=== PATIENT | female | born 1995 | race Caucasian/White ===

== ENCOUNTER → 2018-12-17 21:22 | Outpatient (CLI) | payer OTHER, SELFPAY ==
[2018-12-17 21:42] VITALS: BMI 25.4
== END ==
PROVIDERS: PCP Family Medicine; Visit Provider Emergency Medicine
DX: J02.0 Streptococcal pharyngitis (principal)
CPT/HCPCS: G0463; J0561

== ENCOUNTER → 2019-02-14 09:26 | Outpatient (CLI) | payer OTHER, SELFPAY | PROVIDERS: PCP Family Medicine; Visit Provider Nurse Practitioner | DX: J02.9 Acute pharyngitis, unspecified (principal) | CPT/HCPCS: 87070; 87077; 87186 ==

== ENCOUNTER → 2020-06-30 16:19 | Outpatient (CLI) | payer OTHER, SELFPAY | PROVIDERS: PCP Family Medicine; Visit Provider Internal Medicine Adolescent Medicine | DX: Z20.828 Contact with and (suspected) exposure to other viral communicable diseases (principal) | CPT/HCPCS: U0003 ==

== ENCOUNTER → 2020-07-22 08:14 | Outpatient (CLI) | payer OTHER, SELFPAY ==
--- NOTE | 2020-07-22 08:18 | US_ITS ---
PROCEDURE: US ABDOMEN LIMITED CLINICAL INDICATION: RUQ ABD PAIN COMPARISON: No exams were available for comparison FINDINGS: PANCREAS: Unremarkable. No obvious mass or abnormal fluid collection. No ductal dilatation LIVER: No focal liver lesions demonstrated. Homogeneous echogenicity. No intrahepatic biliary ductal dilatation evident. There is appropriate direction of blood flow within a non dilated portal vein RIGHT KIDNEY: Unremarkable. Normal size and echogenicity. No hydronephrosis GALLBLADDER: No gallstones, gallbladder wall thickening, pericholecystic fluid, or biliary dilatation. IMPRESSION: Unremarkable limited abdominal ultrasound as detailed above disc Dictated by: Panfilo Corley MD 07/22/2020 12:47 Panfilo Corley MD in [place] 07/22/2020 12:47
== END ==
PROVIDERS: PCP Family Medicine; Visit Provider Family Medicine
DX: R10.11 Right upper quadrant pain (principal)
CPT/HCPCS: 76705

== ENCOUNTER → 2020-07-23 11:54 | Outpatient (CLI) | payer OTHER, SELFPAY ==
--- NOTE | 2020-07-23 12:01 | CT_ITS ---
PROCEDURE: CT ABDOMEN PELVIS W CON CLINICAL INDICATION: GENERALIZED ABD PAIN Right upper quadrant and periumbilical pain with nausea and diarrhea COMPARISON: CT ABDPELW/O CT ABD PELVIS W/O CONTRAST from 08/14/2015 TECHNIQUE: IV Contrast: 75ML OPTIRAY 350 Oral Contrast 450ml Redicat Axial images obtained with sagittal and coronal reformats. All CT scans at the facility use one or more dose reduction, viz: automated exposure control, ma/kV adjustment per patient size (including targeted exams where dose is matched to indication, i.e. head), or iterative reconstruction technique. FINDINGS: LOWER THORAX: No acute finding ABDOMEN & PELVIS: The liver, spleen, adrenal glands, pancreas, and kidneys have an unremarkable appearance. No evidence of appendicitis, intestinal obstruction, or free air. There are few scattered small mesenteric lymph nodes. There is mild thickening of the sigmoid colon and rectosigmoid region. This is nonspecific and could be related to nondistention or mild colitis. There is some heterogeneous enhancement of the uterus which is also nonspecific. No pelvic mass or abnormal fluid collection is evident. No acute bony anomaly. IMPRESSION: 1. There is mild thickening of the sigmoid colon and rectosigmoid region. This is nonspecific and may be secondary to nondistention versus mild colitis. 2. No renal or ureteral calculi. No evidence of appendicitis or other acute anomaly. Dictated by: Panfilo Corley MD 07/23/2020 13:10 Panfilo Corley MD in [place] 07/23/2020 13:10
== END ==
PROVIDERS: PCP Family Medicine; Visit Provider Family Medicine
DX: R10.84 Generalized abdominal pain (principal); R11.0 Nausea; R19.7 Diarrhea, unspecified
CPT/HCPCS: 74177; Q9967

== ENCOUNTER → 2020-07-24 09:25 | Outpatient (CLI) | payer OTHER, SELFPAY ==
[2020-07-24 09:27] LABS: Adenovirus F 40/41, stool Not Detected (NotDetected); Astrovirus Not Detected (NotDetected); Campylobacter Not Detected (NotDetected); Clostridium Difficile A/B, PCR Not Detected (NotDetected); Cryptosporidium Not Detected (NotDetected); Cyclospora Cayetanesis Not Detected (NotDetected); Entamoeba histolytica Not Detected (NotDetected); Enteroaggregative E coli Not Detected (NotDetected); Enteropathogenic E coli Not Detected (NotDetected); Enterotoxigenic E coli Not Detected (NotDetected); Giardia lamblia Not Detected (NotDetected); Norovirus Not Detected (NotDetected); Plesimonas Shigalloides, PCR Not Detected (NotDetected); Rotavirus A Not Detected (NotDetected); Salmonella, PCR Not Detected (NotDetected); Sapovirus Not Detected (NotDetected); Shiga-like toxin E coli Not Detected (NotDetected); Shigella Enterovasive E coli Not Detected (NotDetected); Vibrio Cholerae Not Detected (NotDetected); Vibrio, PCR Not Detected (NotDetected); Yersinia Entercolitica, PCR Not Detected (NotDetected)
== END ==
PROVIDERS: Visit Provider Surgery
DX: R19.7 Diarrhea, unspecified (principal)
CPT/HCPCS: 87506

== ENCOUNTER 2022-06-19 12:54 | Emergency (ER) | payer OTHER, SELFPAY ==
[2022-06-19 13:05] VITALS: BP 120/75; PULSE 101; RESP 22; TEMP 36.8; O2SAT 99; BMI 28.7
--- NOTE | 2022-06-19 13:15 | HMH.EDUTC ---
[facility] [place] Disposition Clinical Impression: Strep throat Disposition: Home, Self-Care Condition on Discharge: Good Instructions: DI for Strep Throat, Strep Throat, Amoxicillin Additional Instructions: *Monitor Temp, Over the counter Motrin or Tylenol as directed/as needed Tylenol every 4 hours and Motrin every 6 hours (as long as your family doctor has told you that you can take it) for fever or pain. and straight to ER if unable to lower temp less than 101.0 after medication given *Warm salt water gargles may help to soothe the throat *Throat Lozenges *Warm fluids like tea with honey may help to soothe the throat *Sleep elevated *Humidifier/Vaporizer *If you did not take Penicillin shot or was unable to, start taking antibiotic immediately and make sure that you take it for the FULL length of time although you should start to feel better in 24-48 hours *change toothbrush and toothpaste 24-48 hours after starting to take antibiotics so you do not reinfect yourself Monitor Temp. Tylenol and/or Ibuprofen as needed. ER if fever is no less than 101 despite alternating Tylenol and Ibuprofen * Encourage fluids, water, Gatorade, powerade, pedialyte if /toddler/or child *Cold fluids, popsicles and ice cream may feel good on his throat Follow up IMMEDIATELY for new or worsening symptoms or no Noticeable improvement over the next 48-72 hours. 911 for difficulty breathing or swallowing Prescriptions: Amoxicillin [Amoxicillin 500mg Cap] 500 mg PO BID 10 Days #20 cap Transmission Status: Pending to [id number] Referrals: Gurpreet Gamez MD [Primary Care Provider] - As needed Time of Disposition: 13:21 Medical Decision Making - Sahil Inquiry Pt receiving controlled substance: No Sahil was queried for this patient: No Vital Signs: 06/19/22 13:05 Temperature 98.3 F Temperature Source Oral Pulse Rate [Right Brachial] 101 H Respiratory Rate 22 Blood Pressure [Right Arm] 120/75 Blood Pressure Mean [Right Arm] 90 Blood Pressure Source [Right Arm] Automatic Cuff Blood Pressure Position [Right Arm] Sitting 02 Sat by Pulse Oximetry 99 Oxygen Delivery Method Room Air - Lab Data Lab results reviewed: Yes: I reviewed the patient's lab results. Medical Decision Narrative: medication verified with pharmacy that is safe to use during [facility] [place] HPI - General Stated complaint: sore throat Time Seen by Provider: 06/19/22 13:15 Description of Symptoms (Recalled from Triage Doc. by RN): PT C/O SORE THROAT, HEADACHE, AND A COUGH THAT STARTED LAST NIGHT HEENT Symptoms (Recalled from RN notes): Yes Resp Symptoms (Recalled from RN notes): No Skin Symptoms (Recalled from RN notes): No MS Symptoms (Recalled from RN notes): No Functional Status (Recalled from RN notes): WNL - History of Present Illness Provider Complaint: Patient states that she is 31wks OB and last night she started with bad sore throat and cough States that she feels like she is swallowing razor blades and today she had a headache with it States that over all she just doesnt feel well so she came in to get checked out - Related Data Previous Rx's Medication Instructions Recorded ondansetron 4 mg disintegrating 4 mg PO Q6H PRN #120 tab 07/27/20 tablet Amoxicillin [Amoxicillin 500mg 500 mg PO BID 10 Days #20 cap 06/19/22 Cap] Allergies Allergy/AdvReac Type Severity Reaction Status Date / Time No Known Allergies Allergy Verified 03/14/19 15:30 - Worker's Comp Is this a Worker's Comp case?: No [facility] History - Hepatitis A Screen Attestation statement:: This patient has been screened for Hepatitis A risk factors. I have reviewed the patient's past medical history: Yes - Social History Smoking Status: Never smoker Alcohol Intake: never Substance Use Type: denies use Occupational Status: employed Household Members: family ROS Obtained: Yes All systems reviewed & no additional complaints, Yes Systems reviewed
[2022-06-19 13:18] LABS: UTC Strep Screen (Rapid) Positive (Negative)
[2022-06-19 13:20] VITALS: BP 120/75; PULSE 101; RESP 22; TEMP 36.8; O2SAT 99
== END 2022-06-19 13:25 | disposition home or self-care (01) ==
PROVIDERS: Emergency Provider Nurse Practitioner; PCP Family Medicine
DX: J02.0 Streptococcal pharyngitis (principal)
CPT/HCPCS: 87880; 99212; G0463

== ENCOUNTER 2023-03-02 18:04 | Observation (INO) | payer OTHER, SELFPAY ==
[2023-03-02] VITALS (14 sets, daily range): BP systolic 115–154; BP diastolic 51–96; PULSE 56–85; RESP 12–18; TEMP 36.2–43; O2SAT 90–99; BMI 27.3
--- NOTE | 2023-03-02 18:09 | HMH.EDGENADL ---
Discharge Plan Disposition Patient Disposition: Admitted As Inpatient Prescriptions Prescriptions: No Action alprazolam [Xanax] 0.25 mg tablet 0.25 mg PO BID PRN (Reason: Anxiety) sertraline [Zoloft] 50 mg tablet 50 mg PO DAILY Referrals Follow up/Referrals: Provider,Lindsey, [Primary Care Provider] - See instructions Clinical Impressions Clinical Impression: Intraperitoneal hemorrhage, of unknown anatomic location Instructions Patient Instructions: DI for Acute Abdominal Pain Discharge ED Provider: Agustin Kenyon General Adult HPI General Chief complaint: Abdominal Pain Stated complaint: abd pain Time Seen by Provider: 03/02/23 18:09 History of Present Illness HPI narrative: Patient is a 27-year-old previously healthy with a history of A1 who is currently at unknown dates presents today with abdominal pain was relatively sudden in nature. She works here in the emergency department states that within the last hour she had relatively sudden lower abdominal pain's been pretty significant since that time. Denies any constipation any changes in bowel habits or urination. No loss of fluid no vaginal bleeding no contractions. She does have a history of an ectopic diagnosed in 2012. She states this was treated at [facility]. She is followed by [employer] [facility] and is recently thinking about changing her care to Dr. Griffin here in [place]. She is not on any anticoagulation and she has no other significant medical problems. Related Data Home Medications Medication Instructions Recorded Confirmed alprazolam 0.25 mg tablet (Xanax) 0.25 mg PO BID PRN Anxiety 03/02/23 03/02/23 sertraline 50 mg tablet (Zoloft) 50 mg PO DAILY Anxiety 03/02/23 03/02/23 Allergies Allergy/AdvReac Type Severity Reaction Status Date / Time No Known Allergies Allergy Verified 02/02/23 10:48 [facility] Disclaimer: The information contained in this section may have been updated after the patient was seen, as this information can be updated by other users. Medical History (Updated 03/02/23 @ 19:31 by Agustin Kenyon MD) Generalized anxiety disorder Social History Smoking Status: Never smoker second hand exposure: No alcohol intake: never substance use type: denies use current occupational status: employed Travel in the last 8 weeks: None adopted: No caregiver/support person: Yes (for her kids) foster care: No household members: spouse and children housing: house lives independently: Yes marital status: number of children: 3 number of grandchildren: 0 education level: high school service: No alf: No Hx Recent Travel: No sexually active: Yes caffeine: Yes physical activity: none romi/quaker: Anabaptist special romi needs: No working smoke detector in home: Yes fire extinguisher in home: Yes carbon monox detector in home: Yes firearms in home: Yes firearms unloaded and locked: Yes do you feel safe at home: Yes victim of physical abuse: No victim of emotional abuse: No victim of sexual abuse: No would you like helpful sources: No ROS Obtained: Yes All systems reviewed & no additional complaints except as documented Physical Exam General General appearance: alert and other (Appears in mild distress and pain) Respiratory Respiratory exam: Absent respiratory distress Cardiovascular Cardiovascular exam: Present regular rate Abdominal Exam Abdominal exam: Present soft and tenderness (Tenderness palpation suprapubic no rebound or guarding) Neurological Exam Neurological exam: Present alert and oriented X3 Medical Decision Making Sahil Inquiry Pt receiving controlled substance: No Vital Signs: 03/02/23 18:05 Temperature 98.1 F Temperature Source Oral Pulse Rate [Left] 76 Respiratory Rate 18 Blood P
--- NOTE | 2023-03-02 18:10 | PC.NURSE ---
US CALLED IN FOR R/O ECTOPIC
--- NOTE | 2023-03-02 18:10 | US_ITS ---
PROCEDURE INFORMATION: Exam: US First Trimester, Transabdominal and US , Transvaginal Exam date and time: 03/02/2023 6:39 PM Age: 27 years old Clinical indication: complicated by abdominal or pelvic pain; Lower; First trimester (<14 weeks 0 days); Gestational age or lmp: 4w3d; ; Patient HX: Onset or acute pelvic pain /back pain tonight---bhcg 285-- post x 7 mos-- unsure of lmp 01/30/2023 ? ? -- no bleeding; Additional info: Abd pain, TECHNIQUE: Imaging protocol: Real-time transabdominal obstetrical ultrasound of the maternal pelvis and a first trimester , less than 14 weeks 0 days, with image documentation. Transvaginal imaging was used for better evaluation of the fetus, adnexa, and/or cervix. COMPARISON: CT ABDOMEN PELVIS W CON 07/23/2020 12:22 PM FINDINGS: Gestation: See Uterus finding. MATERNAL: Uterus: Uterus appears normal. No visible IUP identified. Cervix: Unremarkable. Right ovary/adnexa: Right ovary contains a multilobulated cystic lesion measuring 2.6 cm. Right ovarian blood flow noted. Small amount of free fluid in the right adnexa and minimal fluid in Morison's pouch. Left ovary/adnexa: Left ovary appears normal with blood flow. Intraperitoneal space: No intraperitoneal free fluid. IMPRESSION: 1. No visible IUP identified. This may be due to early gestational age. In the setting of positive test with no visible IUP an occult ectopic can not be excluded. Correlation with serial hCGs may be of value and consider short-term follow-up ultrasound in 2-3 weeks to assess for developing live IUP. 2. Incidental 2.6 cm right ovarian cystic lesion likely a partially collapsed physiologic cyst. 3. Incidental small amount of free fluid in the pelvis and Morison's pouch.
[2023-03-02 18:26] LABS: Microscopic, Urine URINE MICROSCOPIC (MICROSCOPIC)
[2023-03-02 18:32] LABS: Appearance,Urine CLEAR (Clear); Bilirubin,Urine Negative (Negative); Blood, Urine 2+ (Negative); Color,Urine YELLOW (Yellow); Glucose,Urine (UA) Negative (Negative); Ketones,Urine Negative (Negative); Leukocyte Esterase,Urine 1+ (Negative); Nitrate,Urine Negative (Negative); Protein,Urine TRACE (Negative); Urobilinogen,Urine 0.2 EU/dl (0.2)
--- NOTE | 2023-03-02 18:36 | PC.NURSE ---
PT GOING TO US
[2023-03-02 18:38] LABS: Basophils # 0.1 K/mm3 (0-0.2); Basophils % 1.2 % (0.1-2.0); Eosinophils # 0.2 K/mm3 (0.0-0.4); Eosinophils % 2.5 % (0.1-12.0); Hemoglobin 13.7 g/dL (12.2-16.2); Lymphocytes # 3.1 K/mm3 (0.7-4.5); Lymphocytes % 35.4 % (10-50); Mean Corpuscular HGB Conc 33.3 g/dL (31.8-35.4); Mean Corpuscular Hemoglobin 29.6 pg (27.0-31.2); Mean Corpuscular Volume 88.7 fl (81-99); Mean Platelet Volume 7.8 fl (7.4-10.4); Monocytes # 0.6 K/mm3 (0.1-1.0); Monocytes % 7.1 % (1.7-9.3); Neutrophils # 4.7 K/mm3 (1.8-7.8); Neutrophils % 53.7 % (37.0-80.0); Platelet Count 324 K/mm3 (142-424); Red Blood Count 4.62 M/mm3 (4.20-5.40); Red Cell Distribution Width 13.6 % (11.5-17.5); White Blood Count 8.8 K/mm3 (4.8-10.8)
[2023-03-02 18:50] LABS: Chloride 101 mmol/L (98-107); Sodium 138 mmol/L (136-145)
[2023-03-02 18:53] LABS: Alanine Aminotransferase 22 U/L (12-78); Albumin Level 4.8 g/dl (3.5-5.0); Albumin/Globulin Ratio 1.4 (1.1-1.8); Alkaline Phosphatase 101 U/L (38-126); Aspartate Amino Transferase 26 U/L (14-36); Bilirubin,Total 0.4 mg/dl (0.2-1.3); Blood Urea Nitrogen 14 mg/dl (7-17); Carbon Dioxide 28 mmol/L (22.0-30.0); Creatinine Clearance Estimated 144 mL/min (50-200); Estimated Glomerular Filt Rate 118 ml/min (>60); GFR (African American) 143 ML/MIN (>60); Globulin 3.4 g/dL (1.3-3.2); Total Protein,Serum 8.2 g/dl (6.3-8.2)
[2023-03-02 18:54] LABS: Glucose 100 mg/dl (74-100)
[2023-03-02 18:58] LABS: Bacteria,Urine 2+ /lpf; RBC,Urine Occasional #/hpf (0-3); WBC,Urine Occasional #/hpf (0-3)
[2023-03-02 19:01] LABS: Activated Partial Thrombo Time 31.4 seconds (22.8-30.6); Prothrombin Time 9.8 seconds (10.1-12.5)
[2023-03-02 19:10] LABS: HCG,Quantitative 295 mIU/ml (0-5.42)
--- NOTE | 2023-03-02 19:16 | PC.NURSE ---
Dr. Kenyon speaking with Dr. Barrera at this time.
--- NOTE | 2023-03-02 19:30 | PC.NURSE ---
Spoke with house to have surgery team paged
--- NOTE | 2023-03-02 19:32 | PC.NURSE ---
Surgery team paged, and received call back.
--- NOTE | 2023-03-02 20:01 | EXP.HP ---
History of Present Illness *Admission Date: 03/02/23 *Reason for visit:: Acute pelvic pain *History of present illness: Mrs Esmer Thompson is a 27 yo at unknown early gestational age who presents with complaint of sudden onset pelvic pain around 1800 this evening while at work. She states she went to the bathroom when pain startedto check for vaginal bleeding. No vaginal bleeding but pain increased and she became diaphoretic. She admits to associated nausea. Beta hcg quant 295. ABO RH is pending. Hgb 13.7. She last ate at 1700. History of SAB in 2012 for which she had a diagnostic laparoscopy but is unsure if she had an ectopic or not. Hx of x 3: 07/06/2018, 01/02/2020, 07/28/22. She is currently breast feeding. Denies past medical history. Pelvic ultrasound demonstrated: no visible IUP.. This may be due to early gestational age. In the setting of positive test with no visible IUP an occult ectopic can not be excluded.? Correlation with serial hCGs may be of value and consider short-term follow-up ultrasound in 2-3 weeks to assess for developing live IUP. 2. Incidental 2.6 cm right ovarian cystic lesion likely a partially collapsed physiologic cyst. 3. ?Incidental small amount of free fluid in the pelvis and Morison's pouch. [facility] Disclaimer: The information contained in this section may have been updated after the patient was seen, as this information can be updated by other users. Medical History Acute generalized abdominal pain Generalized anxiety disorder Social History Smoking Status: Never smoker second hand exposure: No alcohol intake: never substance use type: denies use current occupational status: employed Travel in the last 8 weeks: None adopted: No caregiver/support person: Yes (for her kids) foster care: No household members: spouse and children housing: house lives independently: Yes marital status: number of children: 3 number of grandchildren: 0 education level: high school service: No custodial: No Hx Recent Travel: No sexually active: Yes caffeine: Yes physical activity: none romi/sabianist: Rastafarian special romi needs: No working smoke detector in home: Yes fire extinguisher in home: Yes carbon monox detector in home: Yes firearms in home: Yes firearms unloaded and locked: Yes do you feel safe at home: Yes victim of physical abuse: No victim of emotional abuse: No victim of sexual abuse: No would you like helpful sources: No Review of Systems Review of Systems Review of systems:: pertinent systems reviewed and negative unless documented below *Gastrointestinal Gastrointestinal: Reports abdominal pain and Reports nausea Meds Home Medications and Allergies Home Medications Medication Instructions Recorded Confirmed Type alprazolam 0.25 mg tablet (Xanax) 0.25 mg PO BID PRN Anxiety 03/02/23 03/02/23 History sertraline 50 mg tablet (Zoloft) 50 mg PO DAILY Anxiety 03/02/23 03/02/23 History New Prescriptions to Start Prescriptions: Allergies Allergy/AdvReac Type Severity Reaction Status Date / Time No Known Allergies Allergy Verified 02/02/23 10:48 Exam Data for Last 24 hours Vital signs and Labs for Last 24 Hours: Temp Pulse Resp BP Pulse Ox 98.1 F 76 18 140/93 H 99 03/02/23 18:05 03/02/23 18:05 03/02/23 18:05 03/02/23 18:05 03/02/23 18:05 Laboratory Results - last 24 hr 03/02/23 18:10: Urine Color Yellow, Urine Appearance Clear, Urine pH 8.0, Ur Specific [place] 1.010, Urine Protein Trace, Urine Glucose (UA) Negative, Urine Ketones Negative, Urine Blood 2+, Urine Nitrate Negative, Urine Bilirubin Negative, Urine Urobilinogen 0.2, Ur Leukocyte Esterase 1+ A, Urine RBC Occasional, Urine WBC Occasional, Ur Squamous Epith Cells 5-10,
--- NOTE | 2023-03-02 20:13 | PC.NURSE ---
Patient prepped for OR. Surgery team here to transport patient
--- NOTE | 2023-03-02 21:13 | P.PN_ITS ---
[facility] Disclaimer: The information contained in this section may have been updated after the patient was seen, as this information can be updated by other users. Medical History Acute generalized abdominal pain Generalized anxiety disorder Social History Smoking Status: Never smoker second hand exposure: No alcohol intake: never substance use type: denies use current occupational status: employed Travel in the last 8 weeks: None adopted: No caregiver/support person: Yes (for her kids) foster care: No household members: spouse and children housing: house lives independently: Yes marital status: number of children: 3 number of grandchildren: 0 education level: high school service: No long-term: No Hx Recent Travel: No sexually active: Yes caffeine: Yes physical activity: none romi/scientology: Mu-Ism special romi needs: No working smoke detector in home: Yes fire extinguisher in home: Yes carbon monox detector in home: Yes firearms in home: Yes firearms unloaded and locked: Yes do you feel safe at home: Yes victim of physical abuse: No victim of emotional abuse: No victim of sexual abuse: No would you like helpful sources: No [facility] Anesthesia Checklist Patient Identification Patient Identification: Verbal (Name & ) Structural Data Admitted From: Emergency Dept Planned Operative Procedure/s: dx laparoscopy Consent for Planned Operative Procedure(s) Verified: Yes Airway Assessment C-Spine Mobility Assessed: Yes TMJ Mobility Assessed: Yes Dentition: Good Dentition Neurological Assessment Level of Consciousness: Awake, Alert and Appropriate Anesthesia Plan Anesthesia Risk discussed: Yes Anesthesia Plan: Verified ASA Class: II Anesthesia Type: General
--- NOTE | 2023-03-02 21:34 | EXP.ANES.I ---
[facility] Anesthesia Record Part I Anesthesia Record I Intake, IV Amount: 1,500 Estimated blood loss (mL): 50 Urine output (mL): 500 Blood Pressure: 150/83 SaO2: 94 Pulse Rate: 85 Respiratory Rate: 12 Temperature: 97.2 F Patient is:: Awake and Stable Stable to PACU at:: 21:30
--- NOTE | 2023-03-02 21:38 | EXP.OP.NOTE ---
Date of procedure: 03/02/23 Pre-op Diagnosis:: 1. of unknown location 2. Intraperitoneal hemorrhage 3. Abdominal pain Post-op Diagnosis:: 1. of unknown location 2. Intraperitoneal hemorrhage 3. Abdominal pain Procedure performed:: 1. Diagnostic laparoscopy, evacuation of hemoperitoneum Surgeon:: Tigist Barrera DO Tube Turner(s):: N/a MAC OPERATOR:: Henry Botello Anesthesia: GETA Estimated blood loss (mL): 50 Clinical Note:: Mrs Esmer Thompson is a 27 yo at unknown early gestational age who presents with complaint of sudden onset pelvic pain around 1800 this evening while at work. She states she went to the bathroom when pain startedto check for vaginal bleeding. No vaginal bleeding but pain increased and she became diaphoretic. She admits to associated nausea. Beta hcg quant 295. ABO RH is pending. Patient states she has never needed Rhogam with prior pregnancies. Hgb 13.7. She last ate at 1700. History of SAB in 2012 for which she had a diagnostic laparoscopy but is unsure if she had an ectopic or not. Hx of x 3: 07/06/2018, 01/02/2020, 07/28/22. She is currently breast feeding. Denies past medical history. Pelvic ultrasound demonstrated:?no visible IUP.. This may be due to early gestational age. In the setting of positive test with no visible IUP an occult ectopic can not be excluded.? Correlation with serial hCGs may be of value and consider short-term follow-up ultrasound in 2-3 weeks to assess for developing live IUP.? 2. Incidental 2.6 cm right ovarian cystic lesion likely a partially collapsed physiologic cyst. 3. ?Incidental small amount of free fluid in the pelvis and Morison's pouch. Operative findings:: 1. Upon laparoscopic exam, liver, gallbladder, stomach and bowel appeared grossly normal. Approximately 50 cc of blood in the pelvis. Grossly normal appearing uterus, bilateral fallopian tubes and ovaries. No ectopic pregancy identified. Operative note:: Risks, benefits and alternatives were discussed with the patient. Risks include but are not limited to bleeding, infection, damage to adjacent structures and VTE. Patient voiced understanding and agreed to proceed with surgery. She was wheeled back to the operating room and placed under general anesthesia without difficulty. She was placed in the dorsal lithotomy position and prepped and draped in normal sterile fashion. A straight catheter was used to drain the bladder. The patient received 2 grams of Ancef preoperatively. SCDs in place. A weighted Auvard was placed in the vaginal vault. A single tooth tenaculum was placed on the anterior lip of the cervix. Short Mesick manipulator was inserted into the cervical canal and attached to the tenaculum. Weighted Auvard was removed from the vagina. Attention was then drawn to the abdomen. A 2cm infraumbilical incision was made. Veress needle was tested and inserted intraabdominally without difficulty. Opening pressure of 5 mm Hg. Abdomen was then insulflated to 15 mm Hg. An 11 mm trocar was inserted through infraumbilical incision. Obturator was removed and sleeve was left in place. Laparoscope was inserted. Abdomen was viewed in its entirety. See findings above. Pictures were taken. Left lower quadrant was transilluminated. 5 mm incision was made and 5 mm disposable blunt trocar was inserted into the abdomen under direct laparoscopic visualization. Trocar was removed and sleeve was left in place. Right lower quadrant was transilluminated. A 5 mm incision was made and a 5 mm disposable trocar was inserted into the abdomen under direct laparoscopic visualization. Obturator was removed and sleeve was left in place. Hemoperitoneum was evacuated. Pelvis was irrigated. No source of bleeding identified. No active bleeding noted. Pictures were taken. Left lower quadrant trocar was removed under direct laparoscopic visualization. Right lower quadrant trocar was removed under direct laparoscopic visualization.
--- NOTE | 2023-03-02 22:04 | PC.NURSE ---
Patient arrived to the unit at this time via stretcher. 2 OR staff and accompanied patient.
--- NOTE | 2023-03-02 22:16 | SUR.PHASEI ---
2199- Report called to PETER Cruz by PETER Myrick. 2204- Patient left in stable condition with PETER Cruz. All dressings clean, dry, and intact. Vital signs stable.
[2023-03-03] VITALS (9 sets, daily range): BP systolic 98–133; BP diastolic 45–96; PULSE 56–91; RESP 15–16; TEMP 36.2–36.8; O2SAT 90–98
--- NOTE | 2023-03-03 05:02 | PC.NURSE ---
Patient has remained afebrile throughout the night, thus far. No pain medication has been requested from patient. Incision sites remain clean, dry and intact. Respirations are equal and unlabored with breath sounds CTA. Bowel sounds are active. IV site is patent and non tender.
--- NOTE | 2023-03-03 06:51 | EXP.DC.SUM ---
General Admission date:: 03/02/23 Discharge date: 03/03/23 HPI HPI HPI: POD # 1 s/p diagnostic laparoscopy, evacuation of hemoperitoneum Resting comfortably in bed. Denies pain. Denies vaginal bleeding. She has been sleeping all night. Denies fever/chills, chest pain and shortness of breath. Voiding without difficulty and passing flatus. No nausea or vomiting. Hospital Course Hospital Course Hospital Course: Mrs Esmer Thompson is a 27 yo at unknown early gestational age who presents with complaint of sudden onset pelvic pain around 1800 this evening while at work. She states she went to the bathroom when pain startedto check for vaginal bleeding. No vaginal bleeding but pain increased and she became diaphoretic. She admits to associated nausea. Beta hcg quant 295. ABO RH is pending. Hgb 13.7. She last ate at 1700. History of SAB in 2012 for which she had a diagnostic laparoscopy but is unsure if she had an ectopic or not. Hx of x 3: 07/06/2018, 01/02/2020, 07/28/22. She is currently breast feeding. Denies past medical history. Pelvic ultrasound demonstrated: no visible IUP.. This may be due to early gestational age. In the setting of positive test with no visible IUP an occult ectopic can not be excluded.? Correlation with serial hCGs may be of value and consider short-term follow-up ultrasound in 2-3 weeks to assess for developing live IUP. 2. Incidental 2.6 cm right ovarian cystic lesion likely a partially collapsed physiologic cyst. 3. ?Incidental small amount of free fluid in the pelvis and Morison's pouch. She underwent diagnostic laparoscopy, evacuation of hemoperitoneum. She requested to stay overnight after surgery. Doing well this morning. Denies pain and vaginal bleeding. Voiding without difficulty and passing flatus. No fever/chills, chest pain or shortness of breath. Vital signs stable, afebrile. Discharge to home this morning if AM labs within normal limits and she continues to feel well. AM labs pending. Exam Data for Last 24 hours Vital signs and Labs for Last 24 Hours: Temp Pulse Resp BP Pulse Ox 97.9 F 83 15 100/53 L 97 03/03/23 04:15 03/03/23 04:15 03/03/23 04:15 03/03/23 04:15 03/03/23 04:15 Laboratory Results - last 24 hr 03/02/23 18:10: Urine Color Yellow, Urine Appearance Clear, Urine pH 8.0, Ur Specific [place] 1.010, Urine Protein Trace, Urine Glucose (UA) Negative, Urine Ketones Negative, Urine Blood 2+, Urine Nitrate Negative, Urine Bilirubin Negative, Urine Urobilinogen 0.2, Ur Leukocyte Esterase 1+ A, Urine RBC Occasional, Urine WBC Occasional, Ur Squamous Epith Cells 5-10, Urine Bacteria 2+ 03/02/23 18:15: WBC 8.8, RBC 4.62, Hgb 13.7, Hct 41.0, MCV 88.7, MCH 29.6, MCHC 33.3, RDW 13.6, Plt Count 324, MPV 7.8, Neut % (Auto) 53.7, Lymph % (Auto) 35.4, [place] % (Auto) 7.1, Eos % (Auto) 2.5, Baso % (Auto) 1.2, Neut # (Auto) 4.7, Lymph # (Auto) 3.1, [place] # (Auto) 0.6, Eos # (Auto) 0.2, Baso # (Auto) 0.1 03/02/23 18:15: PT 9.8 L, INR 0.90, APTT 31.4 H 03/02/23 18:15: Sodium 138, Potassium 4.0, Chloride 101, Carbon Dioxide 28, Anion Gap 13.0, BUN 14, Creatinine 0.60, Estimated Creat Clear 144, Estimated GFR 118, Est GFR ( Amer) 143, Glucose 100, Calcium 9.0, Total Bilirubin 0.4, AST 26, ALT 22, Alkaline Phosphatase 101, Total Protein 8.2, Albumin 4.8, Globulin 3.4 H, Albumin/Globulin Ratio 1.4, HCG, Quant 295 H 03/02/23 23:15: Blood Type O Positive, Antibody Screen Negative I & O for Last 24 hours: Intake & Output 02/28/23 03/01/23 03/02/23 03/03/23 23:59 23:59 23:59 23:59 Intake Total 1500 / 1500 Output Total 300 / 300 250 / 250 Balance 1200 / 1200 -250 / -250 Weight 145 lb 0.004 oz Constitutional Constitutional: no acute distress *Routine HEENT Exam Head: Present normocephalic and atraumatic Eye: Absent conjunctivae pink ENT: Present mucous membranes moist *Routine Neck Exam Neck: Present full ROM *Routine Respiratory Exam Respira
[2023-03-03 07:03] LABS: Basophils % 0.3 % (0.1-2.0); Eosinophils % 0.3 % (0.1-12.0); Hematocrit 41.8 % (37.0-47.0); Hemoglobin 13.6 g/dL (12.2-16.2); Lymphocytes # 1.3 K/mm3 (0.7-4.5); Lymphocytes % 12.7 % (10-50); Mean Corpuscular HGB Conc 32.7 g/dL (31.8-35.4); Mean Corpuscular Hemoglobin 28.8 pg (27.0-31.2); Mean Corpuscular Volume 88.3 fl (81-99); Mean Platelet Volume 7.8 fl (7.4-10.4); Monocytes # 0.3 K/mm3 (0.1-1.0); Monocytes % 2.5 % (1.7-9.3); Neutrophils # 8.6 K/mm3 (1.8-7.8); Neutrophils % 84.3 % (37.0-80.0); Platelet Count 343 K/mm3 (142-424); Red Blood Count 4.73 M/mm3 (4.20-5.40); Red Cell Distribution Width 13.8 % (11.5-17.5); White Blood Count 10.3 K/mm3 (4.8-10.8)
[2023-03-03 07:08] LABS: Chloride 103 mmol/L (98-107); Potassium 4.3 mmoL/L (3.5-5.1); Sodium 137 mmol/L (136-145)
[2023-03-03 07:10] LABS: Blood Urea Nitrogen 10 mg/dl (7-17); Creatinine Clearance Estimated 172 mL/min (50-200); Estimated Glomerular Filt Rate 146 ml/min (>60); GFR (African American) 177 ML/MIN (>60)
[2023-03-03 07:11] LABS: Alanine Aminotransferase 23 U/L (12-78); Albumin Level 4.3 g/dl (3.5-5.0); Albumin/Globulin Ratio 1.5 (1.1-1.8); Alkaline Phosphatase 93 U/L (38-126); Anion Gap 12.3 mEq/L (5-15); Aspartate Amino Transferase 23 U/L (14-36); Bilirubin,Total 0.5 mg/dl (0.2-1.3); Calcium 8.8 mg/dl (8.4-10.2); Carbon Dioxide 26 mmol/L (22.0-30.0); Globulin 2.9 g/dL (1.3-3.2); Glucose 137 mg/dl (74-100); Total Protein,Serum 7.2 g/dl (6.3-8.2)
[2023-03-03 07:30] LABS: HCG Qualitative, Serum Positive (Negative)
[2023-03-03 08:08] LABS: HCG,Quantitative 296 mIU/ml (0-5.42)
--- NOTE | 2023-03-03 08:10 | EXP.ANES.CKL ---
[facility] Disclaimer: The information contained in this section may have been updated after the patient was seen, as this information can be updated by other users. Medical History Acute generalized abdominal pain Anxiety Generalized anxiety disorder Family History (Updated 03/02/23 @ 23:34 by Johana Lee RN) Other No significant family history Social History (Updated 03/02/23 @ 23:35 by Johana Lee RN) Smoking Status: Never smoker second hand exposure: No alcohol intake: never substance use type: denies use current occupational status: employed Travel in the last 8 weeks: None adopted: No caregiver/support person: Yes (for her kids) foster care: No household members: spouse and children housing: house lives independently: Yes marital status: number of children: 3 number of grandchildren: 0 education level: high school service: No long term: No Hx Recent Travel: No sexually active: Yes caffeine: Yes physical activity: none romi/mu-ism: Amish special romi needs: No working smoke detector in home: Yes fire extinguisher in home: Yes carbon monox detector in home: Yes firearms in home: Yes firearms unloaded and locked: Yes do you feel safe at home: Yes victim of physical abuse: No victim of emotional abuse: No victim of sexual abuse: No would you like helpful sources: No [facility] Anesthesia Checklist Patient Identification Patient Identification: Verbal (Name & ) Structural Data Admitted From: Home Planned Operative Procedure/s: egd/colonoscopy Consent for Planned Operative Procedure(s) Verified: Yes Airway Assessment C-Spine Mobility Assessed: Yes TMJ Mobility Assessed: Yes Dentition: Good Dentition Neurological Assessment Level of Consciousness: Awake, Alert and Appropriate Anesthesia Plan Anesthesia Risk discussed: Yes Anesthesia Plan: Verified ASA Class: III Anesthesia Type: MAC
--- NOTE | 2023-03-03 08:29 | EXP.ANES.CKL ---
[facility] Disclaimer: The information contained in this section may have been updated after the patient was seen, as this information can be updated by other users. Medical History Acute generalized abdominal pain Anxiety Generalized anxiety disorder Family History (Updated 03/02/23 @ 23:34 by Johana Lee RN) Other No significant family history Social History (Updated 03/02/23 @ 23:35 by Johana Lee RN) Smoking Status: Never smoker second hand exposure: No alcohol intake: never substance use type: denies use current occupational status: employed Travel in the last 8 weeks: None adopted: No caregiver/support person: Yes (for her kids) foster care: No household members: spouse and children housing: house lives independently: Yes marital status: number of children: 3 number of grandchildren: 0 education level: high school service: No fpc: No Hx Recent Travel: No sexually active: Yes caffeine: Yes physical activity: none romi/restorationism: Mandaeism special romi needs: No working smoke detector in home: Yes fire extinguisher in home: Yes carbon monox detector in home: Yes firearms in home: Yes firearms unloaded and locked: Yes do you feel safe at home: Yes victim of physical abuse: No victim of emotional abuse: No victim of sexual abuse: No would you like helpful sources: No [facility] Anesthesia Checklist Patient Identification Patient Identification: Verbal (Name & ) Structural Data Admitted From: Home Planned Operative Procedure/s: hyst,d/c,bonnie Consent for Planned Operative Procedure(s) Verified: Yes NPO Status Verified Time NPO: 00:00 Airway Assessment C-Spine Mobility Assessed: Yes TMJ Mobility Assessed: Yes Dentition: Good Dentition Neurological Assessment Level of Consciousness: Awake, Alert and Appropriate Anesthesia Plan Anesthesia Risk discussed: Yes Anesthesia Plan: Verified ASA Class: II Anesthesia Type: General
--- NOTE | 2023-03-03 09:25 | P.PNANES_ITS ---
[facility] Anesthesia Record Part II Anesthesia Record Part II Discharge Time: 22:00 Destination: Outpatient Operating Room Dept PACU nurse assessment reviewed?: Yes Patient Condition:: Good Anesthesia Complications:: None Swallowing reflex intact?: Yes Cyanosis?: No Blood Pressure: 133/96 Pulse Rate: 66 Temperature: 97.2 F Mental Status: Alert & Oriented Pain level:: 4 Nausea and/or vomitting:: None Intake, IV Amount: 1,500
[2023-03-04 08:37] LABS: Progesterone 1.8 ng/mL (.)
== END 2023-03-03 08:35 | disposition home or self-care (01) ==
LOC: ER 19:31 → SDC 21:53 → OB 22:00
PROVIDERS: Admitting Provider Obstetrics & Gynecology; Emergency Provider Student in an Organized Health Care Education/Training Program; Visit Provider Obstetrics & Gynecology
PROC: (CPT 49320; principal; 2023-03-02 20:00)
DX: K66.1 Hemoperitoneum (principal); O36.80X0 Pregnancy with inconclusive fetal viability, not applicable or unspecified
CPT/HCPCS: 49320; 36415; 76817; 80053; 81001; 84144; 84702; 84703; 85025; 85610; 85730; 86850; 87086; 96374; G0378; J2405

== ENCOUNTER → 2023-03-06 08:55 | Outpatient (CLI) | payer OTHER, SELFPAY ==
[2023-03-06 09:48] LABS: HCG,Quantitative 398 mIU/ml (0-5.42)
[2023-03-07 11:13] LABS: Progesterone 2.9 ng/mL (.)
== END ==
PROVIDERS: Obstetrics & Gynecology; PCP Family Medicine; Visit Provider Student in an Organized Health Care Education/Training Program
DX: O36.80X0 Pregnancy with inconclusive fetal viability, not applicable or unspecified (principal)
CPT/HCPCS: 36415; 84144; 84702

== ENCOUNTER → 2023-03-08 12:19 | Outpatient (CLI) | payer OTHER, SELFPAY ==
[2023-03-08 13:01] LABS: HCG,Quantitative 438 mIU/ml (0-5.42)
== END ==
PROVIDERS: PCP Family Medicine; Visit Provider Obstetrics & Gynecology
DX: O36.80X0 Pregnancy with inconclusive fetal viability, not applicable or unspecified (principal)
CPT/HCPCS: 84702

== ENCOUNTER → 2023-03-10 07:21 | Outpatient (CLI) | payer OTHER, SELFPAY ==
[2023-03-10 08:09] LABS: HCG,Quantitative 437 mIU/ml (0-5.42)
[2023-03-11 08:24] LABS: Progesterone 11.1 ng/mL (.)
== END ==
PROVIDERS: PCP Family Medicine; Visit Provider Obstetrics & Gynecology
DX: O36.80X0 Pregnancy with inconclusive fetal viability, not applicable or unspecified (principal)
CPT/HCPCS: 84144; 84702

== ENCOUNTER → 2023-03-17 08:15 | Outpatient (CLI) | payer OTHER, SELFPAY ==
[2023-03-17 09:10] LABS: HCG,Quantitative 262 mIU/ml (0-5.42)
== END ==
PROVIDERS: PCP Family Medicine; Visit Provider Obstetrics & Gynecology
DX: O36.80X0 Pregnancy with inconclusive fetal viability, not applicable or unspecified (principal)
CPT/HCPCS: 84702

== ENCOUNTER → 2023-03-24 17:46 | Outpatient (CLI) | payer OTHER, SELFPAY ==
[2023-03-24 19:25] LABS: HCG,Quantitative 121 mIU/ml (0-5.42)
== END ==
PROVIDERS: PCP Family Medicine; Visit Provider Obstetrics & Gynecology
DX: Z34.90 Encounter for supervision of normal pregnancy, unspecified, unspecified trimester (principal)
CPT/HCPCS: 84702

== ENCOUNTER → 2023-04-03 08:57 | Outpatient (CLI) | payer OTHER, SELFPAY ==
[2023-04-03 10:00] LABS: HCG,Quantitative 23 mIU/ml (0-5.42)
== END ==
PROVIDERS: PCP Family Medicine; Visit Provider Obstetrics & Gynecology
DX: O03.9 Complete or unspecified spontaneous abortion without complication (principal)
CPT/HCPCS: 84702

== ENCOUNTER → 2023-04-17 09:33 | Outpatient (CLI) | payer OTHER, SELFPAY ==
[2023-04-17 11:10] LABS: HCG,Quantitative < 2 mIU/ml (0-5.42)
== END ==
PROVIDERS: PCP Family Medicine; Visit Provider Obstetrics & Gynecology
DX: O03.9 Complete or unspecified spontaneous abortion without complication (principal)
CPT/HCPCS: 84702

== ENCOUNTER → 2023-07-05 14:53 | Outpatient (CLI) | payer OTHER, SELFPAY ==
[2023-07-05 17:13] LABS: HCG,Quantitative 132 mIU/ml (0-5.42)
[2023-07-07 08:34] LABS: Progesterone 12.3 ng/mL (.)
== END ==
PROVIDERS: PCP Family Medicine; Visit Provider Obstetrics & Gynecology
DX: Z32.01 Encounter for pregnancy test, result positive (principal)
CPT/HCPCS: 36415; 84144; 84702

== ENCOUNTER → 2023-07-07 15:51 | Outpatient (CLI) | payer OTHER, SELFPAY ==
[2023-07-07 17:09] LABS: HCG,Quantitative 222 mIU/ml (0-5.42)
== END ==
PROVIDERS: PCP Family Medicine; Visit Provider Obstetrics & Gynecology
DX: Z32.01 Encounter for pregnancy test, result positive (principal)
CPT/HCPCS: 36415; 84702

== ENCOUNTER → 2023-07-18 08:48 | Outpatient (CLI) | payer OTHER, SELFPAY ==
[2023-07-18 09:45] LABS: HCG,Quantitative 6602 mIU/ml (0-5.42)
== END ==
PROVIDERS: PCP Obstetrics & Gynecology; Visit Provider Obstetrics & Gynecology
DX: Z32.01 Encounter for pregnancy test, result positive (principal)
CPT/HCPCS: 84702

== ENCOUNTER → 2023-08-14 11:41 | Outpatient (CLI) | payer OTHER, SELFPAY ==
--- NOTE | 2023-08-14 11:52 | US_ITS ---
PROCEDURE INFORMATION: Exam: US , Transvaginal Exam date and time: 08/14/2023 12:07 PM Age: 28 years old Clinical indication: Lmp or gestational age (in weeks): 8w6d; Antepartum complications; Bleeding; ; Patient HX: Spotting and cramping x 1 day; Additional info: Abdominal pain LABS AND CLINICAL REPORTS: Gestational age (Established): 8 w 6 d Estimated due date (Established): 03/19/2024 TECHNIQUE: Imaging protocol: Real-time transvaginal obstetrical ultrasound of the maternal pelvis with image documentation. Transvaginal imaging was used for better evaluation of the fetus, adnexa, and/or cervix. COMPARISON: US OB TRANSVAGINAL 03/02/2023 6:39 PM FINDINGS: Gestation: Yolk sac measures 5 mm. heart rate: No heartbeat detected. BIOMETRY: Gestational age (AUA): 6 w 4 d Estimated due date (AUA): 04/04/2024 Mean sac diameter: 18.5 mm [place]-Rump length (CRL): 3.8 mm. EGA (CRL) is 6 w 0 d MATERNAL: Right ovary/adnexa: Right ovary measures 2.42 cm x 1.56 cm x 1.59 cm. Right ovarian volume is 3.14 mL. No mass. Normal blood flow. Left ovary/adnexa: Left ovary measures 2.88 cm x 1.87 cm x 2.15 cm. Left ovarian volume is 6.06 mL. No mass. Normal blood flow. IMPRESSION: Intrauterine with AUA 6w4d. No heartbeat detected. Recommend follow-up ultrasound in 5-7 days and serial beta HCG per institutional protocol.
== END ==
PROVIDERS: PCP Family Medicine; Visit Provider Obstetrics & Gynecology
DX: Z3A.08 8 weeks gestation of pregnancy (principal); O20.9 Hemorrhage in early pregnancy, unspecified
CPT/HCPCS: 76817

== ENCOUNTER 2023-08-24 02:50 | Observation (INO) | payer OTHER, SELFPAY ==
[2023-08-24] VITALS (28 sets, daily range): BP systolic 105–147; BP diastolic 41–80; PULSE 54–96; RESP 16–20; TEMP 36.4–37.1; O2SAT 94–100; BMI 27.3
--- NOTE | 2023-08-24 02:58 | HMH.EDGENADL ---
Discharge Plan Disposition Patient Disposition: Admitted Condition: Fair Prescriptions Prescriptions: No Action [id number] 27 mg iron- 800 mcg-235 mg Capsule 1 cap PO DAILY Referrals Follow up/Referrals: Provider,Referral, [Primary Care Provider] - See instructions Clinical Impressions Clinical Impression: Miscarriage, Vaginal bleeding Discharge ED Provider: Joesph Adams General Adult HPI General Chief complaint: Vaginal Bleeding Stated complaint: Bleeding. Time Seen by Provider: 08/24/23 02:53 History of Present Illness HPI narrative: This otherwise healthy 28-year-old female presents to the emergency department with vaginal bleeding. Patient is G6, P3 and currently going through her third miscarriage. Patient states she was noted to have intrauterine at around 6 weeks, however last week she did not feel well and had repeat OB appointment where they identified a 6-week, 4-day gestational age fetus without cardiac activity. Review of the OB note demonstrates they did not administer Cytotec and pursued expectant management. Transvaginal ultrasound that was performed on 08/14/2023 was also reviewed and demonstrated intrauterine without cardiac activity. Patient started having spotting a few days ago but bleeding significantly increased in the last 24 hours. She is soaking through a pad every hour and passing clots. Patient syncopal episode which prompted emergency department evaluation. She states she was taking her 1-year-old back to their crib when she had blurry vision and syncopized. She woke up staring at the ceiling. Unclear how long she was unconscious for, family believes it was a few minutes. Patient states she has never had to have RhoGAM in the past but does not know her blood type. She states she took ibuprofen around 11 PM without significant improvement of her cramping pain. She is also having nausea. Related Data Home Medications Medication Instructions Recorded Confirmed vit 168-iron 27 mg-folic 1 cap PO DAILY Supplement 03/02/23 08/15/23 acid 800 mcg-omega3 235 mg capsule Allergies Allergy/AdvReac Type Severity Reaction Status Date / Time No Known Allergies Allergy Verified 08/15/23 08:29 [facility] Disclaimer: The information contained in this section may have been updated after the patient was seen, as this information can be updated by other users. Medical History Anxiety Generalized anxiety disorder History of miscarriage, currently Positive test Spontaneous miscarriage Vaginal bleeding affecting early Surgical History H/O cardiac radiofrequency ablation Hx of laparoscopy Family History Other No significant family history Social History Smoking Status: Never smoker second hand exposure: No alcohol intake: never substance use type: denies use current occupational status: employed Travel in the last 8 weeks: None adopted: No caregiver/support person: Yes (for her kids) foster care: No household members: spouse and children housing: house lives independently: Yes marital status: number of children: 3 number of grandchildren: 0 education level: high school service: No snf: No Hx Recent Travel: No sexually active: Yes caffeine: Yes physical activity: none romi/sabianism: Orthodox special romi needs: No working smoke detector in home: Yes fire extinguisher in home: Yes carbon monox detector in home: Yes firearms in home: Yes firearms unloaded and locked: Yes do you feel safe at home: Yes victim of physical abuse: No victim of emotional abuse: No victim of sexual abuse: No
--- NOTE | 2023-08-24 03:09 | ECG_ITS ---
APPROVED REPORT Exam: Resting ECG HR:78 bpm ECG Measurements Heart Rate 78 AXES IN 117 P 44 QRSd 90 QRS 60 QT 362 T 17 QTc 395 Conclusion SINUS RHYTHM WITH SHORT IN INTERVAL BORDERLINE ECG UNCONFIRMED REPORT Electronically signed by : Adam Owusu MD 08/24/2023 17:17:49
[2023-08-24 03:15] LABS: Basophils # 0.1 K/mm3 (0-0.2); Basophils % 0.8 % (0.1-2.0); Eosinophils # 0.2 K/mm3 (0.0-0.4); Eosinophils % 1.6 % (0.1-12.0); Hematocrit 34.4 % (37.0-47.0); Hemoglobin 11.7 g/dL (12.2-16.2); Lymphocytes # 3.5 K/mm3 (0.7-4.5); Lymphocytes % 30.8 % (10-50); Mean Corpuscular HGB Conc 33.9 g/dL (31.8-35.4); Mean Corpuscular Hemoglobin 29.1 pg (27.0-31.2); Mean Corpuscular Volume 85.7 fl (81-99); Monocytes # 0.6 K/mm3 (0.1-1.0); Monocytes % 4.9 % (1.7-9.3); Neutrophils # 7.1 K/mm3 (1.8-7.8); Platelet Count 309 K/mm3 (142-424); Red Blood Count 4.02 M/mm3 (4.20-5.40); Red Cell Distribution Width 12.9 % (11.5-17.5); White Blood Count 11.4 K/mm3 (4.8-10.8)
[2023-08-24 03:23] LABS: Chloride 104 mmol/L (98-107); Potassium 3.6 mmoL/L (3.5-5.1); Sodium 137 mmol/L (136-145)
[2023-08-24 03:25] LABS: Blood Urea Nitrogen 15 mg/dl (7-17); Creatinine Clearance Estimated 142 mL/min (50-200); Estimated Glomerular Filt Rate 117 ml/min (>60); GFR (African American) 142 ML/MIN (>60)
[2023-08-24 03:26] LABS: Alanine Aminotransferase 17 U/L (12-78); Albumin Level 3.9 g/dl (3.5-5.0); Albumin/Globulin Ratio 1.5 (1.1-1.8); Alkaline Phosphatase 74 U/L (38-126); Anion Gap 12.6 mEq/L (5-15); Aspartate Amino Transferase 17 U/L (14-36); Bilirubin,Total 0.3 mg/dl (0.2-1.3); Carbon Dioxide 24 mmol/L (22.0-30.0); Globulin 2.6 g/dL (1.3-3.2); Total Protein,Serum 6.5 g/dl (6.3-8.2)
[2023-08-24 03:27] LABS: Calcium 8.5 mg/dl (8.4-10.2); Glucose 104 mg/dl (74-100)
[2023-08-24 03:43] LABS: HCG,Quantitative 5775 mIU/ml (0-5.42)
--- NOTE | 2023-08-24 03:43 | PC.NURSE ---
Paged OB Dr Giordano about consult for pt for Dr Adams. CR
--- NOTE | 2023-08-24 03:45 | PC.NURSE ---
Dr Garcia returned call back. CR
[2023-08-24 03:49] LABS: INR 1.65 (0.9-1.1); Prothrombin Time 17.2 seconds (10.1-12.5)
[2023-08-24 03:57] LABS: Activated Partial Thrombo Time 18.6 seconds (22.8-30.6)
--- NOTE | 2023-08-24 04:08 | PC.NURSE ---
OBSERVATION ADMISSION TO [address] BENTLEY WITH DX OF MISCARRIAGE.
--- NOTE | 2023-08-24 05:12 | PC.NURSE ---
Report recieved from [facility] ER nurse, Jeffrey brought Pt up to the floor via wheelchair, pt is very pale in apperance and would like to go to the restroom, once in restroom pt is very weak on feet, wheelchair moved in bathroom to help pt get back to bed, pt assissted to bed via wheelchair. Datascope applied, VSS. rn at bedside x2. Bleeding noted to be minimal. pt complains of feeling just overall not well. 20 gauge patent iv saline locked to right AC. lungs clear throughout. No swelling noted. Bowel sounds active in all quandrants. pt is alert and orientated and can answer questions. 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 pt educated and reassured, no further questions.
--- NOTE | 2023-08-24 08:11 | PC.NURSE ---
Spoke with DR. cox on patients status, vitals and labs. orders for repeat cbc at 1000 and md will more than likely d/c today. r/v all orders
--- NOTE | 2023-08-24 08:19 | US_ITS ---
PROCEDURE: US OB <= 14 WEEKS FETUS CLINICAL INDICATION: miscarriage- transvaginal COMPARISON: No exams were available for comparison FINDINGS: Transabdominal sonographic images of the pelvis were obtained. UTERUS: 10.8 cm x 6.0 cmx 5.4 cm with a combined endometrial thickness of 20.5mm. Within the cervix there appears to be retained products of conception measuring 3.5 cm x 2.4 cm. Within the endometrial cavity there appears to be retained clot or possibly products of conception. LEFT OVARY: 3.4 cmx1.6 cmx1.3cm with a volume of 3.6ml. RIGHT OVARY: 2.6 cmx 1.9 cmx2.3 cm with a volume of 5.8ml. There are multiple small peripheral follicles. Both ovaries are seen and appear normal. Doppler flow to both ovaries are seen. There is no fluid in the cul-de-sac. IMPRESSION: 1. Retained products of conception in the cervix measuring 3.5 cm x 2.4 cm. 2. The endometrium is thickened at 20 mm consistent with either retained products or clot. 3. Both ovaries are seen and appear normal. 4. No fluid in the cul-de-sac. Dictated by: Edgardo Alarcon MD 08/25/2023 07:59 Edgardo Alarcon MD in OV 08/25/2023 07:59
--- NOTE | 2023-08-24 08:58 | PC.NURSE ---
Patient off unit with radiology at this time.
--- NOTE | 2023-08-24 09:35 | PC.NURSE ---
Spoke with Dr. cox- reports she will be up to talk with patient.
--- NOTE | 2023-08-24 10:25 | PC.NURSE ---
Dr cox at bedside. patient going to talk with about d/c.
[2023-08-24 10:34] LABS: Basophils # 0.1 K/mm3 (0-0.2); Basophils % 0.6 % (0.1-2.0); Eosinophils % 0.5 % (0.1-12.0); Hematocrit 32.2 % (37.0-47.0); Hemoglobin 10.7 g/dL (12.2-16.2); Lymphocytes # 2.2 K/mm3 (0.7-4.5); Lymphocytes % 26.2 % (10-50); Mean Corpuscular HGB Conc 33.3 g/dL (31.8-35.4); Mean Corpuscular Hemoglobin 29.6 pg (27.0-31.2); Mean Corpuscular Volume 88.7 fl (81-99); Mean Platelet Volume 7.7 fl (7.4-10.4); Monocytes # 0.5 K/mm3 (0.1-1.0); Monocytes % 5.6 % (1.7-9.3); Neutrophils # 5.5 K/mm3 (1.8-7.8); Neutrophils % 67.1 % (37.0-80.0); Platelet Count 285 K/mm3 (142-424); Red Blood Count 3.63 M/mm3 (4.20-5.40); White Blood Count 8.2 K/mm3 (4.8-10.8)
[2023-08-24 11:00] LABS: HCG,Quantitative 3854 mIU/ml (0-5.42)
--- NOTE | 2023-08-24 11:54 | PC.NURSE ---
Pt off floor with preop at this time.
--- NOTE | 2023-08-24 12:10 | EXP.ANES.CKL ---
[facility] Disclaimer: The information contained in this section may have been updated after the patient was seen, as this information can be updated by other users. Medical History Anxiety Generalized anxiety disorder History of miscarriage, currently Positive test Spontaneous miscarriage Vaginal bleeding affecting early Surgical History H/O cardiac radiofrequency ablation Hx of laparoscopy Family History Other No significant family history Social History (Updated 08/24/23 @ 05:06 by Lady Hood RN) Smoking Status: Never smoker second hand exposure: No alcohol intake: never substance use type: denies use current occupational status: employed Travel in the last 8 weeks: None adopted: No caregiver/support person: Yes (for her kids) foster care: No household members: spouse and children housing: house lives independently: Yes marital status: number of children: 3 number of grandchildren: 0 education level: high school service: No care home: No Hx Recent Travel: No sexually active: Yes caffeine: Yes physical activity: none romi/catholic: Presybeterian special romi needs: No working smoke detector in home: Yes fire extinguisher in home: Yes carbon monox detector in home: Yes firearms in home: Yes firearms unloaded and locked: Yes do you feel safe at home: Yes victim of physical abuse: No victim of emotional abuse: No victim of sexual abuse: No would you like helpful sources: No [facility] Anesthesia Checklist Patient Identification Patient Identification: Arm Band Structural Data Admitted From: Inpatient Planned Operative Procedure/s: D&C Consent for Planned Operative Procedure(s) Verified: Yes Verified Documents: Surgical Consent and History and Physical NPO Status Verified Time NPO: 00:00 Additional verifications Anesthesia Reactions: No Airway Assessment Mallampati Score:: Class II C-Spine Mobility Assessed: Yes TMJ Mobility Assessed: Yes Dentition: Good Dentition Neurological Assessment Level of Consciousness: Awake and Alert Anesthesia Plan Anesthesia Risk discussed: Yes Anesthesia Plan: Verified ASA Class: I Anesthesia Type: General
--- NOTE | 2023-08-24 12:34 | EXP.HP ---
History of Present Illness *Admission Date: 08/24/23 *Reason for visit:: Abnormal uterine bleeding, spontaneous *History of present illness: Mrs Esmer Thompson is a 28 yo , at 10w2d by LMP, who presented to [facility] ED for spontaneous miscarriage with heavy bleeding and associated lightheadedness, near syncope. Pelvic ultrasound 07/25 demonstrated IUP measuring 6w0d with FHR 89 bpm. Follow-up pelvic ultrasound 08/14 demonstrated IUP at 6w4d with no heartbeat detected. Beta hcg quant 07/18 was 6602. On 08/24 beta hcg quant was 5775. Repeat beta quant at 1000 this morning was 3854. Hemoglobin at 0305 was 11.7. Repeat Hgb at 1010 was 10.7. She admits to feeling weak. Reports headache. ABO RH: O positive. [facility] Disclaimer: The information contained in this section may have been updated after the patient was seen, as this information can be updated by other users. Medical History (Updated 08/24/23 @ 12:47 by Tigist Barrera DO) Acute blood loss anemia Anxiety Generalized anxiety disorder History of miscarriage, currently Positive test Spontaneous miscarriage Vaginal bleeding affecting early Surgical History H/O cardiac radiofrequency ablation Hx of laparoscopy Family History Other No significant family history Social History Smoking Status: Never smoker second hand exposure: No alcohol intake: never substance use type: denies use current occupational status: employed Travel in the last 8 weeks: None adopted: No caregiver/support person: Yes (for her kids) foster care: No household members: spouse and children housing: house lives independently: Yes marital status: number of children: 3 number of grandchildren: 0 education level: high school service: No fdc: No Hx Recent Travel: No sexually active: Yes caffeine: Yes physical activity: none romi/restoration: Baptism special romi needs: No working smoke detector in home: Yes fire extinguisher in home: Yes carbon monox detector in home: Yes firearms in home: Yes firearms unloaded and locked: Yes do you feel safe at home: Yes victim of physical abuse: No victim of emotional abuse: No victim of sexual abuse: No would you like helpful sources: No Review of Systems Review of Systems Review of systems:: pertinent systems reviewed and negative unless documented below Constitutional Constitutional: Reports headache(s) and Reports weakness ENT Ears, Nose, Mouth, and Throat: Reports dizziness and Reports headache(s) *Neurologic Neurologic: Reports dizziness, Reports headache(s) and Reports weakness Meds Home Medications and Allergies Home Medications Medication Instructions Recorded Confirmed Type vit 168-iron 27 mg-folic 1 cap PO DAILY Supplement 03/02/23 08/24/23 History acid 800 mcg-omega3 235 mg capsule New Prescriptions to Start Prescriptions: Allergies Allergy/AdvReac Type Severity Reaction Status Date / Time No Known Allergies Allergy Verified 08/15/23 08:29 Exam Data for Last 24 hours Vital signs and Labs for Last 24 Hours: Temp Pulse Resp BP Pulse Ox O2 Del Method 97.6 F 54 L 16 108/49 L 97 Room Air 08/24/23 05:06 08/24/23 07:00 08/24/23 07:00 08/24/23 07:00 08/24/23 08:15 08/24/23 08:33 Laboratory Results - last 24 hr 08/24/23 02:50: PT 17.2 H, INR 1.65 H, APTT 18.6 L 08/24/23 03:05: WBC 11.4 H, RBC 4.02 L, Hgb 11.7 L, Hct 34.4 L, MCV 85.7, MCH 29.1, MCHC 33.9, RDW 12.9, Plt Count 309, MPV 8.0, Neut % (Auto) 62.0, Lymph % (Auto) 30.8, [place] % (Auto) 4.9, Eos % (Auto) 1.6, Baso % (Auto) 0.8, Neut # (Auto) 7.1, Lymph # (Auto) 3.5, [place] # (Auto) 0.6, Eos # (Auto) 0.2, Baso # (Auto) 0.1, Sodium 137, Potassium 3.6, Chlori
--- NOTE | 2023-08-24 13:16 | P.PNANES_ITS ---
[facility] Anesthesia Record Part I Anesthesia Record I Intake, IV Amount: 500 Hydration: Adequate Estimated blood loss (mL): 50 Urine output (mL): 0 Blood Products used (#): none Blood Pressure: 108/51 SaO2: 94 Pulse Rate: 70 Airway Patency: Patent Respiratory Rate: 16 Temperature: 97.8 F Patient is:: Drowsy and Stable Stable to PACU at:: 13:15
--- NOTE | 2023-08-24 13:31 | EXP.OP.NOTE ---
Date of procedure: 08/24/23 Pre-op Diagnosis:: 1. Incomplete spontaneous 2. ABO RH: O positive Post-op Diagnosis:: 1. Incomplete spontaneous 2. ABO RH: O positive Procedure performed:: Suction dilation and curettage Surgeon:: Tigist Barrera DO Email Developer(s):: N/a MANUFACTURING SPECIALIST:: Will Potts Anesthesia: GETA Estimated blood loss (mL): 50 Clinical Note:: Mrs Esmer Thompson is a 28 yo , at 10w2d by LMP, who presented to [facility] ED for spontaneous miscarriage with heavy bleeding and associated lightheadedness, near syncope. Pelvic ultrasound 07/25 demonstrated IUP measuring 6w0d with FHR 89 bpm. Follow-up pelvic ultrasound 08/14 demonstrated IUP at 6w4d with no heartbeat detected. Beta hcg quant 07/18 was 6602. On 08/24 beta hcg quant was 5775. Repeat beta quant at 1000 this morning was 3854. Hemoglobin at 0305 was 11.7. Repeat Hgb at 1010 was 10.7. She admits to feeling weak. Reports headache. ABO RH: O positive. Operative findings:: 1. On bimanual exam, portion of products of conception partially expelled from cervical os. Uterus, normal size and shape, midposition. No adnexal massed palpated Operative note:: Risks, benefits and alternatives were discussed with the patient. Risks include but are not limited to bleeding, infection, uterine perforation and VTE. Patient voiced understanding and agreed to proceed. She was given Doxycycline 200 mg PO prior to surgery. She was wheeled back to the operating room and placed under general anesthesia without difficulty. She was placed in dorsal lithotomy position and prepped and draped in the normal sterile fashion. Straight catheter was used to drain the bladder. A bimanual exam was performed. A weighted Auvard was placed in the vaginal vault. Ringed forcep was placed on anterior lip of the cervix. Uterus sounded to 9. Cervical os was already dilated. An 8 mm curved scottish suction curettage was advanced into the uterine cavity without difficulty and was used to suction contents of the uterus. Following removal of the products of conception, a medium sized sharp curette was advanced into the uterine cavity and was used to scrape the uterine danielle until a gritty texture was noted. At this time, the suction curette was advanced one more time to suction any remaining products of conception and blood. Instruments were removed from the vagina. Tenaculum site was noted to be hemostatic. Patient was awaken from anesthesia without difficulty. Products of conception will be sent to pathology. She was transported to recovery room in stable condition. Condition: stable Disposition: floor Specimens:: 1. Products of conception Complications:: None
--- NOTE | 2023-08-24 13:50 | PC.NURSE ---
Patient arrived on unit at this time from post op. Pt drowsy in bed. iv infusing without difficulty. No pain reported at this time. lungs cta and bowel sounds active x4. pulses 2+ and cap refil <3 seconds. poc explained at this time. family at bedside as well
--- NOTE | 2023-08-24 16:33 | PC.NURSE ---
dr cox at bedside. report given
--- NOTE | 2023-08-24 16:50 | PC.NURSE ---
Reassessment done at this time. No changes reported. A/ox4. Lungs cta and bowel sounds active x4. ABd tender at this time. Small vaginal bleeding noted. iv saline locked. no edema noted. pt reports feeling better, but not her self yet. pulses 2+. call light within reach. Pt going to shower soon. No needs.
--- NOTE | 2023-08-24 17:08 | PC.NURSE ---
Patient getting up to shower at this time- instructed patient to call out if she needed RN. She v/u
[2023-08-25 04:23] VITALS: O2SAT 97
[2023-08-25 04:26] VITALS: BP 101/57; PULSE 73; RESP 18; TEMP 36.7; O2SAT 100
[2023-08-25 08:00] VITALS: BP 111/52; PULSE 78; RESP 18; TEMP 36.8; O2SAT 99
--- NOTE | 2023-08-25 08:23 | EXP.DC.SUM ---
General Admission date:: 08/24/23 Discharge date: 08/25/23 HPI HPI HPI: POD # 1 s/p Suction D&C Esmer is feeling better this morning. Pain is controlled. Light bleeding. Voiding without difficulty and passing flatus. Tolerating regular diet. No fever/chills, chest pain or shortness of breath. No headaches, dizziness/lightheadedness. Ambulating well ad amparo. Hospital Course Hospital Course Hospital Course: Mrs Esmer Thompson is a 28 yo , at 10w2d by LMP, who presented to [facility] ED for spontaneous miscarriage with heavy bleeding and associated lightheadedness, near syncope. Pelvic ultrasound 07/25 demonstrated IUP measuring 6w0d with FHR 89 bpm. Follow-up pelvic ultrasound 08/14 demonstrated IUP at 6w4d with no heartbeat detected. Beta hcg quant 07/18 was 6602. On 08/24 beta hcg quant was 5775. Repeat beta quant at 1000 this morning was 3854. Hemoglobin at 0305 was 11.7. Repeat Hgb at 1010 was 10.7. She admits to feeling weak. Reports headache. ABO RH: O positive. Decision was made to proceed with suction D&C. She received Doxycycline 200 mg PO prior to surgery. She underwent suction D&C on 08/24/23. She did well postoperatively. Pain controlled. Light bleeding. She received Venofer 200 mg IV x 1 dose postoperatively. Voiding without difficulty and passing flatus. Tolerating regular diet. No fever/chills, chest pain or shortness of breath. No headaches, dizziness/lightheadedness. Vital signs stable, afebrile. Heart regular rate and rhythm. Lungs clear to auscultation. Abdomen soft, nontender. Normal hospital course. Exam Data for Last 24 hours Vital signs and Labs for Last 24 Hours: Temp Pulse Resp BP Pulse Ox O2 Del Method 98.0 F 73 18 101/57 L 100 Room Air 08/25/23 04:26 08/25/23 04:26 08/25/23 04:26 08/25/23 04:26 08/25/23 04:08/25/23 05:43 Laboratory Results - last 24 hr 08/24/23 10:10: WBC 8.2 D, RBC 3.63 L, Hgb 10.7 L, Hct 32.2 L, MCV 88.7, MCH 29.6, MCHC 33.3, RDW 13.0, Plt Count 285, MPV 7.7, Neut % (Auto) 67.1, Lymph % (Auto) 26.2, [place] % (Auto) 5.6, Eos % (Auto) 0.5, Baso % (Auto) 0.6, Neut # (Auto) 5.5, Lymph # (Auto) 2.2, [place] # (Auto) 0.5, Eos # (Auto) 0.0, Baso # (Auto) 0.1, HCG, Quant 3854 H I & O for Last 24 hours: Intake & Output 08/22/23 08/23/23 08/24/23 08/25/23 23:59 23:59 23:59 23:59 Intake Total 500 / 500 Output Total 300 / 300 1 / Balance 200 / 200 -1 / -1 Weight 144 lb 15.968 oz Constitutional Constitutional: no acute distress and cooperative *Routine HEENT Exam Head: Present normocephalic and atraumatic Eye: Absent conjunctivae pink ENT: Present mucous membranes moist *Routine Neck Exam Neck: Present full ROM *Routine Respiratory Exam Respiratory: Present CTA bilaterally and normal respiratory effort *Routine Cardiovascular Exam Cardiovascular: Present RRR *Routine Abdominal Exam Abdominal: Present soft and normoactive bowel sounds; Absent tenderness or distended *Routine Rectal Exam Patient deferred: visual exam *Routine Exam Patient deferred: external exam *Routine Extremities Exam Extremities: Present full ROM; Absent edema or calf tenderness *Routine Neurological Exam Neurological: Present alert, oriented X3 and moving all extremities Routine Psychiatric Exam Psychiatric: Present normal affect and cooperative Results Data Completed and Pending Labs on day of discharge: Labs from last 24 hours 08/24/23 10:10 WBC 8.2 D RBC 3.63 L Hgb 10.7 L Hct 32.2 L MCV 88.7 MCH 29.6 MCHC 33.3 RDW 13.0 Plt Count 285 MPV 7.7 Neut % (Auto) 67.1 Lymph % (Auto) 26.2 [place] % (Auto) 5.6 Eos % (Auto) 0.5 Baso % (Auto) 0.6 Neut # (Auto) 5.5 Lymph # (Auto) 2.2 [place] # (Auto) 0.5 Eos # (Auto) 0.0 Baso # (Auto) 0.1 HCG, Quant 3854 H DS: Diagnosis Discharge Diagnosis (1) S/P D&C (status post dilation and curettage): Status: Acute Code(s): Z98.890 - Other specified postprocedural states (2) Incomplete miscar
--- NOTE | 2023-08-25 13:42 | P.PNANES_ITS ---
[facility] Anesthesia Record Part II Anesthesia Record Part II Discharge Time: 13:35 Destination: Obstetric PACU nurse assessment reviewed?: Yes Patient Condition:: Good Anesthesia Complications:: None Swallowing reflex intact?: Yes Airway Patency: Patent Cyanosis?: No Blood Pressure: 118/80 SaO2: 98 Respiratory Rate: 18 Pulse Rate: 71 Temperature: 98.2 F Mental Status: Alert & Oriented Pain level:: 0 Nausea and/or vomitting:: None Intake, IV Amount: 0 Hydration: Adequate
[2023-08-25 13:43] VITALS: BP 118/80; PULSE 71; RESP 18; TEMP 36.8; O2SAT 98
== END 2023-08-25 08:40 | disposition home or self-care (01) ==
LOC: ER 03:51 → OB 05:16
PROVIDERS: Admitting Provider Obstetrics & Gynecology; Emergency Provider Emergency Medicine; Visit Provider Obstetrics & Gynecology
PROC: (CPT 58120; principal; 2023-08-24 12:45)
DX: O03.4 Incomplete spontaneous abortion without complication (principal); D62 Acute posthemorrhagic anemia
CPT/HCPCS: 59812; 36415; 76801; 80053; 84702; 85025; 85610; 85730; 86850; 93005; 99285; G0378; J0131; J1756; J2405

== ENCOUNTER 2023-08-28 13:16 | Emergency (ER) | payer OTHER, SELFPAY ==
[2023-08-28 13:17] VITALS: BP 162/85; PULSE 73; RESP 16; TEMP 36.7; O2SAT 99; BMI 27.3
--- NOTE | 2023-08-28 13:23 | XR_ITS ---
FINAL REPORT TECHNIQUE: Single view chest CLINICAL HISTORY: SOA lightheaded FINDINGS: A single view of the chest was obtained. The heart and mediastinum are within normal limits. The lungs are clear. There is no pneumothorax. Osseous structures demonstrate mild rightward curvature of the thoracic spine. IMPRESSION: No acute cardiopulmonary process. Reviewed, Interpreted and Dictated by Julius Brewer III, MD Transcribed by Nicolasa Atkinson Authenticated and [facility]
--- NOTE | 2023-08-28 13:23 | ECG_ITS ---
APPROVED REPORT Exam: Resting ECG HR:68 bpm ECG Measurements Heart Rate 68 AXES MA 113 P 3 QRSd 92 QRS 48 QT 370 T 48 QTc 388 Conclusion SINUS RHYTHM WITH SHORT MA INTERVAL BORDERLINE ECG UNCONFIRMED REPORT Electronically signed by : Adam Owusu MD 08/28/2023 17:05:13
--- NOTE | 2023-08-28 13:24 | PC.NURSE ---
DR GARNETT AT BEDSIDE
--- NOTE | 2023-08-28 13:33 | PC.NURSE ---
XR AT BEDSIDE
[2023-08-28 13:43] LABS: Chloride 103 mmol/L (98-107); Sodium 140 mmol/L (136-145)
[2023-08-28 13:44] LABS: Potassium 3.6 mmoL/L (3.5-5.1)
--- NOTE | 2023-08-28 13:45 | HMH.EDGENADL ---
Discharge Plan Disposition Patient Disposition: Home, Self-Care Chief Complaint: Weakness Prescriptions Prescriptions: No Action ibuprofen 800 mg tablet 800 mg PO Q8H PRN (Reason: pain) Qty: 20 0RF [id number] 27 mg iron- 800 mcg-235 mg Capsule 1 cap PO DAILY Referrals Follow up/Referrals: Gurpreet Gamez MD [Primary Care Provider] - See instructions Activity Restrictions/Add. Instructions Additional Instructions/Restrictions: Call your family doctor to establish care for this visit to the emergency department and schedule follow-up within 48 hours to ensure improvement. If you have any worsening of your condition or any other concerning signs or symptoms, return to the emergency department or your primary care doctor for further evaluation. Clinical Impressions Clinical Impression: Symptomatic anemia Discharge ED Provider: Chinmay Larsen General Adult HPI General Chief complaint: Weakness Stated complaint: weakness Time Seen by Provider: 08/28/23 13:18 Mode of Arrival: Ambulatory Source of Information: Patient Limitations: No Limitations Description of Symptoms (Recalled from ER Triage Doc. by RN): PT C/O FATIGUE, SHORTNESS OF BREATH WITH EXERTION, INCREASED HR, DIZZINESS AND NAUSEA. PT WITH RECENT D&C. DENIES PAIN OR VAGINAL BLEEDING AT THIS TIME History of Present Illness HPI narrative: 28-year-old female with a history of recent miscarriage status post D&C 4 days prior to arrival presenting with tachycardia, exertional shortness of breath, lightheadedness, near syncope. After D&C, patient states that she has felt lightheaded. Received iron infusion and discharged 3 days prior to arrival. Has not had vaginal discharge or bleeding for about 2 days at this point. No fevers or chills, vomiting, abdominal pain, dysuria, hematuria, chest pain, cough. She states that any exertion causes her to feel exhausted and recently had syncopal episode after laying her down to sleep. Related Data Home Medications Medication Instructions Recorded Confirmed vit 168-iron 27 mg-folic 1 cap PO DAILY Supplement 03/02/23 08/24/23 acid 800 mcg-omega3 235 mg capsule Previous Rx's Medication Instructions Recorded ibuprofen 800 mg tablet 800 mg PO Q8H PRN pain #20 tabs 08/25/23 Allergies Allergy/AdvReac Type Severity Reaction Status Date / Time No Known Allergies Allergy Verified 08/15/23 08:29 [facility] Disclaimer: The information contained in this section may have been updated after the patient was seen, as this information can be updated by other users. Medical History (Updated 08/28/23 @ 15:35 by Chinmay Larsen MD) Acute blood loss anemia Anxiety Generalized anxiety disorder History of miscarriage, currently Incomplete miscarriage Positive test Spontaneous miscarriage Vaginal bleeding affecting early Surgical History (Updated 08/25/23 @ 08:31 by Tigist Barrera DO) H/O cardiac radiofrequency ablation Hx of laparoscopy S/P D&C (status post dilation and curettage) Family History Other No significant family history Social History Smoking Status: Never smoker second hand exposure: No alcohol intake: never substance use type: denies use current occupational status: employed Travel in the last 8 weeks: None adopted: No caregiver/support person: Yes (for her kids) foster care: No household members: spouse and children housing: house lives independently: Yes marital status: number of children: 3 number of grandchildren: 0 education level: high school service: No [place] [facility] [place]: No Hx Recent Travel: No sexually active: Yes caffeine: Yes physical activity: none romi/nondenominational: Spiritism special romi needs: No working smoke detector in home: Yes milan
[2023-08-28 13:46] LABS: Alanine Aminotransferase 19 U/L (12-78); Albumin Level 4.5 g/dl (3.5-5.0); Albumin/Globulin Ratio 1.3 (1.1-1.8); Alkaline Phosphatase 74 U/L (38-126); Anion Gap 11.6 mEq/L (5-15); Aspartate Amino Transferase 24 U/L (14-36); Bilirubin,Total 0.2 mg/dl (0.2-1.3); Blood Urea Nitrogen 8 mg/dl (7-17); Calcium 9.3 mg/dl (8.4-10.2); Carbon Dioxide 29 mmol/L (22.0-30.0); Creatinine Clearance Estimated 171 mL/min (50-200); Estimated Glomerular Filt Rate 145 ml/min (>60); GFR (African American) 175 ML/MIN (>60); Globulin 3.6 g/dL (1.3-3.2); Glucose 100 mg/dl (74-100); Total Protein,Serum 8.1 g/dl (6.3-8.2)
[2023-08-28 13:52] LABS: Basophils # 0.1 K/mm3 (0-0.2); Basophils % 1.2 % (0.1-2.0); Eosinophils # 0.1 K/mm3 (0.0-0.4); Eosinophils % 1.4 % (0.1-12.0); Hematocrit 34.6 % (37.0-47.0); Hemoglobin 11.4 g/dL (12.2-16.2); Lymphocytes # 2.6 K/mm3 (0.7-4.5); Lymphocytes % 36.7 % (10-50); Mean Corpuscular HGB Conc 32.8 g/dL (31.8-35.4); Mean Corpuscular Hemoglobin 29.2 pg (27.0-31.2); Mean Corpuscular Volume 88.9 fl (81-99); Mean Platelet Volume 7.8 fl (7.4-10.4); Monocytes # 0.3 K/mm3 (0.1-1.0); Monocytes % 4.2 % (1.7-9.3); Neutrophils % 56.4 % (37.0-80.0); Platelet Count 394 K/mm3 (142-424); Red Blood Count 3.89 M/mm3 (4.20-5.40); Red Cell Distribution Width 13.8 % (11.5-17.5); White Blood Count 7.2 K/mm3 (4.8-10.8)
[2023-08-28 14:00] VITALS: BP 126/75; PULSE 72; RESP 14; O2SAT 98
[2023-08-28 14:30] VITALS: BP 110/70; PULSE 74; RESP 18; O2SAT 100
[2023-08-28 14:38] LABS: Activated Partial Thrombo Time 20.5 seconds (22.8-30.6); INR 0.95 (0.9-1.1); Prothrombin Time 10.3 seconds (10.1-12.5)
--- NOTE | 2023-08-28 14:39 | PC.NURSE ---
DR GARNETT AT BEDSIDE TO DISCUSS POC WITH PT
[2023-08-28 14:48] LABS: Microscopic, Urine URINE MICROSCOPIC (MICROSCOPIC)
[2023-08-28 14:52] LABS: Appearance,Urine CLEAR (Clear); Bilirubin,Urine Negative (Negative); Blood, Urine 1+ (Negative); Color,Urine YELLOW (Yellow); Glucose,Urine (UA) Negative (Negative); Ketones,Urine Negative (Negative); Leukocyte Esterase,Urine Negative (Negative); Nitrate,Urine Negative (Negative); PH,Urine 7.5 (5.0-8.5); Protein,Urine Negative (Negative); Urobilinogen,Urine 0.2 EU/dl (0.2)
[2023-08-28 14:56] LABS: HCG,Quantitative 532 mIU/ml (0-5.42)
[2023-08-28 14:59] VITALS: BP 122/69; BP 138/79; BP 140/83; PULSE 70; PULSE 72; PULSE 85
[2023-08-28 15:01] VITALS: BP 123/68; PULSE 74; RESP 18; O2SAT 99
[2023-08-28 15:07] LABS: Lactic Acid 0.7 mmol/L (0.7-2.1)
[2023-08-28 15:16] LABS: T4 (Thyroxine) 10.3 ug/dl (5.53-11.0); Thyroid Stimulating Hormone 1.35 uIU/mL (0.465-4.68)
--- NOTE | 2023-08-28 15:20 | PC.NURSE ---
DR GARNETT SPEAKING WITH DR MCQUEEN
[2023-08-28 15:31] LABS: RBC,Urine Occasional #/hpf (0-3); Squamous Epithelial Cell,Urine Occasional #/hpf (0-5)
[2023-08-28 15:50] VITALS: BP 137/79; PULSE 72; RESP 15; TEMP 36.8; O2SAT 97
== END 2023-08-28 15:50 | disposition home or self-care (01) ==
PROVIDERS: Emergency Provider Emergency Medicine; PCP Family Medicine
DX: D64.9 Anemia, unspecified (principal); R53.83 Other fatigue; R06.02 Shortness of breath; R42 Dizziness and giddiness; R11.0 Nausea; F41.1 Generalized anxiety disorder
CPT/HCPCS: 71045; 80053; 81001; 83605; 84436; 84443; 84702; 85025; 85610; 85730; 86850; 87040; 93005; 99285

== ENCOUNTER → 2023-11-03 09:02 | Outpatient (CLI) | payer OTHER, SELFPAY ==
[2023-11-03 11:53] LABS: Free Thyroxine Index 2.3 ug/dL (5.93-13.13); T4 (Thyroxine) 8.3 ug/dl (5.53-11.0); Triiodothryronine (T3) Uptake 28 % (23.5-40.5)
[2023-11-03 12:07] LABS: Thyroid Stimulating Hormone 1.46 uIU/mL (0.465-4.68)
[2023-11-03 20:04] LABS: HCG,Quantitative 816 mIU/ml (0-5.42)
== END ==
PROVIDERS: PCP Family Medicine; Visit Provider Obstetrics & Gynecology
DX: Z32.01 Encounter for pregnancy test, result positive (principal)
CPT/HCPCS: 84144; 84436; 84443; 84479; 84702

== ENCOUNTER → 2023-11-26 07:38 | Outpatient (CLI) | payer OTHER, SELFPAY ==
[2023-11-26 09:07] LABS: HCG,Quantitative 19287 mIU/ml (0-5.42)
== END ==
LOC: LAB 07:39
PROVIDERS: PCP Family Medicine; Visit Provider Obstetrics & Gynecology
DX: O03.9 Complete or unspecified spontaneous abortion without complication (principal)
CPT/HCPCS: 84702

== ENCOUNTER 2023-12-31 19:50 | Emergency (ER) | payer SELFPAY ==
--- NOTE | 2023-12-31 19:49 | ECG_ITS ---
APPROVED REPORT Exam: Resting ECG HR:87 bpm ECG Measurements Heart Rate 87 AXES ND 117 P 9 QRSd 101 QRS 55 QT 355 T 21 QTc 399 Conclusion SINUS RHYTHM WITH SHORT ND INTERVAL BORDERLINE ECG UNCONFIRMED REPORT Electronically signed by : Adam Owusu MD 01/01/2024 17:17:03
[2023-12-31 19:51] VITALS: BP 175/83; PULSE 91; RESP 16; TEMP 36.5; O2SAT 100; BMI 27.3
--- NOTE | 2023-12-31 19:51 | PC.NURSE ---
at bedside with US at this time.
--- NOTE | 2023-12-31 19:55 | XR_ITS ---
PROCEDURE INFORMATION: Exam: XR Chest Exam date and time: 12/31/2023 8:22 PM Age: 28 years old Clinical indication: Sternal or substernal pain; Prior surgery; Surgery date: <1 month; Surgery type: D&c 2 weeks ago; Additional info: Epigastric, sternal pain TECHNIQUE: Imaging protocol: Radiologic exam of the chest. Views: 1 view. COMPARISON: CT ANGIO CHEST 12/31/2023 8:19 PM FINDINGS: Lungs: Unremarkable. No consolidation. Pleural spaces: Unremarkable. No pleural effusion. No pneumothorax. Heart/Mediastinum: Unremarkable. No cardiomegaly. Bones/joints: Mild thoracic scoliosis. Bones are otherwise unremarkable. IMPRESSION: No acute findings.
--- NOTE | 2023-12-31 19:55 | CT_ITS ---
PROCEDURE INFORMATION: Exam: CT Abdomen And Pelvis With Contrast Exam date and time: 12/31/2023 8:19 PM Age: 28 years old Clinical indication: Abdominal pain; Epigastric; Prior surgery; Surgery date: <1 month; Surgery type: D&c 2 weeks ago; Additional info: D c 2 weeks ago, severe abd and epigastric pain TECHNIQUE: Imaging protocol: Computed tomography of the abdomen and pelvis with contrast. Radiation optimization: All CT scans at this facility use at least one of these dose optimization techniques: automated exposure control; mA and/or kV adjustment per patient size (includes targeted exams where dose is matched to clinical indication); or iterative reconstruction. Contrast material: ISOVUE; Contrast volume: 100 ml; Contrast route: IV; COMPARISON: CT ABDOMEN PELVIS W CON 07/23/2020 12:22 PM FINDINGS: Liver: Normal. No mass. Gallbladder and bile ducts: Normal. No calcified stones. No ductal dilation. Pancreas: Normal. No ductal dilation. Spleen: Normal. No splenomegaly. Adrenal glands: Normal. No mass. Kidneys and ureters: Normal. No hydronephrosis. Stomach and bowel: Unremarkable. No obstruction. No mucosal thickening. Appendix: The appendix is visualized and appears normal. Intraperitoneal space: Unremarkable. No free air. No significant fluid collection. Vasculature: Unremarkable. No abdominal aortic aneurysm. Lymph nodes: Unremarkable. No enlarged lymph nodes. Urinary bladder: Unremarkable as visualized. Reproductive: 5.6 cm simple appearing right ovarian cyst. Uterus and left ovary appear unremarkable. Bones/joints: Unremarkable. No acute fracture. Soft tissues: Unremarkable. IMPRESSION: 5.6 cm simple appearing right ovarian cyst. Ultrasound follow-up in 6-12 months is recommended (Reference: Alberto). Otherwise unremarkable study. References: Alberto et al. Management of Incidental Adnexal Findings on CT and MRI: A White Paper of the ACR Incidental Findings Committee, J Am Denilson Radiol. 2019;17(2):248-254.
--- NOTE | 2023-12-31 19:56 | CT_ITS ---
PROCEDURE INFORMATION: Exam: CTA Chest With Contrast Exam date and time: 12/31/2023 8:19 PM Age: 28 years old Clinical indication: Sternal or substernal pain and left-sided; Prior surgery; Surgery date: <1 month; Surgery type: D&c 2 weeks ago; Additional info: Lower sternal pain, severe TECHNIQUE: Imaging protocol: Computed tomographic angiography of the chest with contrast. Exam focused on the arteries. 3D rendering (Not supervised by radiologist): MIP and/or 3D reconstructed images were created by the technologist. Radiation optimization: All CT scans at this facility use at least one of these dose optimization techniques: automated exposure control; mA and/or kV adjustment per patient size (includes targeted exams where dose is matched to clinical indication); or iterative reconstruction. Contrast material: ISO 370; Contrast volume: 100 ml; Contrast route: INTRAVENOUS (IV); COMPARISON: CR XR CHEST PORTABLE 08/28/2023 1:48 PM FINDINGS: Pulmonary arteries: Normal. No pulmonary emboli. Aorta: Unremarkable. No aortic aneurysm. No aortic dissection. Lungs: Unremarkable. No consolidation. No masses. Pleural spaces: Unremarkable. No pneumothorax. No pleural effusion. Heart: Unremarkable. No cardiomegaly. No pericardial effusion. Lymph nodes: Unremarkable. No enlarged lymph nodes. Bones/joints: Mild thoracic scoliosis. No acute fracture. Soft tissues: Unremarkable. IMPRESSION: No acute findings.
[2023-12-31 19:59] VITALS: BP 145/89; PULSE 79; RESP 17; O2SAT 100
[2023-12-31] MEDS: MORPHINE 4MG/ML SYRINGE 4 MG IV (20:01)
[2023-12-31] MEDS: ACETAMINOPHEN 1,000MG/100ML VIAL 1000 MG IV (20:01)
[2023-12-31] MEDS: ONDANSETRON 4MG/2ML VIAL 4 MG IV (20:01)
[2023-12-31] MEDS: BELLADONNA ALKALOIDS 60 ML ML PO (20:01)
[2023-12-31 20:03] LABS: Basophils # 0.1 K/mm3 (0-0.2); Basophils % 1.5 % (0.1-2.0); Eosinophils # 0.2 K/mm3 (0.0-0.4); Eosinophils % 1.6 % (0.1-12.0); Hematocrit 40.5 % (37.0-47.0); Hemoglobin 13.7 g/dL (12.2-16.2); Lymphocytes # 4.2 K/mm3 (0.7-4.5); Lymphocytes % 42.9 % (10-50); Mean Corpuscular HGB Conc 33.8 g/dL (31.8-35.4); Mean Corpuscular Hemoglobin 28.8 pg (27.0-31.2); Mean Platelet Volume 7.9 fl (7.4-10.4); Monocytes # 0.4 K/mm3 (0.1-1.0); Monocytes % 4.4 % (1.7-9.3); Neutrophils # 4.8 K/mm3 (1.8-7.8); Neutrophils % 49.7 % (37.0-80.0); Platelet Count 329 K/mm3 (142-424); Red Blood Count 4.76 M/mm3 (4.20-5.40); Red Cell Distribution Width 15.8 % (11.5-17.5); White Blood Count 9.7 K/mm3 (4.8-10.8)
[2023-12-31 20:06] VITALS: PULSE 94
[2023-12-31 20:08] LABS: Chloride 103 mmol/L (98-107); Potassium 3.2 mmoL/L (3.5-5.1); Sodium 138 mmol/L (136-145)
--- NOTE | 2023-12-31 20:09 | ED_ITS ---
Discharge Plan Disposition Patient Disposition: Home, Self-Care Prescriptions Prescriptions: New ondansetron 4 mg tablet,disintegrating 4 mg PO Q8H PRN (Reason: nausea and vomiting) 4 Days Qty: 12 0RF No Action ibuprofen 800 mg tablet 800 mg PO Q8H PRN (Reason: pain) Qty: 20 0RF [id number] 27 mg iron- 800 mcg-235 mg Capsule 1 cap PO DAILY Referrals Follow up/Referrals: Provider,Referral, MD [Primary Care Provider] - See instructions Activity Restrictions/Add. Instructions Additional Instructions/Restrictions: At this time it was felt you are safe to be discharged home. If new or worsening symptoms please do not hesitate to return the emergency department. Please advance your diet slowly over the coming days from clear liquids to broth to solids. Please follow-up with Dr. Gamez later this week as discussed. Please take your medication as prescribed. Clinical Impressions Clinical Impression: Acute pancreatitis, Hypokalemia, Ovarian cyst Discharge ED Provider: Lopez Hyde General Chief Complaint: Chest Pain Stated Complaint: cp Time Seen by Provider: 12/31/23 19:55 Mode of Arrival: Ambulatory Source of Information: Patient Limitations: No Limitations Description of Symptoms (Recalled from ER Triage Doc. by RN): pt c/o midsternal chest tightness that began just prior to arrival History of Present Illness HPI narrative: Patient is a 28-year-old female with past medical history of D&C x 2, most recent a few weeks ago at [facility] due to miscarriage who presents emergency department for evaluation of epigastric pain. Onset was acute, just prior to arrival, severe in intensity, radiating between her breasts into her sternum. Abdominal pain is diffuse however includes worse epigastric. Due to severity she presents here for continued evaluation. There is associated shortness of breath when patient is in pain however no shortness of breath during pain-free intervals. No vomiting. No other acute complaints at this time. Related Data Home Medications Medication Instructions Recorded Confirmed vit 168-iron 27 mg-folic 1 cap PO DAILY Supplement 03/02/23 08/24/23 acid 800 mcg-omega3 235 mg capsule Previous Rx's Medication Instructions Recorded ibuprofen 800 mg tablet 800 mg PO Q8H PRN pain #20 tabs 08/25/23 ondansetron 4 mg disintegrating 4 mg PO Q8H PRN nausea and 12/31/23 tablet vomiting 4 days #12 tabs Allergies Allergy/AdvReac Type Severity Reaction Status Date / Time No Known Allergies Allergy Verified 08/15/23 08:29 [facility] Disclaimer: The information contained in this section may have been updated after the patient was seen, as this information can be updated by other users. Medical History (Updated 12/31/23 @ 21:18 by Lopez Hyde MD) Acute blood loss anemia Anxiety Generalized anxiety disorder History of miscarriage, currently Incomplete miscarriage Miscarriage Positive test Spontaneous miscarriage Vaginal bleeding affecting early Surgical History (Updated 08/29/23 @ 00:12 by Salas Heard) H/O cardiac radiofrequency ablation Hx of laparoscopy S/P D&C (status post dilation and curettage) Family History Other No significant family history Social History Smoking Status: Never smoker second hand exposure: No alcohol intake: never substance use type: denies use current occupational status: employed Travel in the last 8 weeks: None adopted: No caregiver/support person: Yes (for her kids) foster care: No household members: spouse and children housing: house lives independently: Yes marital status: number of children: 3 number of grandchildren: 0 education level: high school service: No senior care: No Hx Recent Travel: No sexually active: Yes caffeine: Yes physical activity: none romi/baptism: Spiritism special romi needs: No working smoke detector in home: Yes fire extinguisher in home: Yes carbon monox detector in home: Yes firearms in home: Yes firearms unloaded and locked: Yes do you feel safe at home: Yes victim of physical abuse: No victim of emotional abuse: No victim of sexual abuse: No would you like helpful sources: No ROS Obtained: Yes Systems reviewed as appropriate & no additional complaints except as documented Physical Exam General General appearance: alert and in distress Head Head exam: atraumatic and normocephalic Eye Eye exam: Present PERRL and EOMI ENT ENT exam: Present mucous membranes moist Neck Neck exam: Present normal inspection Chest Chest inspection: Present normal inspection and symmetric chest wall rise Respiratory Respiratory exam: Present normal lung sounds bilaterally; Absent respiratory distress Cardiovascular Cardiovascular exam: Present regular rate and normal rhythm Abdominal Exam Abdominal exam: Present soft, tenderness (Diffuse) and guarding (Voluntary) Extremities Exam Extremities exam: Present normal inspection Neurological Exam Neurological exam: Present alert Psychiatric Psychiatric exam: Present normal affect Skin Skin exam: Present warm and dry HEART Score HEART Score HEART Score assessment performed?: Yes History (anamnesis): Slightly suspicious ECG: Normal Age: <45 years Risk factors: No known risk factors Troponin: </= normal limit HEART Score: 0 Critical Care Critical Care Time Critical Care Time: No Medical Decision Making Sahil Inquiry Pt receiving controlled substance: No Vital Signs Vital Signs: 12/31/23 19:51 12/31/23 20:06 12/31/23 19:59 Temperature 97.7 F Temperature Source Oral Pulse Rate 94 H 79 Pulse Rate [Right] 91 H Respiratory Rate 16 17 Blood Pressure 145/89 H Blood Pressure [Right Arm] 175/83 H Blood Pressure Mean Blood Pressure Mean [Right Arm] 113 02 Sat by Pulse Oximetry 100 100 12/31/23 21:00 Temperature Temperature Source Pulse Rate 59 L Pulse Rate [Right] Respiratory Rate 12 Blood Pressure 105/61 L Blood Pressure [Right Arm] Blood Pressure Mean 75 Blood Pressure Mean [Right Arm] 02 Sat by Pulse Oximetry 99 Lab Data Labs: Lab Results 12/31/23 19:52: WBC 9.7, RBC 4.76, Hgb 13.7, Hct 40.5, MCV 85.0, MCH 28.8, MCHC 33.8, RDW 15.8, Plt Count 329, MPV 7.9, Neut % (Auto) 49.7, Lymph % (Auto) 42.9, [place] % (Auto) 4.4, Eos % (Auto) 1.6, Baso % (Auto) 1.5, Neut # (Auto) 4.8, Lymph # (Auto) 4.2, [place] # (Auto) 0.4, Eos # (Auto) 0.2, Baso # (Auto) 0.1, Sodium 138, Potassium 3.2 L, Chloride 103, Carbon Dioxide 26, Anion Gap 12.2, BUN 12, Creatinine 0.60, Estimated Creat Clear 142, Estimated GFR 117, Est GFR ( Amer) 142, Glucose 110 H, Calcium 9.5, Total Bilirubin 0.5, AST 39 H, ALT 32, Alkaline Phosphatase 73, Troponin I < 0.01, Total Protein 8.1, Albumin 4.8, Globulin 3.3 H, Albumin/Globulin Ratio 1.5, Lipase 367 H, Serum HCG, Qual Nega tive 12/31/23 19:52 12/31/23 19:52 Response Orders (Tests/Meds): ED MEDICATIONS Generic Name Dose Route Start Last Admin Trade Name Freq PRN Reason Stop Dose Admin Ondansetron HCl 4 mg 12/31/23 21:18 Ondansetron 4mg Odt SL 12/31/23 21:19 ONCE ONE Potassium Chloride 40 meq 12/31/23 21:16 Potassium Chloride 20meq Tab PO 12/31/23 21:17 ONCE ONE Sodium Chloride 10 ml 12/31/23 20:23 Sodium Chloride 0.9% 10ml Syr (Rad Only) IV 01/30/24 20:22 NEEDED PRN Maintain IV Site Discontinued Medications Generic Name Dose Route Start Last Admin Trade Name Freq PRN Reason Stop Dose Admin Acetaminophen 1,000 mg 12/31/23 19:58 12/31/23 20:01 Acetaminophen 1,000mg/100ml Vial IV 12/31/23 19:59 1,000 mg ONCE ONE Administration Belladonna Alkaloids 60 ml 12/31/23 19:55 12/31/23 20:01 Belladonna Alkaloids 60 Ml Ml PO 12/31/23 19:56 60 ml ONCE ONE Administration Iopamidol 100 ml 12/31/23 20:23 12/31/23 20:24 Iopamidol-370 (76%);100ml Bottle IV 12/31/23 20:24 100 ml ONCE ONE Administration Morphine Sulfate 4 mg 12/31/23 19:58 12/31/23 20:01 Morphine 4mg/Ml Syringe IV 12/31/23 19:59 4 mg ONCE ONE Administration Ondansetron HCl 4 mg 12/31/23 19:58 12/31/23 20:01 Ondansetron 4mg/2ml Vial IV 12/31/23 19:59 4 mg ONCE ONE Administration Sodium Chloride 50 ml 12/31/23 20:23 12/31/23 20:24 0.9 % Sodium Chloride 50 Ml Vial IV 12/31/23 20:24 50 ml ONCE ONE Administration ORDERS Category Date Time Status CT abdomen pelvis w con Stat Cat Scan 12/31/23 19:[address] angio chest - dissection Stat Cat Scan 12/31/23 19:56 Completed CXR --portable [XR chest portable] Stat Exams 12/31/23 19:55 Completed CBC w/Auto Diff [Complete Blood Count Auto Diff] Stat Lab 12/31/23 19:52 Completed CMP [Comprehensive Metabolic Panel] Stat Lab 12/31/23 19:52 Completed HCG Qualitative, Serum Stat Lab 12/31/23 19:52 Completed Lipase Stat Lab 12/31/23 19:52 Completed Trop I [Troponin I] Stat Lab 12/31/23 19:52 Completed Troponin I Q3H Lab 12/31/23 23:00 Ordered Troponin I Q3H Lab 01/01/24 02:00 Ordered ECG Data Tracing #1: ECG Narrative: Independently interpreted by me, rate is 87, rhythm is regular, axis is normal, no ST elevation in anatomical contiguous leads, QTc 399. MDM Narrative Medical Decision Narrative: In summary patient is a 28-year-old female with past medical history described above presents emergency department for evaluation of epigastric pain. Patient is hemodynamically stable and in distress upon arrival, appearing in significant pain, afebrile. Differential diagnosis includes pancreatitis, cholecystitis, ACS, pulmonary embolism, intra-abdominal fluid collection, among others. Workup will be conducted with hematologic labs, CTA chest, CT abdomen pelvis IV contrast, EKG, troponin, urinalysis. Initial inventions include GI cocktail, morphine, Tylenol, Zofran. Initial workup reviewed by me, hematologic labs rem arkable for mild hypokalemia which will be repleted orally, initial troponin below detectable limit. Lipase is 367. hCG negative. Imaging remarkable for 5.6 cm simple appearing right ovarian cyst, remainder of CT abdomen pelvis shows no acute pathology. Specifically no ductal dilatation or evidence of cholecystitis. CTA chest shows no acute findings. I have no concern for torsion given the location of patient's pain for ultrasound Doppler was considered but will be deferred. Upon repeat evaluation patient had significant resolution of her symptoms. Patient underwent p.o. trial was successful and is appropriate for discharge at this time. Patient will be discharged with a course of Zofran and will follow-up with Dr. Gamez later this week.
[2023-12-31 20:10] LABS: Alanine Aminotransferase 32 U/L (12-78); Aspartate Amino Transferase 39 U/L (14-36); Blood Urea Nitrogen 12 mg/dl (7-17); Creatinine Clearance Estimated 142 mL/min (50-200); Estimated Glomerular Filt Rate 117 ml/min (>60); GFR (African American) 142 ML/MIN (>60)
[2023-12-31 20:11] LABS: Albumin Level 4.8 g/dl (3.5-5.0); Albumin/Globulin Ratio 1.5 (1.1-1.8); Alkaline Phosphatase 73 U/L (38-126); Anion Gap 12.2 mEq/L (5-15); Bilirubin,Total 0.5 mg/dl (0.2-1.3); Calcium 9.5 mg/dl (8.4-10.2); Carbon Dioxide 26 mmol/L (22.0-30.0); Globulin 3.3 g/dL (1.3-3.2); Glucose 110 mg/dl (74-100); Lipase 367 U/L (23-300); Total Protein,Serum 8.1 g/dl (6.3-8.2)
[2023-12-31 20:15] LABS: HCG Qualitative, Serum Negative (Negative)
--- NOTE | 2023-12-31 20:17 | PC.NURSE ---
patient gone to CT at this time.
[2023-12-31 20:24] LABS: Troponin I < 0.01 ng/ml (0.00-0.034)
[2023-12-31] MEDS: IOPAMIDOL-370 (76%);100ML BOTTLE 100 ML IV (20:24)
[2023-12-31] MEDS: 0.9 % SODIUM CHLORIDE 50 ML VIAL IV (20:24)
--- NOTE | 2023-12-31 20:29 | PC.NURSE ---
patient back from CT at this time.
[2023-12-31 21:00] VITALS: BP 105/61; PULSE 59; RESP 12; O2SAT 99
--- NOTE | 2023-12-31 21:13 | PC.NURSE ---
in room talking with patient at this time.
[2023-12-31] MEDS: POTASSIUM CHLORIDE 20MEQ TAB 40 MEQ PO (21:30)
[2023-12-31] MEDS: ONDANSETRON 4MG ODT 4 MG SL (21:30)
[2023-12-31 21:41] VITALS: BP 111/66; PULSE 59; RESP 15; TEMP 36.6; O2SAT 97
== END 2023-12-31 21:44 | disposition home or self-care (01) ==
PROVIDERS: Emergency Provider Emergency Medicine
DX: R10.13 Epigastric pain (principal); R10.84 Generalized abdominal pain; K85.90 Acute pancreatitis without necrosis or infection, unspecified; E87.6 Hypokalemia
CPT/HCPCS: 71045; 71275; 74177; 80053; 83690; 84484; 84703; 85025; 93005; 96374; 96375; 99285; J0131; J2405; Q9967

== ENCOUNTER 2024-01-30 16:39 | Day surgery (SDC) | payer BC, SELFPAY ==
[2024-01-30] VITALS (13 sets, daily range): BP systolic 123–152; BP diastolic 73–93; PULSE 70–124; RESP 15–22; TEMP 36.4–37.1; O2SAT 96–100; BMI 27.3
--- NOTE | 2024-01-30 16:41 | PC.NURSE ---
US PAGED FOR R/O TORSION
[2024-01-30] MEDS: LACTATED RINGERS 1000ML 1,000 ML 999 ML IV (16:55)
--- NOTE | 2024-01-30 16:55 | ED_ITS ---
Discharge Plan Disposition Patient Disposition: Admitted Condition: Fair Prescriptions Prescriptions: No Action ibuprofen 800 mg tablet 800 mg PO Q8H PRN (Reason: pain) Qty: 20 0RF [id number] 27 mg iron- 800 mcg-235 mg Capsule 1 cap PO DAILY ondansetron 4 mg tablet,disintegrating 4 mg PO Q8H PRN (Reason: nausea and vomiting) 4 Days Qty: 12 0RF Clinical Impressions Clinical Impression: Torsion of left ovary, Hemorrhagic cyst of left ovary Instructions Patient Instructions: DI for Acute Abdominal Pain Discharge ED Provider: Monalisa Powers General Adult HPI General Chief complaint: Abdominal Pain Stated complaint: Abd pain Time Seen by Provider: 01/30/24 16:40 History of Present Illness HPI narrative: This patient is a 28-year-old female with a history of extensive gynecologic history including multiple miscarriages and multiple D&Cs presenting to the emergency department for evaluation with concern for severe pelvic and left lower quadrant abdominal pain. She notes that she has been having pain all day, but it had been bearable. She thought that it was related to having a period, as she just started her first period since her most recent D&C at [facility]. She notes that she is having very minimal bleeding, but the pain became more severe in her suprapubic/left lower quadrant region just between 2 and 3 PM. She states that now, she is unable to move secondary to severe pain. She denies any fevers, chills, vomiting, changes in bowel movements, dysuria, or other concerns. She denies taking any recent test but notes she is unlikely to be given her recent D&C. No other concerns noted at this time. Related Data Home Medications Medication Instructions Recorded Confirmed vit 168-iron 27 mg-folic 1 cap PO DAILY Supplement 03/02/23 08/24/23 acid 800 mcg-omega3 235 mg capsule Previous Rx's Medication Instructions Recorded ibuprofen 800 mg tablet 800 mg PO Q8H PRN pain #20 tabs 08/25/23 ondansetron 4 mg disintegrating 4 mg PO Q8H PRN nausea and 12/31/23 tablet vomiting 4 days #12 tabs Allergies Allergy/AdvReac Type Severity Reaction Status Date / Time No Known Allergies Allergy Verified 08/15/23 08:29 [facility] Disclaimer: The information contained in this section may have been updated after the patient was seen, as this information can be updated by other users. Medical History Acute blood loss anemia Anxiety Generalized anxiety disorder History of miscarriage, currently Incomplete miscarriage Miscarriage Positive test Spontaneous miscarriage Vaginal bleeding affecting early Surgical History H/O cardiac radiofrequency ablation Hx of laparoscopy S/P D&C (status post dilation and curettage) Family History Other No significant family history Social History Smoking Status: Never smoker second hand exposure: No alcohol intake: never substance use type: denies use current occupational status: employed Travel in the last 8 weeks: None adopted: No caregiver/support person: Yes (for her kids) foster care: No household members: spouse and children housing: house lives independently: Yes marital status: number of children: 3 number of grandchildren: 0 education level: high school service: No detention: No Hx Recent Travel: No sexually active: Yes caffeine: Yes physical activity: none romi/adventist: Latter Day special romi needs: No working smoke detector in home: Yes fire extinguisher in home: Yes carbon monox detector in home: Yes firearms in home: Yes firearms unloaded and locked: Yes do you feel safe at home: Yes victim of physical abuse: No victim of emotional abuse: No victim of sexual abuse: No would you like helpful sources: No ROS Obtained: Yes All systems reviewed & no additional complaints except as documented Physical Exam General General appearance: alert Comment: Very uncomfortable appearing Head Head exam: atraumatic and normocephalic Eye Eye exam: Present normal appearance, PERRL and EOMI ENT ENT exam: Present normal exam, normal oropharynx, mucous membranes moist and normal external ear exam Neck Neck exam: Present normal inspection, full ROM and trachea midline; Absent tenderness Chest Chest inspection: Present normal inspection and symmetric chest wall rise; Absent tenderness Respiratory Respiratory exam: Present normal lung sounds bilaterally; Absent respiratory distress, wheezes, stridor or accessory muscle use Cardiovascular Cardiovascular exam: Present regular rate and normal rhythm Abdominal Exam Abdominal exam: Present soft, tenderness (Suprapubic, left lower quadrant) and guarding (Suprapubic, left lower quadrant); Absent distention, rebound or rigidity Extremities Exam Extremities exam: Present normal inspection, full ROM and normal capillary refill; Absent tenderness or edema Back Exam Back exam: Present normal inspection and full ROM; Absent tenderness Neurological Exam Neurological exam: Present alert, oriented X3, CN II-XII intact and normal gait; Absent motor sensory deficit Psychiatric Psychiatric exam: Present normal affect and normal mood Skin Skin exam: Present warm and dry Medical Decision Making Medical Records Medical records reviewed: Yes I reviewed the patient's medical records. Sahil Inquiry Pt receiving controlled substance: No Vital Signs: 01/30/24 16:39 Temperature 98.7 F Temperature Source Oral Pulse Rate [Right Radial] 71 Respiratory Rate 18 Blood Pressure [Right Arm] 124/84 Blood Pressure Mean [Right Arm] 97 Blood Pressure Source [Right Arm] Automatic Cuff Blood Pressure Position [Right Arm] Supine 02 Sat by Pulse Oximetry 96 Oxygen Delivery Method Room Air Lab Data Lab results reviewed: Yes I reviewed the patient's lab results. Lab Results 01/30/24 16:43: WBC 14.3 H, RBC 4.37, Hgb 13.4, Hct 39.6, MCV 90.6, MCH 30.6, MCHC 33.7, RDW 14.3, Plt Count 296, MPV 8.3, Neut % (Auto) 78.3, Lymph % (Auto) 15.3, [place] % (Auto) 5.0, Eos % (Auto) 0.5, Baso % (Auto) 0.9, Neut # (Auto) 11.2 H, Lymph # (Auto) 2.2, [place] # (Auto) 0.7, Eos # (Auto) 0.1, Baso # (Auto) 0.1, Sodium 136, Potassium 3.6, Chloride 104, Carbon Dioxide 27, Anion Gap 8.6, BUN 11, Creatinine 0.60, Estimated Creat Clear 142, Estimated GFR 117, Est GFR ( Amer) 142, Glucose 116 H, Calcium 8.8, Total Bilirubin 0.4, AST 50 H, ALT 35, Alkaline Phosphatase 80, Total Protein 7.3, Albumin 4.4, Globulin 2.9, Albumin/Globulin Ratio 1.5, Serum HCG, Qual Negative 01/30/24 18:20: Urine Color [place], Urine Appearance Clear, Urine pH 7.0, Ur Specific [place] <= 1.005, Urine Protein Negative, Urine Glucose (UA) Negative, Urine Ketones Negative, Urine Blood 3+, Urine Nitrate Negative, Urine Bilirubin Negative, Urine Urobilinogen 0.2, Ur Leukocyte Esterase Negative, Urine RBC 20- 50, Urine WBC Occasional, Ur Squamous Epith Cells Occasional, Urine Bacteria None 01/30/24 16:43 01/30/24 16:43 Orders (Tests/Meds): ED MEDICATIONS Discontinued Medications Generic Name Dose Route Start Last Admin Trade Name Freq PRN Reason Stop Dose Admin Hydromorphone HCl 1 mg 01/30/24 16:40 01/30/24 16:57 Hydromorphone 2mg/Ml Syringe IV 01/30/24 16:41 1 mg ONCE ONE Administration Hydromorphone HCl 1 mg 01/30/24 18:27 01/30/24 18:40 Hydromorphone 2mg/Ml Syringe IV 01/30/24 18:28 1 mg ONCE ONE Administration Lactated Ringer's 1,000 mls @ 999 mls/hr 01/30/24 16:40 01/30/24 16:55 Lactated Ringer's 1000 Ml Bag IV 01/30/24 17:40 999 mls/hr .Q1H1M ONE Administration Ketorolac Tromethamine 15 mg 01/30/24 16:40 01/30/24 16:57 Ketorolac 30mg/Ml Vial IV 01/30/24 16:41 15 mg ONCE ONE Administration Ondansetron HCl 4 mg 01/30/24 16:40 01/30/24 16:57 Ondansetron 4mg/2ml Vial IV 01/30/24 16:41 4 mg ONCE ONE Administration ORDERS Category Date Time Status US transvaginal Stat Exams 01/30/24 16:41 Ordered Complete Blood Count Auto Diff Stat Lab 01/30/24 16:43 Completed Comprehensive Metabolic Panel Stat Lab 01/30/24 16:43 Completed HCG Qualitative, Serum Stat Lab 01/30/24 16:43 Completed Urinalysis and Microscopic Stat Lab 01/30/24 18:20 Completed Medical Decision Narrative: In summary, this patient is a 28-year-old female presenting to the Emergency Department for evaluation of severe pelvic and left lower quadrant pain that has been intermittent and manageable today but got acutely worse around 2 to 3 PM. Differential diagnoses considered include but are not limited to ovarian torsion, ruptured ovarian cyst, ectopic , cystitis, ureterolithiasis, pyelonephritis. Ruling out the most morbid conditions drove assessment. On exam, the patient is very uncomfortable appearing with tenderness in the left lower quadrant and suprapubic regions. Workup included CBC, CMP, test, and urinalysis as well as an emergent transvaginal ultrasound to exclude ovarian torsion. We called an ultrasound right away. Patient was given a bolus of IV fluids as well as IV Toradol, Dilaudid, and Zofran.. I independently interpreted ultrasound prior to the radiologist read and noted very large left hemorrhagic cyst with flow to the outer edge of the ovary that is visible, however this is highly concerning for torsion. Please see their read for final interpretation. I had and after discussion with radiologist via phone who advised that he cannot definitively exclude torsion if the clinical picture fits. Labs were obtained that demonstrated mild leukocytosis as well as hematuria. Given high concern for torsion, I emergently initiated discussions with the patient regarding emergent gynecologic evaluation. She advised that she has recently transferred her care to [facility], and she would prefer to transfer there for surgical evaluation. Advised that time is about most importance and I would not delay gynecologic evaluation for transfer if it were much worse, however she would like to try and be transferred there. She expressed understanding and agreement that with increased time she has increased risk of loss of her left ovary. As of 1851, we are still waiting for [facility] to call back. We called them again to stressed the importance of emergently speaking with gynecology, as this is high concern for torsion. Awaiting another call back. Patient is aware that they have not yet called back and that this is delaying care. On initial reassessment, patient had improved symptoms after administration of medications. She did have recurrence of symptoms, so she was given another dose of IV Dilaudid. I advised patient again I would not continue to wait for [facility] to call back, as the longer we wait the higher the risk for loss of ovary or other complications. she is agreeable to OBGYN evaluation here. I called and had an emergent discussion with Dr. Giordano who came right away to assess the patient. At ~1930 decision made to take patient to OR per Dr. Giordano. We assisted with facilitation of this, and she was taken right away in stable condition. Critical Care Critical Care Time Critical Care Time: No
[2024-01-30 16:56] LABS: Basophils # 0.1 K/mm3 (0-0.2); Basophils % 0.9 % (0.1-2.0); Eosinophils # 0.1 K/mm3 (0.0-0.4); Eosinophils % 0.5 % (0.1-12.0); Hematocrit 39.6 % (37.0-47.0); Hemoglobin 13.4 g/dL (12.2-16.2); Lymphocytes # 2.2 K/mm3 (0.7-4.5); Lymphocytes % 15.3 % (10-50); Mean Corpuscular HGB Conc 33.7 g/dL (31.8-35.4); Mean Corpuscular Hemoglobin 30.6 pg (27.0-31.2); Mean Corpuscular Volume 90.6 fl (81-99); Mean Platelet Volume 8.3 fl (7.4-10.4); Monocytes # 0.7 K/mm3 (0.1-1.0); Neutrophils # 11.2 K/mm3 (1.8-7.8); Neutrophils % 78.3 % (37.0-80.0); Platelet Count 296 K/mm3 (142-424); Red Blood Count 4.37 M/mm3 (4.20-5.40); Red Cell Distribution Width 14.3 % (11.5-17.5); White Blood Count 14.3 K/mm3 (4.8-10.8)
[2024-01-30] MEDS: ONDANSETRON 4MG/2ML VIAL 4 MG IV (16:57)
[2024-01-30] MEDS: KETOROLAC 30MG/ML VIAL 15 MG IV (16:57)
[2024-01-30] MEDS: HYDROMORPHONE 2MG/ML SYRINGE 1 MG IV ×2 (16:57→18:40)
[2024-01-30 17:06] LABS: Chloride 104 mmol/L (98-107); Potassium 3.6 mmoL/L (3.5-5.1); Sodium 136 mmol/L (136-145)
[2024-01-30 17:09] LABS: Alanine Aminotransferase 35 U/L (12-78); Albumin Level 4.4 g/dl (3.5-5.0); Albumin/Globulin Ratio 1.5 (1.1-1.8); Alkaline Phosphatase 80 U/L (38-126); Anion Gap 8.6 mEq/L (5-15); Aspartate Amino Transferase 50 U/L (14-36); Bilirubin,Total 0.4 mg/dl (0.2-1.3); Blood Urea Nitrogen 11 mg/dl (7-17); Calcium 8.8 mg/dl (8.4-10.2); Carbon Dioxide 27 mmol/L (22.0-30.0); Creatinine Clearance Estimated 142 mL/min (50-200); Estimated Glomerular Filt Rate 117 ml/min (>60); GFR (African American) 142 ML/MIN (>60); Globulin 2.9 g/dL (1.3-3.2); Glucose 116 mg/dl (74-100); HCG Qualitative, Serum Negative (Negative); Total Protein,Serum 7.3 g/dl (6.3-8.2)
--- NOTE | 2024-01-30 18:16 | PC.NURSE ---
Dr. Powers at BS to update pt on POC
--- NOTE | 2024-01-30 18:16 | PC.NURSE ---
Spoke with [facility] at [facility] about possible pt transfer
--- NOTE | 2024-01-30 18:22 | PC.NURSE ---
Dr. Powers speaking with [facility]
[2024-01-30 18:27] LABS: Microscopic, Urine URINE MICROSCOPIC (MICROSCOPIC)
--- NOTE | 2024-01-30 18:27 | PC.NURSE ---
US POWER SHARED WITH [facility]
[2024-01-30 18:28] LABS: Appearance,Urine CLEAR (Clear); Bilirubin,Urine Negative (Negative); Blood, Urine 3+ (Negative); Glucose,Urine (UA) Negative (Negative); Ketones,Urine Negative (Negative); Leukocyte Esterase,Urine Negative (Negative); Nitrate,Urine Negative (Negative); Protein,Urine Negative (Negative); Specific Gravity, Urine <= 1.005 (1.005-1.030); Urobilinogen,Urine 0.2 EU/dl (0.2)
[2024-01-30 18:39] LABS: Color,Urine Orange (Yellow)
[2024-01-30 18:45] LABS: RBC,Urine 20-50 #/hpf (0-3); Squamous Epithelial Cell,Urine Occasional #/hpf (0-5); WBC,Urine Occasional #/hpf (0-3)
--- NOTE | 2024-01-30 18:53 | PC.NURSE ---
Spoke with [facility] at [facility]. Advised OBGYN is in surgery and will call back when she is available.
--- NOTE | 2024-01-30 19:08 | PC.NURSE ---
paged at this time.
--- NOTE | 2024-01-30 19:10 | PC.NURSE ---
on phone with at this time.
--- NOTE | 2024-01-30 19:24 | PC.NURSE ---
Dr. Giordano at bedside
--- NOTE | 2024-01-30 19:39 | PC.NURSE ---
in room talking with patient at this time.
--- NOTE | 2024-01-30 19:53 | P.HP_ITS ---
History of Present Illness *Admission Date: 01/30/24 *Reason for visit:: ovarian torsion *History of present illness: Esmer is a 28-year-old -0-3-3 female with an extensive gynecologic history including multiple miscarriages and multiple D&Cs presenting to the emergency department for evaluation with concern for severe pelvic and left lower quadrant abdominal pain. She notes that she has been having pain all day. States slowly throughout the day it has gotten worse. Accompanied by nausea and decreased appetite. States that she tried to call her primary OB at [facility] but was unable to get ahold of anyone or have anyone call her back. Since about 3pm she has been unable to get any relief at all. She thought this morning it was just menstrual cramps she she thought she was starting her menstrual cycle, however the pt states its significantly worse than that. Reports the pain is worse in her suprapubic/left lower quadrant region. She states that now, she is unable to move secondary to severe pain. She denies any fevers, chills, vomiting, changes in bowel movements, dysuria, or other concerns. No other concerns noted at this time. Reviewed surgical hx. NKDA. Last ate at 11AM. [facility] Disclaimer: The information contained in this section may have been updated after the patient was seen, as this information can be updated by other users. Medical History Acute blood loss anemia Anxiety Generalized anxiety disorder History of miscarriage, currently Incomplete miscarriage Miscarriage Positive test Spontaneous miscarriage Vaginal bleeding affecting early Surgical History H/O cardiac radiofrequency ablation Hx of laparoscopy S/P D&C (status post dilation and curettage) Family History Other No significant family history Social History Smoking Status: Never smoker second hand exposure: No alcohol intake: never substance use type: denies use current occupational status: employed Travel in the last 8 weeks: None adopted: No caregiver/support person: Yes (for her kids) foster care: No household members: spouse and children housing: house lives independently: Yes marital status: number of children: 3 number of grandchildren: 0 education level: high school service: No correction: No Hx Recent Travel: No sexually active: Yes caffeine: Yes physical activity: none romi/mormon: Protestant special romi needs: No working smoke detector in home: Yes fire extinguisher in home: Yes carbon monox detector in home: Yes firearms in home: Yes firearms unloaded and locked: Yes do you feel safe at home: Yes victim of physical abuse: No victim of emotional abuse: No victim of sexual abuse: No would you like helpful sources: No Review of Systems Review of Systems Review of systems (narrative): Review of Systems Constitutional: Denies fever, chills, and sweats Eyes: Denies vision change/ pain Respiratory: Denies cough and shortness of breath Cardiovascular: Denies chest pain and lightheadedness Gastrointestinal: Admits abdominal pain and nausea. Denies vomiting. Genitourinary: Denies dysuria and incontinence Musculoskeletal: Denies shoulder pain and back pain Neurological: Denies change in speech or headaches Meds Home Medications and Allergies Home Medications Medication Instructions Recorded Confirmed Type No Known Home Medications 01/30/24 01/30/24 History New Prescriptions to Start Prescriptions: Allergies Allergy/AdvReac Type Severity Reaction Status Date / Time No Known Allergies Allergy Verified 08/15/23 08:29 Exam Data for Last 24 hours Vital signs and Labs for Last 24 Hours: Temp Pulse Resp BP Pulse Ox O2 Del Method 98.7 F 80 15 150/93 H 99 Room Air 01/30/24 16:39 01/30/24 19:36 01/30/24 19:36 01/30/24 19:36 01/30/24 19:36 01/30/24 16:39 Laboratory Results - last 24 hr 01/30/24 16:43: WBC 14.3 H, RBC 4.37, Hgb 13.4, Hct 39.6, MCV 90.6, MCH 30.6, MCHC 33.7, RDW 14.3, Plt Count 296, MPV 8.3, Neut % (Auto) 78.3, Lymph % (Auto) 15.3, Collin % (Auto) 5.0, Eos % (Auto) 0.5, Baso % (Auto) 0.9, Neut # (Auto) 11.2 H, Lymph # (Auto) 2.2, Collin # (Auto) 0.7, Eos # (Auto) 0.1, Baso # (Auto) 0.1, Sodium 136, Potassium 3.6, Chloride 104, Carbon Dioxide 27, Anion Gap 8.6, BUN 11, Creatinine 0.60, Estimated Creat Clear 142, Estimated GFR 117, Est GFR ( Amer) 142, Glucose 116 H, Calcium 8.8, Total Bilirubin 0.4, AST 50 H, ALT 35, Alkaline Phosphatase 80, Total Protein 7.3, Albumin 4.4, Globulin 2.9, Albumin/Globulin Ratio 1.5, Serum HCG, Qual Negative 01/30/24 18:20: Urine Color Alvin, Urine Appearance Clear, Urine pH 7.0, Ur Specific [place] <= 1.005, Urine Protein Negative, Urine Glucose (UA) Negative, Urine Ketones Negative, Urine Blood 3+, Urine Nitrate Negative, Urine Bilirubin Negative, Urine Urobilinogen 0.2, Ur Leukocyte Esterase Negative, Urine RBC 20- 50, Urine WBC Occasional, Ur Squamous Epith Cells Occasional, Urine Bacteria None I & O for Last 24 hours: Intake & Output 01/27/24 01/28/24 01/29/24 01/30/24 23:59 23:59 23:59 23:59 Weight 145 lb Narrative: General: patient is alert oriented in no acute distress and responds appropriately to questions. HEENT: NCAT, EOMI, moist mucous membranes, neck supple with full ROM Cardiovascular: RRR +S1/S2, no murmurs or rubs Pulmonary: Clear to auscultation bilaterally, nonlabored breathing, symmetric chest rise Abdominal: soft, no guarding or rebound tenderness noted. no distension. Mild- moderate tenderness with palpation. Extremities: no edema, no tenderness or cyanosis noted Skin: Normal turgor, intact, warm. Negative for erythema, pallor, petechia, or lesions. Scarring for previous laparoscopic incisions noted Neurologic: Negative for sensory or motor deficit Psychiatric: Normal affect, normal thought process, good judgment and insight, no depression or anxious mood appreciated. *Routine HEENT Exam Head: Present normocephalic and atraumatic Eye: Present EOMI, PERRL and normal accommodation; Absent conjunctival icterus, scleral injection, nystagmus or exophthalmos ENT: Present mucous membranes moist *Routine Respiratory Exam Respiratory: Present CTA bilaterally, normal respiratory effort, able to speak in complete sentences and symmetric chest movement; Absent accessory muscle use, decreased breath sounds, rales, respiratory distress, wheezes, distant breath sounds or diminished air movement *Routine Cardiovascular Exam Cardiovascular: Present RRR, Normal S1 and Normal S2; Absent murmur or gallop *Routine Abdominal Exam Abdominal: Present soft and normoactive bowel sounds; Absent tenderness, distended, rebound or guarding *Routine Rectal Exam Rectal:: deferred *Routine Genitalia Exam Genitalia:: normal female Assessment and Plan *Assessment and plan (1) Ovarian cyst: Status: Acute Category: Medical Code(s): N83.209 - Unspecified ovarian cyst, unspecified side (2) Torsion of left ovary: Status: Acute Category: Medical Code(s): N83.512 - Torsion of left ovary and ovarian pedicle (3) Hemorrhagic cyst of left ovary: Status: Acute Category: Medical Code(s): N83.202 - Unspecified ovarian cyst, left side (4) Generalized anxiety disorder: Status: Acute Category: Medical Code(s): F41.1 - Generalized anxiety disorder Plan -Reviewed labs in the ED to include a negative UPT and normal hemoglobin. Mild leukocytosis noted -Interpreted her transvaginal ultrasound independently as the read was not back yet from ultrasound: Appears to be a left hemorrhagic ovarian cyst that measures 5.4 x 4.1 x 4.8 cm with a volume of 56 mL. There appears to be arterial flow but no venous flow to the ovary. Right ovary appears normal with small peripheral follicle. Uterus appears normal. No fluid in the cul-de-sac noted. -Discussed the FAST exam completed by the ED physician who stated low suspicion for free fluid in the cul-de-sac. -In the ED the patient received a bolus of IV fluids, IV Toradol, Dilaudid, and Zofran. Reviewed the risk and benefits of proceeding to the OR with the patient and her significant other. Discussed the risk that this may not be an ovarian torsion and would be an unnecessary surgery. Discussed the risk of ovarian cystectomy leading to hemorrhage and possible oophorectomy. Reviewed the risk of diagnostic laparoscopy to include but not limited to injury to the surrounding structures including the bowel, bladder, ureters, neurovascular bundles, and reproductive organs including the ovary and fallopian tubes. Reviewed the risk of bleeding and the patient consented to blood transfusion if deemed medically necessary. Reviewed the risk of infection and the patient voiced understanding. I personally signed the surgical consent forms with the patient and reviewed all of these risks.
--- NOTE | 2024-01-30 20:18 | EXP.ANES.CKL ---
[facility] Disclaimer: The information contained in this section may have been updated after the patient was seen, as this information can be updated by other users. Medical History Acute blood loss anemia Anxiety Generalized anxiety disorder History of miscarriage, currently Incomplete miscarriage Miscarriage Positive test Spontaneous miscarriage Vaginal bleeding affecting early Surgical History H/O cardiac radiofrequency ablation Hx of laparoscopy S/P D&C (status post dilation and curettage) Family History Other No significant family history Social History Smoking Status: Never smoker second hand exposure: No alcohol intake: never substance use type: denies use current occupational status: employed Travel in the last 8 weeks: None adopted: No caregiver/support person: Yes (for her kids) foster care: No household members: spouse and children housing: house lives independently: Yes marital status: number of children: 3 number of grandchildren: 0 education level: high school service: No chcf: No Hx Recent Travel: No sexually active: Yes caffeine: Yes physical activity: none romi/presybeterian: Voodoo special romi needs: No working smoke detector in home: Yes fire extinguisher in home: Yes carbon monox detector in home: Yes firearms in home: Yes firearms unloaded and locked: Yes do you feel safe at home: Yes victim of physical abuse: No victim of emotional abuse: No victim of sexual abuse: No would you like helpful sources: No [facility] Anesthesia Checklist Patient Identification Patient Identification: Arm Band and Verbal (Name & ) Structural Data Admitted From: Emergency Dept Planned Operative Procedure/s: Diagnostic lap Consent for Planned Operative Procedure(s) Verified: Yes NPO Status Verified Time NPO: 16:00 (Water) Chart Verification Results Verified: CBC, BMP and HCG Additional verifications Anesthesia Reactions: No Airway Assessment Mallampati Score:: Class II C-Spine Mobility Assessed: Yes TMJ Mobility Assessed: Yes Dentition: Good Dentition Neurological Assessment Level of Consciousness: Awake Hx Seizures: No Numbness or tingling in extremities: No Anesthesia Plan Anesthesia Risk discussed: Yes Anesthesia Plan: Verified ASA Class: II Anesthesia Type: General
--- NOTE | 2024-01-30 20:29 | PC.NURSE ---
OR team here. Report given bedside with OR nurses
[2024-01-30] MEDS: LIDOCAINE 1% W/EPI 1:100,000 20ML VIAL 20 ML ×2 (20:55→21:21)
--- NOTE | 2024-01-30 21:51 | EXP.OP.NOTE ---
Date of procedure: 01/30/24 Pre-op Diagnosis:: 1. Significant pelvic pain 2. Suspected ovarian torsion 3. Left ovarian cyst Post-op Diagnosis:: 1. Significant pelvic pain 2. Suspected ovarian torsion 3. Left ovarian cyst Procedure performed:: Diagnostic laparoscopy with ovarian cystectomy Surgeon:: Shawna Giordano DO CAMPER ASSEMBLER:: Nidia Yanez Anesthesia: GETA Estimated blood loss (mL): 10 Operative findings:: 1. Bimanual examination revealed an anteverted 6-week size uterus with smooth contour without any adnexal masses. 2. Laparoscopic exam revealed a uterus with signs suggestive of endometriosis, there appeared to be scarring on the left fallopian tube. There was a large approximately 5 to 6 cm ovarian cyst. No signs or evidence of torsion. There was however blood in the cul-de-sac and a small amount of blood in the liver suggestive of cyst rupture and possible leading to the acute peritoneal signs that the patient was experiencing. There appeared to be blebs of endometriosis on the posterior aspect of the uterus. There appeared to be scarring in the posterior cul-de-sac. There appeared to be a dilated loop of colon on the right. Operative note:: Esmer Thompson is a 28-year-old who presented to the emergency department with significant pelvic pain and based on ultrasound was suspected to have ovarian torsion. Risk and benefit of diagnostic laparoscopy reviewed in detail with the patient and she consented to proceed with surgery. The patient was taken to the operating room where general anesthesia was obtained and noted to be adequate. SCDs were placed for thromboembolism prophylaxis and found to be working. The patient was placed in the dorsal lithotomy position using yellowfin stirrups. Timeout verified the correct patient and procedure. The patient was prepped and draped in a usual sterile fashion. An acorn uterine manipulator was placed and my top gloves were removed. 10mL of Lidocaine with epinepherine was injected infraumbilically and a scalpel was used to make a 5 mm infraumbilical incision with the assistance from a hemostat. The skin was tented and Optiview blunt trocar was introduced into the abdomen in the usual fashion. CO2 gas was connected with an initial pressure of 6 mmHg noted. Pneumoperitoneum was created to a pressure of 15 mmHg. The laparoscopic camera was inserted and a quick survey of the abdomen revealed above findings. The uterus appeared to be anteverted with a normal size shape and contour. The patient was placed in Trendelenburg. 10mLs of local anesthetic was injected and a 5mm incision was then made in the right lower quadrant with careful attention to avoid the rectus muscles and vasculature and under direct laparoscopic visualization a blunt trocar was introduced into the abdominal cavity. This process was repeated on the left side. The fallopian tubes were identified on the cornu of the uterus and followed out to the ovaries which revealed grossly appearing anatomy on the right. A grasper was used to elevate the left ovary which was noted to be enlarged with several adhesions to the pelvic sidewall. The left ureter was visualized and noted to be running immediately under the left ovary/cyst. The ovarian cyst was difficult to be distinguished from the ovary. The Ligasure monopolar L-hook was used to make a small linear incision in the ovarian cyst wall. The ovarian cyst was attempted to be shelled out using traction and countertraction. The ovarian cyst did rupture and the fluid was collected with a suction track machine operator repairer and sent to pathology for further evaluation. The remaining ovarian cyst wall was attempted to be removed. The edges of the cyst wall and incision were cauterized and noted to be hemostatic. The entire pelvis was copiously irrigated and suctioned dry. The pressure was dropped down to less than 10 and no bleeding was noted from the ovary. Pneumoperitoneum reduced, and all ports removed. The 3 abdominal incisions were closed with a single simple interrupted suture using 4-0 Vicryl. Dermabond was applied to each skin incision. The [place] uterine manipulator was removed. All counts were correct x2, per nursing. The patient was extubated, stable, and transferred to the PACU. She will be discharged after meeting all DC criteria to include voiding, ambulating and tolerating PO independently. Condition: stable Disposition: same day Specimens:: Ovarian cyst fluid and ovarian cyst wall Complications:: None
--- NOTE | 2024-01-30 21:57 | P.PNANES_ITS ---
[facility] Anesthesia Record Part I Anesthesia Record I Intake, IV Amount: 800 Hydration: Adequate Estimated blood loss (mL): 10 Urine output (mL): 20 Blood Pressure: 123/93 SaO2: 96 Pulse Rate: 124 Airway Patency: Patent Respiratory Rate: 22 Temperature: 97.5 F Patient is:: Awake Stable to PACU at:: 21:50
[2024-01-30] MEDS: TRAMADOL 50MG TAB TAKE HOME PACK (10) 1 PACKET PO (22:30)
== END 2024-01-30 22:50 | disposition home or self-care (01) ==
LOC: ER 19:38 → SDC 19:40
PROVIDERS: Emergency Provider Emergency Medicine; PCP Internal Medicine Adolescent Medicine; Visit Provider Obstetrics & Gynecology
PROC: (CPT 49320; principal; 2024-01-30 08:40)
DX: N83.202 Unspecified ovarian cyst, left side (principal); R10.2 Pelvic and perineal pain; N80.00 Endometriosis of the uterus, unspecified; K63.89 Other specified diseases of intestine
CPT/HCPCS: 58662; 76830; 80053; 81001; 84703; 85025; J3490; J0131; J2405

== ENCOUNTER 2024-02-27 08:51 | Outpatient (CLI) | payer BC, SELFPAY | END 2024-02-27 23:59 | LOC: LAB 08:51 | PROVIDERS: PCP Internal Medicine Adolescent Medicine; Visit Provider Obstetrics & Gynecology | DX: N96 Recurrent pregnancy loss (principal) ==

== ENCOUNTER 2024-02-29 08:47 | Outpatient (CLI) | payer BC, SELFPAY ==
[2024-02-29 08:53] LABS: Microscopic, Urine URINE MICROSCOPIC (MICROSCOPIC)
[2024-02-29 10:35] LABS: Thyroid Stimulating Hormone 1.29 uIU/mL (0.465-4.68)
[2024-02-29 10:48] LABS: Appearance,Urine CLEAR (Clear); Bilirubin,Urine Negative (Negative); Blood, Urine TRACE-I (Negative); Color,Urine YELLOW (Yellow); Glucose,Urine (UA) Negative (Negative); Ketones,Urine Negative (Negative); Leukocyte Esterase,Urine TRACE (Negative); Nitrate,Urine Negative (Negative); Protein,Urine Negative (Negative); Specific Gravity, Urine >= 1.030 (1.005-1.030); Urobilinogen,Urine 0.2 EU/dl (0.2)
[2024-02-29 11:00] LABS: Hemoglobin A1C 4.7 % (4.0-6.0)
[2024-02-29 12:25] LABS: Bacteria,Urine Trace /lpf
[2024-03-01 13:34] LABS: Prolactin 3.2 ng/mL (4.8-33.4)
== END 2024-02-29 23:59 ==
LOC: LAB 08:48
PROVIDERS: PCP Internal Medicine Adolescent Medicine; Visit Provider Obstetrics & Gynecology
DX: N96 Recurrent pregnancy loss (principal)
CPT/HCPCS: 36415; 81001; 83036; 84146; 84443; 86900; 86901

== ENCOUNTER 2024-03-27 08:03 | Outpatient (CLI) | payer BC, SELFPAY ==
--- NOTE | 2024-03-27 08:03 | FL_ITS ---
FINAL REPORT CLINICAL HISTORY: .desire for 348.27 dap .40 fluoro time FINDINGS: FLUOROSCOPY LESS THAN 1 HOUR HISTORY: Fluoroscopy guidance. Fluoroscopic guidance was provided for hysterosalpingography. 6 spot films were obtained. A total of 0.40 minutes of fluoroscopy time were used. Total DAP: 348.27 mGy IMPRESSION: As above. Reviewed, Interpreted and Dictated by Julius Brewer III, MD Transcribed by Dara Garcia Authenticated and [facility]
[2024-03-27] MEDS: IOPAMIDOL-370 (76%);100ML BOTTLE 75 ML IV (09:07)
--- NOTE | 2024-03-27 12:20 | HMH.PROCNOTE ---
[facility] Procedure Note Date: 03/27/24 Time: 09:00 Procedure Note:: Findings: bilateral patent fallopian tubes without hydrosalpinx. No endometrial filling defects noted. Patient was positioned in the dorsal lithotomy position. Speculum was inserted. Cervix and vagina was cleansed with Hibiclens. Tenaculum was placed on anterior lip of the cervix. 20 cc of contrast was drawn up into a syringe and attached to the Chris HSG cannula. Contrast was flushed through cannula to remove air bubbles and ensure patency. Cannula was then inserted into the cervix. Fluoroscopy was initiated but all 20mL was noted to be in the vagina. Vagina was cleared of contrast and a second 20mL was drawn up and the cannula was ensured to be in the vagina. Fluoroscopy demonstrated contrast immediately flowing from endometrial cavity through right fallopian tube. An additional 10mL of contrast was pushed throught hte cannula and bilateral fallopian tubes were noted to be patent. Cavity appeared normal shape. Cannula was removed from the cervix. Tenaculum was removed from the cervix. Hemostasis was noted. Speculum removed from the vagina. Patient tolerated the procedure well.
== END 2024-03-27 23:59 | disposition home or self-care (01) ==
LOC: RAD 08:03
PROVIDERS: PCP Internal Medicine Adolescent Medicine; Visit Provider Obstetrics & Gynecology
DX: Z31.9 Encounter for procreative management, unspecified (principal); N97.1 Female infertility of tubal origin; E28.2 Polycystic ovarian syndrome
CPT/HCPCS: 74740; Q9967

== ENCOUNTER 2024-06-19 12:42 | Outpatient (CLI) | payer OTHER, SELFPAY ==
[2024-06-19 14:13] LABS: HCG,Quantitative 13253 mIU/ml (0-5.42)
[2024-06-21 08:21] LABS: Progesterone 13.6 ng/mL (.)
== END 2024-06-19 23:59 | disposition home or self-care (01) ==
LOC: LAB 12:46
PROVIDERS: PCP Internal Medicine Adolescent Medicine; Visit Provider Obstetrics & Gynecology
DX: N91.2 Amenorrhea, unspecified (principal); Z32.01 Encounter for pregnancy test, result positive
CPT/HCPCS: 84144; 84702

== ENCOUNTER 2024-06-28 16:04 | Outpatient (CLI) | payer OTHER, SELFPAY | END 2024-06-28 23:59 | disposition home or self-care (01) | LOC: LAB.DROPOF 16:04 | PROVIDERS: PCP Obstetrics & Gynecology; Visit Provider Obstetrics & Gynecology | DX: Z34.90 Encounter for supervision of normal pregnancy, unspecified, unspecified trimester (principal) | CPT/HCPCS: 87086; 87088; 87186 ==

== ENCOUNTER 2024-07-26 09:34 | Outpatient (CLI) | payer OTHER, SELFPAY ==
[2024-07-30 22:12] LABS: Neisseria gonorrhoeae, NAA Negative (Negative)
== END 2024-07-26 23:59 | disposition home or self-care (01) ==
LOC: LAB.DROPOF 07-29 09:34
PROVIDERS: PCP Obstetrics & Gynecology; Visit Provider Obstetrics & Gynecology
DX: Z34.81 Encounter for supervision of other normal pregnancy, first trimester (principal)
CPT/HCPCS: 87491; 87591

== ENCOUNTER 2024-09-18 12:44 | Outpatient (CLI) | payer OTHER, SELFPAY ==
--- NOTE | 2024-09-18 12:44 | US_ITS ---
PROCEDURE: US OB /MATERNAL DETAIL CLINICAL INDICATION: 20 week anatomy scan COMPARISON: No exams were available for comparison FINDINGS: Transabdominal sonographic images of the pelvis were obtained. From her established due date she is 18 weeks 2 days. Single viable intrauterine gestation. Breech position. Placenta: Posteriorplacenta grade 1. The placenta is 2.46 cm from the internal cervical os. There is an average amount of fluid. The cervix appears satisfactory. Closed and measuring 4.72 cm in length. Complete survey performed and was unremarkable on the submitted images as in PACS. No discrete anomalies identified on survey imaging by technologist. Active fetus. Three-vessel cord with satisfactory umbilical cord insertion. 4- chamber heart noted. Situs, aortic arch, LVOT, RVOT, three-vessel view appear normal. Survey of brain & ventricles Unremarkable. Cerebellum, thalamus, choroid plexus, cisterna magna appear normal. Face and neck survey unremarkable. Profile, nasion, lips and nose appeared normal. Diaphragm and chest views unremarkable. Abdomen: Both kidneys noted and unremarkable. Stomach and bladder noted and satisfactory. Spine: Survey of the spine satisfactory with no anomalies identified nor imaged. Cervical, thoracic, lower spine appear normal. Both arms and legs noted. Amniotic Fluid: Adequate. MVP 2.95 cm Measurements: Average ultrasound age 19weeks 2days. Estimated due date by ultrasound age 0302/10/2025. Estimated weight 284g BPD = 19weeks 1day HC = 19weeks 0 days AC = 19weeks 0 days FL = 19weeks 6days Growth Percentile= 94 Heart Rate = 149bpm Cerebellum = 18weeks 3days Humerus = 19weeks 3days HC/AC is 1.2 FL/BPD is 0.73 FL/AC is 0.23 IMPRESSION: 1. Viable fetus in the breech presentation with a posterior placenta grade 1. 2. The fluid is within normal limits MVP 2.95 cm. 3. Anatomical scan appears normal. 4. biometry is consistent with the dates. Dictated by: Edgardo Alarcon MD 09/18/2024 17:11 Edgardo Alarcon MD in OV 09/18/2024 17:11
== END 2024-09-18 23:59 | disposition home or self-care (01) ==
LOC: RAD 12:44
PROVIDERS: PCP Internal Medicine Adolescent Medicine; Visit Provider Obstetrics & Gynecology
DX: Z36.89 Encounter for other specified antenatal screening (principal); Z3A.18 18 weeks gestation of pregnancy
CPT/HCPCS: 76811

== ENCOUNTER 2024-11-13 08:04 | Outpatient (CLI) | payer OTHER, SELFPAY ==
[2024-11-13 09:28] LABS: Hemoglobin 10.9 g/dL (12.2-16.2); Mean Corpuscular HGB Conc 34.1 g/dL (31.8-35.4); Mean Corpuscular Hemoglobin 30.7 pg (27.0-31.2); Mean Corpuscular Volume 90.1 fl (81-99); Mean Platelet Volume 10.5 fl (7.4-10.4); Platelet Count 249 K/mm3 (142-424); Red Blood Count 3.55 M/mm3 (4.20-5.40); Red Cell Distribution Width 12.5 % (11.5-17.5); White Blood Count 6.7 K/mm3 (4.8-10.8)
[2024-11-13 09:29] LABS: Basophils % 0.6 % (0.1-2.0); Eosinophils # 0.1 K/mm3 (0.0-0.4); Eosinophils % 1.3 % (0.1-12.0); Lymphocytes # 1.6 K/mm3 (0.7-4.5); Lymphocytes % 24.2 % (10-50); Monocytes # 0.4 K/mm3 (0.1-1.0); Neutrophils # 4.5 K/mm3 (1.8-7.8); Neutrophils % 67.6 % (37.0-80.0)
[2024-11-13 09:35] LABS: Glucose,Fasting 92 mg/dl (74-100)
[2024-11-13 09:56] LABS: Glucose 1 Hour 142 mg/dL (74-100)
[2024-11-13 11:58] LABS: HIV Combo NEGATIVE (Negative)
[2024-11-13 14:53] LABS: RPR W/RFX Titers Nonreactive (Nonreactive)
[2024-11-14 06:23] LABS: HCV Ab Non Reactive (Non Reactive); Hepatitis B Surface Antigen Negative (Negative)
[2024-11-14 07:09] LABS: Rubella Antibodies, IgG 1.03 index (Immune >0.99)
== END 2024-11-13 23:59 | disposition home or self-care (01) ==
LOC: LAB 08:06
PROVIDERS: PCP Internal Medicine Adolescent Medicine; Visit Provider Obstetrics & Gynecology
DX: Z34.90 Encounter for supervision of normal pregnancy, unspecified, unspecified trimester (principal)
CPT/HCPCS: 36415; 82951; 85025; 86592; 86762; 86803; 86850; 87340; 87389

== ENCOUNTER 2024-12-04 08:47 | Outpatient (CLI) | payer OTHER, SELFPAY ==
--- NOTE | 2024-12-04 08:51 | US_ITS ---
PROCEDURE: US OB FOLLOW UP CLINICAL INDICATION: F/U OB U/S at 28wks-Growth /position COMPARISON: US US OB /MATERNAL DETAIL from 09/18/2024 FINDINGS: Transabdominal sonographic images of the pelvis were obtained. The following parameters are obtained: From her established due date she is 29weeks 2days Viable fetus in the cephalic presentation with a posterior placenta grade 1. The cervix measures 3.75 cm heart rate: 150bpm bpm. BPD: 31weeks 1day, 88 percentile HC: 31weeks 6days, 86 percent AC: 31weeks 0 days, 86 percentile FL: 31weeks 3days, 88 percentile HC/AC: 1.08 FL/BPD: 0.78 FL/AC: 0.23 Growth percentile: 94 Amniotic fluid index: 15.88cm, MVP 6.63 cm. No obvious anomalies evident. profile seen, stomach, bladder, kidneys, three-vessel cord, four chamber heart appear normal. kidneys: There is mild bilateral renal pelvis dilation measuring 3.6 mm and 4.2 mm IMPRESSION: 1. Viable fetus in the cephalic presentation with a posterior placenta grade 1. 2. The fluid is within normal limits with amniotic fluid index 15.88 cm, MVP 6.63 cm. 3. There has been good interval growth with the fetus currently 94th percentile. There is symmetric overall growth acceleration with the fetus 2 weeks ahead on all measurements. This is consistent with her anatomy ultrasound seen at 18 weeks when she was 94th percentile at that time. 4. Fetus is active. 5. Limited anatomical scan appears normal. 6. There is minimal bilateral renal pelvis dilation measuring 3.6 mm and 4.2 mm. Dictated by: Edgardo Alarcon MD 12/04/2024 11:18 Edgardo Alarcon MD in OV 12/04/2024 11:18
== END 2024-12-04 23:59 | disposition home or self-care (01) ==
PROVIDERS: PCP Internal Medicine Adolescent Medicine; Visit Provider Obstetrics & Gynecology
DX: O32.1XX0 Maternal care for breech presentation, not applicable or unspecified (principal); O36.63X0 Maternal care for excessive fetal growth, third trimester, not applicable or unspecified; Z3A.28 28 weeks gestation of pregnancy; N96 Recurrent pregnancy loss
CPT/HCPCS: 76816

== ENCOUNTER 2025-01-08 10:29 | Outpatient (CLI) | payer OTHER, SELFPAY ==
--- NOTE | 2025-01-08 10:30 | US_ITS ---
PROCEDURE: US OB BIOPHYSICAL PROFILE CLINICAL INDICATION: LGA COMPARISON: US US OB /MATERNAL DETAIL from 09/18/2024 US US OB FOLLOW UP from 12/04/2024 FINDINGS: Transabdominal sonographic images of the uterus were obtained. From her established due date she is 34weeks 2days. The following parameters are obtained: Viable Fetus in the cephalic presentation with a posterior placenta grade 2. Average ultrasound age is 35weeks 4days Estimated weight 2,771g, 6 lb 2 oz The cervix measures 3.42 cm Measurements: heart Rate = 136bpm BPD = 35weeks 0 days, 67 percentile HC = 35weeks 4days, 45 percentile AC = 36weeks 4days, 97 percentile FL = 34weeks 6days, 55 percentile HC/AC is 0.97 FL/BPD is 0.78 FL/AC is 0.21 86 percentile Amniotic fluid index: 16.93cm, MVP 5.21 cm Qualitative AFV:2 Breathing movements: 2 Gross Body Movements: 2 Tone: 2 Biophysical profile score: 8 No obvious anomalies evident.Kidneys, profile, stomach, bladder, four-chamber heart, three-vessel cord appear normal. There is mild bilateral renal pelvis dilation measuring 4.8 mm and 5.8 mm. IMPRESSION: 1. Viable fetus in the cephalic presentation with a posterior placenta grade 2. 2. The fluid is within normal limits with amniotic fluid index 16.93 cm, MVP 5.21 cm. 3. Biophysical profile is 8/8 with good breathing movement and movement seen. 4. There has been good interval growth with the fetus currently 86 percentile. Abdominal circumference is currently 97 percentile and 2 weeks ahead. 5. There is mild bilateral renal pelvis dilation measuring 4.8 mm and 5.8 mm. Normal is considered up up to 7 mm at this stage. 6. The rest of the limited anatomical scan appears normal. Dictated by: Edgardo Alarcon MD 01/08/2025 11:21 Edgardo Alarcon MD in OV 01/08/2025 11:21
== END 2025-01-08 23:59 | disposition home or self-care (01) ==
LOC: RAD 10:30
PROVIDERS: PCP Obstetrics & Gynecology; Visit Provider Obstetrics & Gynecology
DX: O36.63X0 Maternal care for excessive fetal growth, third trimester, not applicable or unspecified (principal); Z3A.34 34 weeks gestation of pregnancy
CPT/HCPCS: 76816; 76819

== ENCOUNTER 2025-01-24 16:19 | Outpatient (CLI) | payer OTHER, SELFPAY | END 2025-01-24 23:59 | disposition home or self-care (01) | LOC: LAB.DROPOF 16:20 | PROVIDERS: PCP Obstetrics & Gynecology; Visit Provider Obstetrics & Gynecology | DX: Z34.83 Encounter for supervision of other normal pregnancy, third trimester (principal) | CPT/HCPCS: 86403 ==

== ENCOUNTER 2025-02-11 12:39 | Inpatient (IN) | payer OTHER, SELFPAY ==
[2025-02-11] VITALS (10 sets, daily range): BP systolic 122–153; BP diastolic 57–87; PULSE 80–94; RESP 16–20; TEMP 36.4–36.8; O2SAT 98–100; BMI 30.9
--- NOTE | 2025-02-11 13:04 | P.CONPHA_ITS ---
Pharmacy Intervention Comments: MEDICATION RECONCILIATION COMPLETED ON PATIENT USING EXTERNAL FILL HISTORY FROM PHARMACY AND LIST FROM CREATIVE RECRUITER OFFICE AND BEHAVIORAL HEALTH OFFICE. -MARYBEL JORGENSEN, SEJALD
--- NOTE | 2025-02-11 13:04 | HMH.PHAINT1 ---
Pharmacy Intervention Comments: MEDICATION RECONCILIATION COMPLETED ON PATIENT USING EXTERNAL FILL HISTORY FROM PHARMACY AND LIST FROM TECHNICAL SUPPORT AGENT OFFICE AND BEHAVIORAL HEALTH OFFICE. -MARYBEL JORGENSEN, SEJALD
[2025-02-11 13:38] LABS: Microscopic, Urine URINE MICROSCOPIC (MICROSCOPIC)
[2025-02-11 13:58] LABS: Basophils % 0.5 % (0.1-2.0); Eosinophils % 0.2 % (0.1-12.0); Hematocrit 31.5 % (37.0-47.0); Hemoglobin 10.2 g/dL (12.2-16.2); Lymphocytes # 1.6 K/mm3 (0.7-4.5); Lymphocytes % 18.7 % (10-50); Mean Corpuscular HGB Conc 32.4 g/dL (31.8-35.4); Mean Corpuscular Hemoglobin 27.2 pg (27.0-31.2); Mean Platelet Volume 11.2 fl (7.4-10.4); Monocytes # 0.5 K/mm3 (0.1-1.0); Neutrophils # 6.2 K/mm3 (1.8-7.8); Neutrophils % 74.1 % (37.0-80.0); Platelet Count 258 K/mm3 (142-424); Red Blood Count 3.75 M/mm3 (4.20-5.40); Red Cell Distribution Width 14.2 % (11.5-17.5); White Blood Count 8.4 K/mm3 (4.8-10.8)
[2025-02-11] MEDS: LACTATED RINGERS 1000ML 1,000 ML 500 ML IV ×2 (14:04→20:15)
[2025-02-11 14:57] LABS: Appearance,Urine Clear (Clear); Bilirubin,Urine Negative (Negative); Blood, Urine Negative (Negative); Color,Urine Yellow (Yellow); Glucose,Urine (UA) Negative (Negative); Ketones,Urine Trace (Negative); Leukocyte Esterase,Urine Negative (Negative); Nitrate,Urine Negative (Negative); Protein,Urine Negative (Negative); Urobilinogen,Urine 0.2 EU/dl (0.2)
[2025-02-11 14:58] LABS: Bacteria,Urine Trace /lpf; Mucus,Urine Trace /lpf
--- NOTE | 2025-02-11 15:27 | EXP.ANES.CKL ---
[facility] Disclaimer: The information contained in this section may have been updated after the patient was seen, as this information can be updated by other users. Medical History Incomplete miscarriage Acute blood loss anemia Miscarriage Anxiety Generalized anxiety disorder Surgical History S/P D&C (status post dilation and curettage) H/O cardiac radiofrequency ablation Hx of laparoscopy Family History Other No significant family history Social History (Updated 02/11/25 @ 13:40 by Virginia Shin RN) Smoking Status: Never smoker second hand exposure: No alcohol intake: never substance use type: denies use current occupational status: employed Travel in the last 8 weeks: None adopted: No caregiver/support person: Yes (for her kids) foster care: No household members: spouse and children housing: house lives independently: Yes marital status: number of children: 3 number of grandchildren: 0 education level: high school service: No correction: No Hx Recent Travel: No sexually active: Yes caffeine: Yes physical activity: none romi/orthodox: [employer] special romi needs: No working smoke detector in home: Yes fire extinguisher in home: Yes carbon monox detector in home: Yes firearms in home: Yes firearms unloaded and locked: Yes do you feel safe at home: Yes victim of physical abuse: No victim of emotional abuse: No victim of sexual abuse: No would you like helpful sources: No Have you lived/traveled outside [place] in past 30 days?: No Contact w/someone who lives/traveled outside US past 30 days?: No Exposure to someone with infectious disease in past 14 days?: No Do you have a fever (greater than 100.4 F or 38 C)?: No Have you tested positive for COVID-19: No Exposed to someone with COVID-19 in past 14 days?: No Do you have a sore throat?: No Do you have a cough?: No Do you have any weakness?: No Are you experiencing any nausea/vomitting?: No Do you have any diarrhea?: No Are you experiencing any unusual bleeding?: No Do you have any muscle aches/pain?: No Do you have any abdominal pain?: No Are you experiencing loss of taste or smell?: No H Anesthesia Checklist Patient Identification Patient Identification: Arm Band and Family Structural Data Admitted From: Inpatient Planned Operative Procedure/s: Labor Epidural. Consent for Planned Operative Procedure(s) Verified: Yes Verified Documents: Surgical Consent and History and Physical NPO Status Verified Time NPO: 15:30 Additional verifications Patient : Yes Anesthesia Reactions: No Hx Blood Transfusions: No Blood Transfusion Reaction: No Cephalosporin Allergy: No Previous Colonoscopy: No Airway Assessment Mallampati Score:: Class II C-Spine Mobility Assessed: Yes TMJ Mobility Assessed: Yes Dentition: Good Dentition Neurological Assessment Level of Consciousness: Awake, Alert, Appropriate and Follows Commands Hx Seizures: No Numbness or tingling in extremities: No Anesthesia Plan Anesthesia Risk discussed: Yes ASA Class: I Anesthesia Type: Epidural Preoperative Comments Pre-Operative Comments: Labor Epidural, 39 weeks, + one day gestation. In labor, 7cm cervical dilation.
[2025-02-11] MEDS: ONDANSETRON 4MG/2ML VIAL 4 MG IV (15:55)
--- NOTE | 2025-02-11 17:34 | P.HP_ITS ---
History of Present Illness *Admission Date: 02/11/25 *Reason for visit:: Active labor *History of present illness: Esmer Thompson is a 29-year-old at 39 weeks and 1 days gestation who presented to labor and delivery with regular painful contractions. Her has been uncomplicated. On presentation patient endorsed good movement and denies any leakage of fluid or vaginal bleeding. O+, antibody negative, rubella immune, hepatitis B negative, hepatitis C negative, RPR negative, HIV negative 1 hour GTT: 142. Followed by accucheck which were appropriate GBS negative PFSH PFS Disclaimer: The information contained in this section may have been updated after the patient was seen, as this information can be updated by other users. Medical History Incomplete miscarriage Acute blood loss anemia Miscarriage Anxiety Generalized anxiety disorder Surgical History S/P D&C (status post dilation and curettage) H/O cardiac radiofrequency ablation Hx of laparoscopy Family History Other No significant family history Social History (Updated 02/11/25 @ 13:40 by Virginia Shin RN) Smoking Status: Never smoker second hand exposure: No alcohol intake: never substance use type: denies use current occupational status: employed Travel in the last 8 weeks: None adopted: No caregiver/support person: Yes (for her kids) foster care: No household members: spouse and children housing: house lives independently: Yes marital status: number of children: 3 number of grandchildren: 0 education level: high school service: No prison: No Hx Recent Travel: No sexually active: Yes caffeine: Yes physical activity: none romi/hinduism: [employer] special romi needs: No working smoke detector in home: Yes fire extinguisher in home: Yes carbon monox detector in home: Yes firearms in home: Yes firearms unloaded and locked: Yes do you feel safe at home: Yes victim of physical abuse: No victim of emotional abuse: No victim of sexual abuse: No would you like helpful sources: No Have you lived/traveled outside US in past 30 days?: No Contact w/someone who lives/traveled outside US past 30 days?: No Exposure to someone with infectious disease in past 14 days?: No Do you have a fever (greater than 100.4 F or 38 C)?: No Have you tested positive for COVID-19: No Exposed to someone with COVID-19 in past 14 days?: No Do you have a sore throat?: No Do you have a cough?: No Do you have any weakness?: No Are you experiencing any nausea/vomitting?: No Do you have any diarrhea?: No Are you experiencing any unusual bleeding?: No Do you have any muscle aches/pain?: No Do you have any abdominal pain?: No Are you experiencing loss of taste or smell?: No Other Medical History Have you received the Flu Vaccine for this season: Yes Have you received the Pneumonia Vaccine: No Review of Systems Review of Systems Review of systems (narrative): Review of Systems Constitutional: Denies fever, chills, and sweats Eyes: Denies vision change/ pain Respiratory: Denies cough and shortness of breath Cardiovascular: Denies chest pain and lightheadedness Gastrointestinal: Admits abdominal pain with contractions. Denies nausea, vomiting. Genitourinary: Denies dysuria and incontinence Musculoskeletal: Denies shoulder pain and back pain Neurological: Denies change in speech or headaches Meds Home Medications and Allergies Home Medications ?Medication ?Instructions ?Recorded ?Confirmed ?Type vits no.126-ferrous fum 1 tab PO DAILY 06/28/24 02/11/25 History 28 mg iron-folic acid 800 mcg tablet (Classic ) fluoxetine 20 mg capsule (Prozac) 20 mg PO DAILY #30 caps 12/30/24 02/11/25 Rx pantoprazole 40 mg tablet,delayed 40 mg PO DAILY #30 tabs 01/24/25 02/11/25 Rx release New Prescriptions to Start Prescriptions: Allergies Allergy/AdvReac Type Severity Reaction Status Date / Time No Known Allergies Allergy Verified 02/06/25 11:15 Exam Data for Last 24 hours Vital signs and Labs for Last 24 Hours: Temp Pulse Resp BP Pulse Ox O2 Del Method 98.3 F 80 18 153/87 H 100 Room Air 02/11/25 13:35 02/11/25 13:35 02/11/25 13:35 02/11/25 13:35 02/11/25 13:35 02/11/25 13:35 Laboratory Results - last 24 hr 02/11/25 12:29: Urine Color Yellow, Urine Appearance Clear, Urine pH 6.0, Ur Specific [place] 1.020, Urine Protein Negative, Urine Glucose (UA) Negative, Urine Ketones Trace, Urine Blood Negative, Urine Nitrate Negative, Urine Bilirubin Negative, Urine Urobilinogen 0.2, Ur Leukocyte Esterase Negative, Urine RBC None, Urine WBC 3-5, Ur Squamous Epith Cells 10-20, Urine Bacteria Trace, Urine Mucus Trace 02/11/25 12:45: WBC 8.4, RBC 3.75 L, Hgb 10.2 L, Hct 31.5 L, MCV 84.0, MCH 27.2, MCHC 32.4, RDW 14.2, Plt Count 258, MPV 11.2 H, Neut % (Auto) 74.1, Lymph % (Auto) 18.7, [place] % (Auto) 6.0, Eos % (Auto) 0.2, Baso % (Auto) 0.5, Neut # (Auto) 6.2, Lymph # (Auto) 1.6, [place] # (Auto) 0.5, Eos # (Auto) 0.0, Baso # (Auto) 0.0, Blood Type O Positive, Antibody Screen Negative I & O for Last 24 hours: Intake & Output 02/08/25 02/09/25 02/10/25 02/11/25 23:59 23:59 23:59 23:59 Weight 164 lb Narrative: General: patient is alert oriented in no acute distress and responds appropriately to questions. HEENT: NCAT, EOMI, moist mucous membranes, neck supple with full ROM Cardiovascular: RRR +S1/S2, no murmurs or rubs Pulmonary: Clear to auscultation bilaterally, nonlabored breathing, symmetric chest rise Abdominal: Gravid abdomen appropriate for gestation. No guarding, rebound, or tenderness noted. Extremities: trace edema, no tenderness or cyanosis noted Skin: Normal turgor, intact, warm. Negative for erythema, pallor, petechia, or lesions Neurologic: Negative for sensory or motor deficit Psychiatric: Normal affect, normal thought process, good judgment and insight, no depression or anxious mood appreciated. *Routine HEENT Exam Head: Present normocephalic and atraumatic Eye: Present EOMI, PERRL and normal accommodation; Absent conjunctival icterus, scleral injection, nystagmus or exophthalmos ENT: Present mucous membranes moist *Routine Respiratory Exam Respiratory: Present CTA bilaterally, normal respiratory effort, able to speak in complete sentences and symmetric chest movement; Absent accessory muscle use, decreased breath sounds, rales, respiratory distress, wheezes, distant breath sounds or diminished air movement *Routine Cardiovascular Exam Cardiovascular: Present RRR, Normal S1 and Normal S2; Absent murmur or gallop *Routine Abdominal Exam Abdominal: Present soft and normoactive bowel sounds; Absent tenderness, distend ed, rebound or guarding *Routine Rectal Exam Rectal:: deferred *Routine Genitalia Exam Genitalia:: normal female Assessment and Plan *Assessment and plan (1) Active labor at term: Status: Acute Category: Medical Plan - Monitor vitals - Admit to L&D for labor monitoring and delivery - Plan for augmentation of labor with AROM and pitocin if required. - External FHR and TOCO monitor - Exam on admission: -2 - GBS neg/ Blood type: O+ - Hemoglobin: 10.2, Plt: 258 - Plan for epidural anesthesia - Anticipate vaginal delivery infant, surprise gender After 5 hours made change to 9 cm. AROM completed with and mom tolerating well.
--- NOTE | 2025-02-11 20:18 | P.PN_ITS ---
Labor Note Subjective: Date: 02/11/25 Time: 20:18 urge to push and regular contraction Objective: Cervical Dilation:: 9-10 Effacement:: 100% Station: -2 Membranes: ruptured Fetus: Monitoring?: Yes monitoring type:: External Assessment: Labor progressing?: No Cephalopelvic disproportion?: Yes Plan: Anesthesia for epidural?: Yes Continue to labor down?: No Plan for ?: Yes Continue to monitor?: Yes Additional information:: Patient has been put in for greater than an hour with no descent of the . heart rate tracing is losing variability as well as having recurrent variable and late decelerations to the 60s. Patient reports that she is exh austed, unable to push, and feels like the is stuck on something and not coming out. feels like it is in the OT position, manual rotation attempted x 3 with success but ultimately rotated back to OT. In the hour there was absolutely no descent of the infant and we attempted to push in several different positions including hands and knees, attempted tug-of-war, close knee and close ankle pushing. Discussed the risk of bleeding, infection injury to the surrounding structures. Patient consented to blood transfusion to medically necessary. Reviewed the rare risk of hysterectomy if bleeding is unable to be controlled. The patient has no allergies and will receive 2g of Ancef and 500mg of IV azithromycin preoperatively. She will receive a vaginal prep. Reviewed the risk of injury to surrounding structures including the bowel, bladder, reproductive organs, and neurovascular bundles. discussed risks of VTE, anesthesia and . Discussed that if complication occurred it could prolong surgery, require additional surgeries or require transfer to a tertiary care center. Patient voiced understanding. Patient and significant other voiced understanding desire to proceed
[2025-02-11] MEDS: AZITHROMYCIN 500 MG in 0.9 % SODIUM CHLORIDE 250 ML 250 MG IV (20:24)
[2025-02-11] MEDS: CEFAZOLIN SODIUM 2 GM in 0.9 % SODIUM CHLORIDE 100 ML IV ×2 (20:24→22:43)
[2025-02-11 20:58] LABS: Cord Blood PH 7.17 (7.35-7.45)
--- NOTE | 2025-02-11 22:18 | P.OP_ITS ---
Date of procedure: 02/11/25 Pre-op Diagnosis:: 1. 39 completed weeks gestation, [place] 2. Active Labor 3. Failure to Descend 4. Nonreassuring heart tones Post-op Diagnosis:: 1. 39 completed weeks gestation, [place] 2. Active Labor 3. Failure to Descend 4. Nonreassuring heart tones 5. hemorrhage Procedure performed:: Primary Delivery Surgeon:: Shawna Giordano DO Telephone Exchange Operator(s):: Dr. Manzano DIGITAL COMPUTER SYSTEMS ANALYST:: Will Potts and Jorge Rosales Anesthesia: epidural Estimated blood loss (mL): 2,600 Clinical Note:: Esmer Thompson is a 29-year-old at 39 weeks and 1 days who presented in active labor. She progressed to complete on her own and pushed for 1 hour. At the end of an hour she was exhausted and there was no descent appreciated. The heart rate tracing had progressed to category two while pushing with recurrent variable and late decelerations and loss of variability. At that time given no descent and a -1 to -2 station decision was made to proceed with delivery. Operative findings:: 1. Live viable male infant. Weight: 8pounds 2ounces. Apgars 7 and 8 at 1 and 5 minutes respectively 2. Normal-appearing fallopian tubes and ovaries bilaterally 3. Cervical and Vaginal extension of hysterotomy. 4. Laceration of the left broad ligament and uterine sidewall Operative note:: Medications: 2 g of Ancef, 500mg IV Azithromycin, 1g TXA Summary: Procedure explained in its entirety. The patient was counseled on the risks and benefits of section including bleeding, vascular injury, infection, and injury to the surrounding structures. Hemorrhage requiring life saving blood transfusion resulting in blood born viral infection or allergic reaction was explained and the patient consented to blood transfusion. Possible need for further operative measures prolonging recovery time and hospitalization reviewed to include hysterectomy. Procedure explained in its entirety and patient had no further questions. Consented to procedure. The patient was taken back to the operating room where epidural anesthesia was noted to be adequate. Pneumatic compression stockings applied to lower extremities. Ancef 2g and azithromycin were administered for infection prophylaxis. She was placed in the dorsal supine position Urinary catheter was placed and found to be draining red-tinged urine. The patient was prepped and draped in sterile fashion. Anesthesia was tested and and found to be adequate. A Pfannenstiel skin incision was made with the scalpel. Subcutaneous bleeding vessels were cauterized with the bovie. The incision was taken down to the fascia with the bovie. The fascia was knicked in the midline and sharply extended laterally. The superior aspect of the fascia was grasped with Tim clamps and the rectus muscle was taken down with the Bovie. The rectus muscle was sharply dissected from the midline with Mayos. This process was repeated inferiorly. The rectus muscles were in the midline, peritoneum was identified and entered bluntly. Campbell O retractor was placed and the bladder was noted to be out of the operative field. A bladder flap was created with Metzenbaum scissors and Mal[place]ian pickups. The lower uterine segment was easily identified, given the patient was in labor decision was made to go slightly above the very thin lower uterine segment. Hysterotomy was made and entered bluntly with the surgeon's index finger. Incision was then extended in a superior and inferior fashion by blunt separation. Membranes were ruptured revealing clear fluid. The fetus was in cephalic presentation. The presenting anterior shoulder immediately delivered and was unable to be reduced secondary to atonic uterine contraction. A hand below was used to assist in elevating the head of the pelvis. The head was carefully elevated out of the pelvis. Fundal pressure was applied when head was brought into incision. The infants head was delivered. The shoulder and body followed without complication. Delivery occurred at 2041. The umbilical cord was clamped and cut. Infant was taken to warmer for evaluation by the nurses director. Cord blood and cord gasses were collected. The placenta was delivered via fundal massage. IV Pitocin was initiated. Inside of the uterus was gently cleared of blood and clots with lap sponge. At this time there was a copious amount of bleeding and the extensions were noted to be significant. Decision was made to give TXA. The apex of the hysterotomy was identified and grasped with Allis and ring forceps. There was noted to be significant extension through the cervix and into the vagina. There is noted to be separation of the broad ligament and the left lateral uterine sidewall. The hysterotomy was closed with 0 Vicryl in a running locked fashion. This significantly slowed the bleeding however there was still a significant amount of bleeding in the cervical laceration and anterior vaginal wall. This was reapproximated and made hemostatic with several ognmbc-da-dplqa's and running locking sutures using #1 Vicryl. The left uterine sidewall extended inferiorly and was bleeding very proximal to the bladder. This bleeding was so copious that it was difficult to identify the source of bleeding even with the suction. Taqpyu-ni-ddjyt was placed which slowed the bleeding and helped identify where it was originating from. A second trqhix-cq-rabed was used to make this hemostatic. 2-minute timer was set and there is noted to be additional bleeding from the left uterine sidewall. This was again made hemostatic with a [id number]-[id number] stitch. The bladder was backfilled with sterile milk and no excrescences of sterile milk was noted in the operative field. The bladder danielle were suspected to be intact. There was a stitch that was very close to the left side of the bladder dome. No leakage was noted. The 2-minute timer was again set and following that the lower uterine segment was visualized and noted to be hemostatic. The ovaries and tubes were found to be normal. The posterior aspect of the uterus was cleared of blood clot with a damp lap sponge. Throughout all of this the uterus remained firm. She received 1 unit of packed red blood cells with close monitoring for any additional needs. The gutters were inspected bilaterally and cleared of blood and clots with lap sponges. The uterine incision was reinspected and hemostasis noted. Campbell O retractor was removed. An additional 2-minute timer was set and hemostasis was noted from the repair site. Gelfoam was placed for prophylactic hemostasis. The peritoneum was reapproximated using a 2-0 Monocryl in a nonlocked running fashion. The fascia was closed in a running nonlocked fashion using 0 PDS. Fascia was noted as not having gaps or defects. The subcutaneous fat was closed with 2-0 Monocryl interrupted sutures x3. Skin was closed with the INSORB suture in a subcuticular fashion. Patient tolerated the procedure well and all counts were correct x3, per nursing. Patient will receive tap blocks and then be transported to the OB PACU for recovery and infant bonding. Condition: stable Disposition: PACU Specimens:: Live viable male Placenta Cord gases Complications:: Intraoperative hemorrhage
--- NOTE | 2025-02-11 22:18 | P.PNANES_ITS ---
[facility] Anesthesia Record Part I Anesthesia Record I Intake, IV Amount: 1,900 Hydration: Adequate Estimated blood loss (mL): 2,000 Urine output (mL): 0 Blood Products used (#): PRBC's Blood Pressure: 131/62 SaO2: 98 Pulse Rate: 94 Airway Patency: Patent Respiratory Rate: 20 Temperature: 97.5 F Patient is:: Awake and Stable Stable to PACU at:: 22:09
[2025-02-11] MEDS: OXYTOCIN/RINGERS LACTATE 30 UNITS/500 ML BAG 999 UNITS IV (22:20)
[2025-02-11] MEDS: OXYTOCIN/RINGERS LACTATE 30 UNITS/500 ML BAG 40 UNITS IV (22:43)
--- NOTE | 2025-02-11 22:44 | SUR.OPER ---
Emergent Release Blood Documentation 2029 Product unit number: [id number] start- 2031 end- 2049 volume inf- 250ml pre- 109/72, 16rr, 96o2, 98 pulse, temp 97.8 start- 115/67, 16rr, 98o2, 93 pulse, temp 97.9 5min- 113/68, 16rr, 98o2, 94 pulse, temp 97.9 10min- 113/71, 16rr, 98o2, 95 pulse, temp 97.9 end- 115/72, 16rr, 98o2, 96 pulse, temp 97.9
--- NOTE | 2025-02-11 22:50 | PC.NURSE ---
1 hour post blood transfusion vitals: 144/68, HR 80, O2 100%, Temp 98.2 axillary, and RR 17
--- NOTE | 2025-02-11 22:51 | SUR.OPER ---
2030- All blood products administered and monitored by fransico Espinoza
[2025-02-11] MEDS: OXYCODONE 5MG IMMEDIATE RELEASE TABLET 5 MG PO (22:58)
--- NOTE | 2025-02-11 23:05 | SUR.PHASEI ---
5258- Dr. Giordano notified of blood loss being 2687. Qbl protocol initiated. Additional 20g IV in right AC 2 units of PRBC's on hold No methergine ordered per Dr. Giordano q5min vitals done in PACU period. No additional orders at this time
[2025-02-12] MEDS: HYDROMORPHONE 2MG/ML SYRINGE 2 MG IV ×4 (00:31→21:59)
[2025-02-12] MEDS: ACETAMINOPHEN 500MG TAB 1000 MG PO ×4 (00:39→17:04)
[2025-02-12 00:45] VITALS: BP 146/69; PULSE 75; RESP 16; TEMP 36.3; O2SAT 96
[2025-02-12 03:44] VITALS: BP 144/72; PULSE 92; RESP 19; TEMP 36.6; O2SAT 98
[2025-02-12] MEDS: LACTATED RINGERS 1000ML 1,000 ML 125 ML IV (04:10)
[2025-02-12] MEDS: OXYCODONE 5MG IMMEDIATE RELEASE TABLET 5 MG PO ×4 (04:10→17:04)
--- NOTE | 2025-02-12 04:10 | PC.NURSE ---
Unknown amount of formula visualized in urine output. MD filled bladder with sterile formula during procedure
[2025-02-12] MEDS: CEFAZOLIN SODIUM 2 GM in 0.9 % SODIUM CHLORIDE 100 ML IV ×2 (06:27→14:27)
[2025-02-12 06:46] LABS: Lymphocytes # 1.5 K/mm3 (0.7-4.5); Monocytes # 0.8 K/mm3 (0.1-1.0); Red Cell Distribution Width 14.2 % (11.5-17.5)
[2025-02-12 07:10] LABS: Basophils % 0.2 % (0.1-2.0); Mean Corpuscular HGB Conc 32.4 g/dL (31.8-35.4); Mean Corpuscular Hemoglobin 27.6 pg (27.0-31.2); Mean Corpuscular Volume 85.3 fl (81-99); Mean Platelet Volume 11.2 fl (7.4-10.4); Monocytes % 5.7 % (1.7-9.3); Neutrophils # 11.1 K/mm3 (1.8-7.8); Neutrophils % 82.7 % (37.0-80.0); Platelet Count 201 K/mm3 (142-424); Red Blood Count 2.93 M/mm3 (4.20-5.40); White Blood Count 13.4 K/mm3 (4.8-10.8)
[2025-02-12] MEDS: hydrOXYzine pamoate 25MG CAPSULE 50 MG PO (07:19)
[2025-02-12 07:22] LABS: Hemoglobin 8.1 g/dL (12.2-16.2)
[2025-02-12] MEDS: FLUOXETINE 20MG CAPSULE 20 MG PO (08:31)
--- NOTE | 2025-02-12 10:35 | EXP.ACUTE.PN ---
Subjective *Date: 02/12/25 *Time: 10:35 Interval history: She seems to be doing well this morning. She is putting out a good amount of urine. Her pain is well-controlled. Her hemoglobin dropped to 8.1 and we will get another set of blood counts later on this afternoon to decide whether we need to give her another unit of blood. Her vital signs are stable otherwise. Her lochia is normal. Medical Exam Vital signs and Labs for Last 24 Hours: Vital Signs Temp Pulse Pulse Resp BP BP Pulse Ox 02/12/25 03:44 97.9 F 92 H 19 144/72 H 98 02/12/25 00:45 97.3 F L 75 16 146/69 H 96 02/11/25 22:50 98.2 F 80 17 144/68 H 100 02/11/25 22:39 97.9 F 83 16 133/70 98 02/11/25 22:34 97.9 F 92 H 16 139/70 98 02/11/25 22:29 97.9 F 91 H 16 140/71 98 02/11/25 22:24 97.9 F 89 16 134/62 98 02/11/25 22:21 97.5 F L 94 H 20 131/62 02/11/25 22:19 97.9 F 84 16 133/67 98 02/11/25 22:14 97.9 F 90 16 122/57 L 98 02/11/25 22:09 97.9 F 93 H 16 131/62 98 02/11/25 13:35 98.3 F 80 18 153/87 H 100 O2 Del Method 02/12/25 03:44 Room Air 02/12/25 00:45 Room Air 02/11/25 22:50 Room Air 02/11/25 22:39 Room Air 02/11/25 22:34 Room Air 02/11/25 22:29 Room Air 02/11/25 22:24 Room Air 02/11/25 22:21 02/11/25 22:19 Room Air 02/11/25 22:14 Room Air 02/11/25 22:09 Room Air 02/11/25 13:35 Room Air Intake and Output 02/11/25 02/12/25 02/12/25 19:59 03:59 11:59 Intake Total 1900 / 2565 665 / 2565 Output Total 425 / 425 Balance 1900 / 2140 240 / 2140 Intake: Intake, Oral Amount 120 / 120 Intake, Total IV Amount 1900 / 2445 545 / 2445 Cefazolin Sodium 2 gm In 0.9 % 100 / 100 Sodium Chloride 100 ml @ 200 mls/hr IV Q8H [facility] Rx#:[id number] Oxytocin/Ringers Lactate 30 445 / 445 units In 500 ml @ 40 mls/hr IV .[id number] Rx#:[id number] Output: Output, Urine Amount 425 / 425 Other: Weight 164 lb Patient Weight 02/12/25 11:59 Weight 164 lb Laboratory Results - last 24 hr 02/11/25 12:29: Urine Color Yellow, Urine Appearance Clear, Urine pH 6.0, Ur Specific [place] 1.020, Urine Protein Negative, Urine Glucose (UA) Negative, Urine Ketones Trace, Urine Blood Negative, Urine Nitrate Negative, Urine Bilirubin Negative, Urine Urobilinogen 0.2, Ur Leukocyte Esterase Negative, Urine RBC None, Urine WBC 3-5, Ur Squamous Epith Cells 10-20, Urine Bacteria Trace, Urine Mucus Trace 02/11/25 12:45: WBC 8.4, RBC 3.75 L, Hgb 10.2 L, Hct 31.5 L, MCV 84.0, MCH 27.2, MCHC 32.4, RDW 14.2, Plt Count 258, MPV 11.2 H, Neut % (Auto) 74.1, Lymph % (Auto) 18.7, [place] % (Auto) 6.0, Eos % (Auto) 0.2, Baso % (Auto) 0.5, Neut # (Auto) 6.2, Lymph # (Auto) 1.6, [place] # (Auto) 0.5, Eos # (Auto) 0.0, Baso # (Auto) 0.0, Blood Type O Positive, Antibody Screen Negative, Crossmatch (AHG) See Detail 02/11/25 20:52: Cord ABG pH 7.17 L* 02/12/25 06:30: WBC 13.4 H D, RBC 2.93 L, Hgb 8.1 L D, Hct 25.0 L, MCV 85.3, MCH 27.6, MCHC 32.4, RDW 14.2, Plt Count 201, MPV 11.2 H, Neut % (Auto) 82.7 H, Lymph % (Auto) 11.0, [place] % (Auto) 5.7, Eos % (Auto) 0.0 L, Baso % (Auto) 0.2, Neut # (Auto) 11.1 H, Lymph # (Auto) 1.5, [place] # (Auto) 0.8, Eos # (Auto) 0.0, Baso # (Auto) 0.0 I & O for Labs for Last 24 Hours: Intake & Output 02/09/25 02/10/25 02/11/25 02/12/25 11:59 11:59 11:59 11:59 Intake Total 2565 / 2565 Output Total 425 / 425 Balance 2140 / 2140 Weight 164 lb Head: Present atraumatic Neck: Present normal inspection Respiratory: Present normal respiratory effort; Absent accessory muscle use Rectal (female): Present deferred (female): Present deferred Assessment and Plan *Assessment and plan (1) anemia: Status: Acute Category: Medical Code(s): O90.81 - Anemia of the puerperium (2) delivery delivered: Status: Acute Category: Medical Code(s): O82 - Encounter for delivery without indication (3) pelvic disproportion delivered: Status: Acute Category: Medical Code(s): O33.9 - Maternal care for disproportion, unspecified (4) heart rate decelerations affecting management of mother: Status: Acute Category: Medical Code(s): O36.8390 - Maternal care for abnormalities of the heart rate or rhythm, unspecified trimester, not applicable or unspecified Plan She seems to be doing very well this morning. She is afebrile. She is eating and drinking and ambulating. She seems to be putting out a good amount of urine. Her lochia is normal. We will plan to repeat her blood work later on this afternoon and if the hemoglobin goes below 8 then we will consider another unit of blood. We have increased her diet to full fluids and she does admit to being hungry. I have also asked that the nurses give her chewing gum to help with her bowels as well. She has good bowel sounds.
--- NOTE | 2025-02-12 10:35 | EXP.ANES.II ---
[facility] Anesthesia Record Part II Anesthesia Record Part II Discharge Time: 22:39 Destination: Obstetric PACU nurse assessment reviewed?: Yes Patient Condition:: Good Anesthesia Complications:: None Swallowing reflex intact?: Yes Airway Patency: Patent Cyanosis?: No Blood Pressure: 133/70 SaO2: 98 Respiratory Rate: 16 Pulse Rate: 83 Temperature: 97.9 F Mental Status: Alert & Oriented Pain level:: 0 Nausea and/or vomitting:: None Intake, IV Amount: 0 Hydration: Adequate
[2025-02-12 10:36] VITALS: BP 133/70; PULSE 83; RESP 16; TEMP 36.6; O2SAT 98
[2025-02-12 15:31] LABS: Hematocrit 24.2 % (37.0-47.0); Hemoglobin 8.2 g/dL (12.2-16.2)
[2025-02-12 20:26] VITALS: BP 130/64; PULSE 82; RESP 16; TEMP 37; O2SAT 99
[2025-02-12] MEDS: SENNA 8.6MG TABLET 8.6 MG PO (20:26)
[2025-02-12] MEDS: NITROFURANTOIN 100MG CAPSULE 100 MG PO (20:26)
[2025-02-12] MEDS: ZOLPIDEM TARTRATE 5 MG TABLET PO (22:03)
[2025-02-12] MEDS: LANOLIN CREAM 40GM TP (22:04)
[2025-02-13] VITALS (12 sets, daily range): BP systolic 127–151; BP diastolic 57–83; PULSE 77–94; RESP 15–18; TEMP 36.6–37.4; O2SAT 94–100
[2025-02-13 00:32] LABS: RPR W/RFX Titers Nonreactive (Nonreactive)
[2025-02-13] MEDS: HYDROMORPHONE 2MG/ML SYRINGE 2 MG IV (02:44)
[2025-02-13] MEDS: ACETAMINOPHEN 500MG TAB 1000 MG PO ×3 (02:44→16:32)
[2025-02-13] MEDS: SIMETHICONE 80MG CHEWABLE TABLET 160 MG PO ×2 (05:31→21:21)
[2025-02-13 05:32] LABS: Basophils % 0.2 % (0.1-2.0); Eosinophils # 0.2 K/mm3 (0.0-0.4); Eosinophils % 1.3 % (0.1-12.0); Hematocrit 23.1 % (37.0-47.0); Hemoglobin 7.8 g/dL (12.2-16.2); Lymphocytes # 1.5 K/mm3 (0.7-4.5); Lymphocytes % 11.4 % (10-50); Mean Corpuscular HGB Conc 33.8 g/dL (31.8-35.4); Mean Corpuscular Hemoglobin 28.5 pg (27.0-31.2); Mean Corpuscular Volume 84.3 fl (81-99); Mean Platelet Volume 10.5 fl (7.4-10.4); Monocytes # 0.7 K/mm3 (0.1-1.0); Neutrophils % 81.4 % (37.0-80.0); Platelet Count 217 K/mm3 (142-424); Red Blood Count 2.74 M/mm3 (4.20-5.40); Red Cell Distribution Width 14.7 % (11.5-17.5); White Blood Count 13.5 K/mm3 (4.8-10.8)
[2025-02-13 05:48] LABS: Albumin Level 2.6 g/dl (3.5-5.0); Chloride 104 mmol/L (98-107); Potassium 3.2 mmoL/L (3.5-5.1); Sodium 131 mmol/L (136-145)
[2025-02-13 05:50] LABS: Blood Urea Nitrogen 5 mg/dl (7-17); Creatinine Clearance Estimated 319 mL/min (50-200); Estimated Glomerular Filt Rate 259 ml/min (>60); GFR (African American) 314 ML/MIN (>60)
[2025-02-13 05:51] LABS: Alanine Aminotransferase 14 U/L (12-78); Albumin/Globulin Ratio 1.1 (1.1-1.8); Alkaline Phosphatase 127 U/L (38-126); Anion Gap 5.2 mEq/L (5-15); Aspartate Amino Transferase 28 U/L (14-36); Bilirubin,Total 0.2 mg/dl (0.2-1.3); Calcium 7.9 mg/dl (8.4-10.2); Carbon Dioxide 25 mmol/L (22.0-30.0); Globulin 2.4 g/dL (1.3-3.2); Glucose 98 mg/dl (74-100)
[2025-02-13] MEDS: OXYCODONE 5MG IMMEDIATE RELEASE TABLET 5 MG PO ×3 (06:17→14:39)
[2025-02-13 09:10] LABS: Magnesium 1.7 mg/dl (1.6-2.3)
[2025-02-13] MEDS: POTASSIUM CHLORIDE 20MEQ TAB 40 MEQ PO ×2 (09:22→13:22)
[2025-02-13] MEDS: FLUOXETINE 20MG CAPSULE 20 MG PO (09:23)
[2025-02-13] MEDS: NITROFURANTOIN 100MG CAPSULE 100 MG PO ×2 (09:23→21:21)
[2025-02-13] MEDS: SENNA 8.6MG TABLET 8.6 MG PO ×2 (09:23→21:21)
[2025-02-13] MEDS: MAGNESIUM SULFATE IN WATER 2 GM/50 ML PIGGYBACK IV ×2 (10:09→11:03)
--- NOTE | 2025-02-13 13:54 | EXP.PN ---
Subjective *Date: 02/13/25 *Time: 13:54 Interval history: Esmer Thompson is a G8, P4044 day #2 following a primary low-transverse delivery secondary to failure progress. was uncomplicated. Delivery was complicated by hemorrhage. She is doing well, and was standing and bathing the infant this morning. -Reports pain is much better controlled. She is transition to p.o. pain medicine -Reports she is tolerating p.o. without nausea or vomiting. -Reports her lochia is scant. -Desires to use vasectomy for contraception -She is breast-feeding her male infant -Ambulating without difficulty. Denies chest pain shortness of breath or pain in her legs. No further complaints at this time. Exam Data for Last 24 hours Vital signs and Labs for Last 24 Hours: Temp Pulse Resp BP Pulse Ox O2 Del Method 99.3 F 85 15 127/61 94 L Room Air 02/13/25 03:27 02/13/25 03:27 02/13/25 03:27 02/13/25 03:27 02/13/25 03:27 02/13/25 03:27 Laboratory Results - last 24 hr 02/11/25 12:45: RPR w/Rflx to Titer Nonreactive, Blood Type O Positive, Antibody Screen Negative, Crossmatch (AHG) See Detail 02/12/25 15:03: Hgb 8.2 L, Hct 24.2 L 02/13/25 05:23: WBC 13.5 H, RBC 2.74 L, Hgb 7.8 L, Hct 23.1 L, MCV 84.3, MCH 28.5, MCHC 33.8, RDW 14.7, Plt Count 217, MPV 10.5 H, Neut % (Auto) 81.4 H, Lymph % (Auto) 11.4, [place] % (Auto) 5.0, Eos % (Auto) 1.3, Baso % (Auto) 0.2, Neut # (Auto) 11.0 H, Lymph # (Auto) 1.5, [place] # (Auto) 0.7, Eos # (Auto) 0.2, Baso # (Auto) 0.0, Sodium 131 L, Potassium 3.2 L, Chloride 104, Carbon Dioxide 25, Anion Gap 5.2, BUN 5 L, Creatinine 0.30 L, Estimated Creat Clear 319 H, Estimated GFR 259, Est GFR ( Amer) 314, Glucose 98, Calcium 7.9 L, Magnesium 1.7, Total Bilirubin 0.2, AST 28, ALT 14, Alkaline Phosphatase 127 H, Total Protein 5.0 L D, Albumin 2.6 L, Globulin 2.4, Albumin/Globulin Ratio 1.1 I & O for Last 24 hours: Intake & Output 02/10/25 02/11/25 02/12/25 02/13/25 23:59 23:59 23:59 23:59 Intake Total 1900 / 1900 665 / 665 Output Total 900 / 900 675 / 675 Balance 1900 / 1900 -235 / -235 -675 / -675 Weight 164 lb Narrative: General: patient is alert oriented in no acute distress and responds appropriately to questions. Appears to be in minimal pain. Sitting up in the chair and doing well HEENT: NCAT, EOMI, moist mucous membranes, neck supple with full ROM Cardiovascular: RRR +S1/S2, no murmurs or rubs Pulmonary: Clear to auscultation bilaterally, nonlabored breathing, symmetric chest rise Abdominal: Fundus at the umbilicus, firm, and tenderness appropriate for the period. Extremities: trace edema, no tenderness or cyanosis noted Skin: Normal turgor, intact, warm. Negative for erythema, pallor, petechia, or lesions Neurologic: Negative for sensory or motor deficit Psychiatric: Normal affect, normal thought process, good judgment and insight, no depression or anxious mood appreciated. Constitutional Constitutional: no acute distress *Routine HEENT Exam Head: Present normocephalic Eye: Present EOMI and PERRL ENT: Present mucous membranes moist *Routine Neck Exam Neck: Present supple; Absent lymphadenopathy *Routine Respiratory Exam Respiratory: Present CTA bilaterally *Routine Cardiovascular Exam Cardiovascular: Present RRR *Routine Abdominal Exam Abdominal: Present soft and normoactive bowel sounds; Absent tenderness *Routine Extremities Exam Extremities: Absent cyanosis, clubbing or edema *Routine Skin Exam Skin: Present warm; Absent rash *Routine Neurological Exam Neurological: Present alert and oriented X3 Assessment and Plan *Assessment and plan (1) delivery delivered: Status: Acute Category: Medical Code(s): O82 - Encounter for delivery without indication (2) anemia: Status: Acute Category: Medical Code(s): O90.81 - Anemia of the puerperium (3) Hypomagnesemia: Status: Acute Category: Medical Code(s): E83.42 - Hypomagnesemia (4) Hypokalemia: Status: Acute Category: Medical Code(s): E87.6 - Hypokalemia (5) hemorrhage: Status: Acute Qualifiers: hemorrhage type: other immediate Qualified Code(s): O72.1 - Other immediate hemorrhage Category: Medical Code(s): O72.1 - Other immediate hemorrhage Plan Stable. POD#1 s/p PLTCS -Doing well. VSS. Serial lochia and fundal checks. -Continue with perineal ice packs for discomfort -, male infant -Contraception: Vasectomy -Follow-up 2 weeks for routine visit -Dispo: home in 1-3 days pending mother/infant status -We will leave christiansen catheter in place x4-5 days out of extreme caution/ prophylaxis. There was no cystotomy noted at time of surgery. #Hypomagnesemia #Hypokalemia -Replace electrolytes per protocol and recheck in the morning # hemorrhage -Hemoglobin: 8.2--> 7.8 - asymptomatic anemia noted. Vitals stable. Continue monitoring. DC with Fe -O+/antibody negative -S/p 1unit PRBCS intraoperative -Will give an additional unit of PRBCs today
[2025-02-13] MEDS: ONDANSETRON 4MG/2ML VIAL 4 MG IV (14:45)
[2025-02-13] MEDS: PRENATAL MULTIVITAMIN W/IRON 1 EACH PO (16:33)
--- NOTE | 2025-02-13 16:40 | PC.NURSE ---
IV leaking in LAC, d/c'd, cath intact
[2025-02-13] MEDS: OXYCODONE 5MG IMMEDIATE RELEASE TABLET 10 MG PO ×2 (17:14→21:20)
[2025-02-13 19:18] LABS: Hematocrit 26.9 % (37.0-47.0); Hemoglobin 8.8 g/dL (12.2-16.2)
[2025-02-14] MEDS: ACETAMINOPHEN 500MG TAB 1000 MG PO ×3 (01:20→15:01)
[2025-02-14] MEDS: OXYCODONE 5MG IMMEDIATE RELEASE TABLET 10 MG PO ×3 (01:21→15:02)
[2025-02-14 04:45] VITALS: BP 132/62; PULSE 69; RESP 17; TEMP 36.7
[2025-02-14 06:11] LABS: Basophils # 0.1 K/mm3 (0-0.2); Basophils % 0.6 % (0.1-2.0); Eosinophils # 0.2 K/mm3 (0.0-0.4); Eosinophils % 1.8 % (0.1-12.0); Hemoglobin 8.4 g/dL (12.2-16.2); Lymphocytes # 1.9 K/mm3 (0.7-4.5); Lymphocytes % 18.6 % (10-50); Mean Corpuscular HGB Conc 32.3 g/dL (31.8-35.4); Mean Corpuscular Volume 83.6 fl (81-99); Monocytes # 0.7 K/mm3 (0.1-1.0); Neutrophils # 7.4 K/mm3 (1.8-7.8); Neutrophils % 71.5 % (37.0-80.0); Platelet Count 248 K/mm3 (142-424); Red Blood Count 3.11 M/mm3 (4.20-5.40); Red Cell Distribution Width 15.9 % (11.5-17.5); White Blood Count 10.3 K/mm3 (4.8-10.8)
[2025-02-14 06:23] LABS: Alanine Aminotransferase 14 U/L (12-78); Albumin Level 2.7 g/dl (3.5-5.0); Alkaline Phosphatase 108 U/L (38-126); Anion Gap 5.2 mEq/L (5-15); Aspartate Amino Transferase 23 U/L (14-36); Bilirubin,Total 0.3 mg/dl (0.2-1.3); Blood Urea Nitrogen 6 mg/dl (7-17); Calcium 8.4 mg/dl (8.4-10.2); Carbon Dioxide 25 mmol/L (22.0-30.0); Chloride 107 mmol/L (98-107); Creatinine Clearance Estimated 319 mL/min (50-200); Estimated Glomerular Filt Rate 259 ml/min (>60); GFR (African American) 314 ML/MIN (>60); Globulin 2.7 g/dL (1.3-3.2); Glucose 76 mg/dl (74-100); Potassium 4.2 mmoL/L (3.5-5.1); Sodium 133 mmol/L (136-145); Total Protein,Serum 5.4 g/dl (6.3-8.2)
[2025-02-14] MEDS: FLUOXETINE 20MG CAPSULE 20 MG PO (09:30)
[2025-02-14] MEDS: SENNA 8.6MG TABLET 8.6 MG PO (09:30)
[2025-02-14] MEDS: NITROFURANTOIN 100MG CAPSULE 100 MG PO (09:30)
[2025-02-14] MEDS: SIMETHICONE 80MG CHEWABLE TABLET 160 MG PO (09:30)
[2025-02-14 12:19] LABS: Magnesium 1.7 mg/dl (1.6-2.3)
--- NOTE | 2025-02-14 16:19 | P.DS_ITS ---
General Admission date:: 02/11/25 Discharge date: 02/14/25 HPI HPI HPI: Esmer Thompson is a 29-year-old at 39 weeks and 1 days gestation who presented to labor and delivery with regular painful contractions. Her has been uncomplicated. On presentation patient endorsed good movement and denies any leakage of fluid or vaginal bleeding. O+, antibody negative, rubella immune, hepatitis B negative, hepatitis C negative, RPR negative, HIV negative 1 hour GTT: 142. Followed by accucheck which were appropriate GBS negative Hospital Course Hospital Course Hospital Course: Esmer Thompson is a G8, P4044 day #3 following a primary low- transverse delivery secondary to failure progress. was uncomplicated. Delivery was complicated by hemorrhage and she has received 2 units of packed red blood cells. Her hemoglobin has been stable. She is doing well, and desires discharge home. No cystotomy noted when investigating the integrity of the bladder during her surgery. However there is a possible stitch in the top of the dome of the bladder. Christiansen catheter drainage suggested for 4 to 5 days. -Reports pain is much better controlled with p.o. pain medicine -Reports she is tolerating p.o. without nausea or vomiting. -Reports her lochia is scant. -Desires to use vasectomy for contraception -She is breast-feeding her male infant -Ambulating without difficulty. Denies chest pain shortness of breath or pain in her legs. No further complaints at this time. She delivered a live viable male on 02/11/2025 at 2042. Infant weighed 8 pounds 2 ounces. Apgars were 7 and 8 at 1 minute and 5 minutes. She has done well and has remained afebrile with her at her hospitalization. She is eating and drinking and ambulating. She has O Rh+ blood, she is rubella immune and was group B streptococcus negative. She will be discharged home to follow-up with Dr. Giordano next week. She will continue with her vitamins and iron. She has a prescription for Percocet and will continue these at home. She will take ibuprofen as well. She was given the usual instructions with respect to limiting her activity, driving and sexual activity. She was given instructions with respect to wound care. Her condition on discharge is stable and improved. Exam Data for Last 24 hours Vital signs and Labs for Last 24 Hours: Temp Pulse Resp BP Pulse Ox O2 Del Method 98.1 F 69 17 132/62 99 Room Air 02/14/25 04:45 02/14/25 04:45 02/14/25 04:45 02/14/25 04:45 02/13/25 21:25 02/13/25 21:25 Laboratory Results - last 24 hr 02/11/25 12:45: Crossmatch (AHG) See Detail 02/13/25 19:05: Hgb 8.8 L D, Hct 26.9 L 02/14/25 05:04: WBC 10.3, RBC 3.11 L, Hgb 8.4 L, Hct 26.0 L, MCV 83.6, MCH 27.0, MCHC 32.3, RDW 15.9, Plt Count 248, MPV 11.0 H, Neut % (Auto) 71.5, Lymph % (Auto) 18.6, [place] % (Auto) 7.0, Eos % (Auto) 1.8, Baso % (Auto) 0.6, Neut # (Auto) 7.4, Lymph # (Auto) 1.9, [place] # (Auto) 0.7, Eos # (Auto) 0.2, Baso # (Auto) 0.1, Sodium 133 L, Potassium 4.2 D, Chloride 107, Carbon Dioxide 25, Anion Gap 5.2, BUN 6 L, Creatinine 0.30 L, Estimated Creat Clear 319 H, Estimated GFR 259, Est GFR ( Amer) 314, Glucose 76 D, Calcium 8.4, Total Bilirubin 0.3, AST 23, ALT 14, Alkaline Phosphatase 108, Total Protein 5.4 L, Albumin 2.7 L, Globulin 2.7, Albumin/Globulin Ratio 1.0 L 02/14/25 12:00: Magnesium 1.7 I & O for Last 24 hours: Intake & Output 02/11/25 02/12/25 02/13/25 02/14/25 23:59 23:59 23:59 23:59 Intake Total 1900 / 1900 665 / 665 250 / 250 Output Total 900 / 900 3175 / 3175 1000 / 1000 Balance 1899 / 1899 -235 / -235 -2925 / -2925 -1000 / -1000 Weight 164 lb Narrative: General: patient is alert oriented in no acute distress and responds appropriately to questions. Appears to be in minimal pain. Sitting up in the chair and doing well HEENT: NCAT, EOMI, moist mucous membranes, neck supple with full ROM Cardiovascular: RRR +S1/S2, no murmurs or rubs Pulmonary: Clear to auscultation bilaterally, nonlabored breathing, symmetric chest rise Abdominal: Fundus below the umbilicus, firm, and tenderness appropriate for the period. : christiansen in place. clear urine. good output at least 35mL/hr Extremities: trace edema, no tenderness or cyanosis noted Skin: Normal turgor, intact, warm. Negative for erythema, pallor, petechia, or lesions Neurologic: Negative for sensory or motor deficit Psychiatric: Normal affect, normal thought process, good judgment and insight, no depression or anxious mood appreciated. Constitutional Constitutional: no acute distress *Routine HEENT Exam Head: Present normocephalic Eye: Present EOMI and PERRL ENT: Present mucous membranes moist *Routine Neck Exam Neck: Present supple; Absent lymphadenopathy *Routine Respiratory Exam Respiratory: Present CTA bilaterally *Routine Cardiovascular Exam Cardiovascular: Present RRR *Routine Abdominal Exam Abdominal: Present soft and normoactive bowel sounds; Absent tenderness *Routine Extremities Exam Extremities: Absent cyanosis, clubbing or edema *Routine Skin Exam Skin: Present warm; Absent rash *Routine Neurological Exam Neurological: Present alert and oriented X3 Results Data Completed and Pending Labs on day of discharge: Labs from last 24 hours 02/14/25 02/14/25 02/13/25 12:00 05:04 19:05 WBC 10.3 RBC 3.11 L Hgb 8.4 L 8.8 L D Hct 26.0 L 26.9 L MCV 83.6 MCH 27.0 MCHC 32.3 RDW 15.9 Plt Count 248 MPV 11.0 H Neut % (Auto) 71.5 Lymph % (Auto) 18.6 [place] % (Auto) 7.0 Eos % (Auto) 1.8 Baso % (Auto) 0.6 Neut # (Auto) 7.4 Lymph # (Auto) 1.9 [place] # (Auto) 0.7 Eos # (Auto) 0.2 Baso # (Auto) 0.1 Sodium 133 L Potassium 4.2 D Chloride 107 Carbon Dioxide 25 Anion Gap 5.2 BUN 6 L Creatinine 0.30 L Estimated Creat Clear 319 H Estimated GFR 259 Est GFR ( Amer) 314 Glucose 76 D Calcium 8.4 Magnesium 1.7 Total Bilirubin 0.3 AST 23 ALT 14 Alkaline Phosphatase 108 Total Protein 5.4 L Albumin 2.7 L Globulin 2.7 Albumin/Globulin Ratio 1.0 L Crossmatch (AHG) 02/11/25 12:45 WBC RBC Hgb Hct MCV MCH MCHC RDW Plt Count MPV Neut % (Auto) Lymph % (Auto) [place] % (Auto) Eos % (Auto) Baso % (Auto) Neut # (Auto) Lymph # (Auto) [place] # (Auto) Eos # (Auto) Baso # (Auto) Sodium Potassium Chloride Carbon Dioxide Anion Gap BUN Creatinine Estimated Creat Clear Estimated GFR Est GFR ( Amer) Glucose Calcium Magnesium Total Bilirubin AST ALT Alkaline Phosphatase Total Protein Albumin Globulin Albumin/Globulin Ratio Crossmatch (AHG) See Detail DS: Diagnosis Discharge Diagnosis (1) delivery delivered: Status: Acute Code(s): O82 - Encounter for delivery without indication (2) anemia: Status: Acute Code(s): O90.81 - Anemia of the puerperium (3) Hypomagnesemia: Status: Acute Code(s): E83.42 - Hypomagnesemia (4) Hypokalemia: Status: Acute Code(s): E87.6 - Hypokalemia (5) hemorrhage: Status: Acute Code(s): O72.1 - Other immediate hemorrhage Qualifiers: hemorrhage type: other immediate Qualified Code(s): O72.1 - Other immediate hemorrhage Meds Home Medications and Allergies Home Medications ?Medication ?Instructions ?Recorded ?Confirmed ?Type vits no.126-ferrous fum 1 tab PO DAILY 06/28/24 02/11/25 History 28 mg iron-folic acid 800 mcg tablet (Classic ) fluoxetine 20 mg capsule (Prozac) 20 mg PO DAILY #30 caps 12/30/24 02/11/25 Rx pantoprazole 40 mg tablet,delayed 40 mg PO DAILY #30 tabs 01/24/25 02/11/25 Rx release acetaminophen 500 mg tablet 500 mg PO Q6H PRN fever or pain 02/14/25 Rx #30 tabs ferrous sulfate 325 mg (65 mg 325 mg PO DAILY #30 tabs 02/14/25 Rx iron) tablet,delayed release ibuprofen 800 mg tablet 800 mg PO Q8H PRN pain #60 tabs 02/14/25 Rx oxycodone 5 mg tablet 5 mg PO Q8H PRN pain #25 tabs 02/14/25 Rx sennosides 8.6 mg tablet (Senna 8.6 mg PO BIDP PRN Constipation 02/14/25 Rx Lax) #60 tabs New Prescriptions to Start Prescriptions: acetaminophen Shawna Giordano ferrous sulfate Shawna Giordano ibuprofen Shawna Giordano oxycodone Shawna Giordano sennosides [Senna Lax] Shawna Giordano Allergies Allergy/AdvReac Type Severity Reaction Status Date / Time No Known Allergies Allergy Verified 02/06/25 11:15 Discharge Plan Disposition Patient Disposition: Home, Self-Care Discharge Order Discharge Orders: Discharge Order (Routine); Ordered 02/14/25 Ordered By: Shawna Giordano Follow up Plan Follow up with: Shawna Giordano DO [Staff Physician] - 02/26/25 10:30 am Prescriptions/Medication Reconciliation: New sennosides [Senna Lax] 8.6 mg Tablet 8.6 mg PO BIDP PRN (Reason: Constipation) Qty: 60 2RF ibuprofen 800 mg tablet 800 mg PO Q8H PRN (Reason: pain) Qty: 60 2RF acetaminophen 500 mg tablet 500 mg PO Q6H PRN (Reason: fever or pain) Qty: 30 3RF ferrous sulfate 325 mg (65 mg iron) tablet,delayed release (DR/EC) 325 mg PO DAILY Qty: 30 3RF oxycodone 5 mg tablet 5 mg PO Q8H PRN (Reason: pain) Qty: 25 0RF Continued fluoxetine [Prozac] 20 mg capsule 20 mg PO DAILY Qty: 30 1RF Classic 28 mg iron- 800 mcg tablet 1 tab PO DAILY pantoprazole 40 mg tablet,delayed release (DR/EC) 40 mg PO DAILY Qty: 30 2RF Problem Reconciliation Problems Reviewed?: Yes Patient Discharge Instructions ACTIVITY: Continue current activity DIET: regular diet Additional Instructions: Congratulations on the delivery of your sweet baby boy. It is my privilege to be your doctor and I am so thankful I could be a part of your special day. Discharge: 1. Take 800 mg Ibuprofen every 8 hours as needed for pain. You can also take 500-1000mg of Tylenol in between doses, every 6-8 hours. Use prescription pain medicine for pain you feel in between 8 hour interval. -No driving while taking narcotic pain medications. In order to drive you should be able to slam on the brakes without significant abdominal pain. 2. Wean from prescription pain medicine first. Do not drive while taking it. 3. Prescription pain medicine can make you constipated. Colace can be taken 1-2 times per day as you need. Make sure to drink at least 8 cups of water per day. 4. Iron supplements can make you constipated. Colace can be taken 1-2 times per day as you need. You can take iron tablets every other day if constipation is too bad. 5. Nothing in the vagina for 6 weeks - no intercourse, douching, tampons. No tub baths or swimming pools 6. Do not lift greater than 15 pounds for 6 weeks, this is the equivalent of 2 gallons of milk. 7. Reasons to return to L&D or call On-Call doctor - fever (greater than 100.4) - heavy vaginal bleeding (soaking through 1 pad in less than 2 hours or passing clots that are egg sized) - vaginal discharge (malodorous and/or purulent) - bleeding or discharge from her incision - severe headaches, leg tenderness/edema, or any other symptoms that warrant immediate medical attention. 8. depression/blues - Normal to feel anxious/overwhelmed for first 2 weeks - Talk to your doctor if: anxiety lasts over 2 weeks, trouble bonding with baby, withdrawing from other family members, thoughts of harming yourself or others Shawna Giordano DO [facility] [phone] *Nothing in the Vagina for 6 weeks* *No strenuous activity* *No heavy lifting* *No tub baths until okay's by * Patient Instructions: Depression, Hemorrhage, DI for , DI for Pre-eclampsia, [facility] Post Discharge Instructions Print Language: Mongolian Providers Primary Care Provider: Adam Owusu Admit Provider: Shawna Giordano Attending Provider: Shawna Giordano
== END 2025-02-14 17:53 | disposition home or self-care (01) | DRG 787 ==
LOC: OBOUT 12:40 → OB 12:40
PROVIDERS: Nurse Practitioner Obstetrics & Gynecology; Admitting Provider Obstetrics & Gynecology; PCP Internal Medicine Adolescent Medicine; Visit Provider Obstetrics & Gynecology
PROC: 10D00Z1 Extraction of Products of Conception, Low, Open Approach (ICD-10-PCS; CPT 59514; principal; 2025-02-11 20:00)
DX: O76 Abnormality in fetal heart rate and rhythm complicating labor and delivery (principal); O72.1 Other immediate postpartum hemorrhage; Z3A.39 39 weeks gestation of pregnancy; Z37.0 Single live birth; O75.81 Maternal exhaustion complicating labor and delivery; O32.4XX0 Maternal care for high head at term, not applicable or unspecified; O71.89 Other specified obstetric trauma; O71.81 Laceration of uterus, not elsewhere classified; O90.81 Anemia of the puerperium; E87.6 Hypokalemia; E83.42 Hypomagnesemia; O33.8 Maternal care for disproportion of other origin; F41.9 Anxiety disorder, unspecified
CPT/HCPCS: 36415; 36430; 59025; 80053; 81001; 82800; 83735; 85014; 85018; 85025; 86592; 86850; 94761; C9144; G0283; J0456; J0666; J0690; J1171; J2250; J2405; J3475; J7120; P9016

== ENCOUNTER 2025-02-17 13:49 | Outpatient (CLI) | payer OTHER, SELFPAY ==
[2025-02-17] VITALS (22 sets, daily range): BP systolic 117–173; BP diastolic 55–85; PULSE 55–85; RESP 17–18; TEMP 36.9; O2SAT 97–98; BMI 30.9
--- NOTE | 2025-02-17 13:56 | PC.NURSE ---
Pt arrived to the department with reports of blurred vision and a severe headache pain 6/10 that started this morning. Pt reports she took 800mg of PO Ibuprofen 1 hr prior to arrival.
[2025-02-17] MEDS: ACETAMINOPHEN 500MG TAB 1000 MG PO (14:30)
[2025-02-17] MEDS: DEXTROSE 5%-LACTATED RINGERS 1,000 ML 999 ML IV (14:59)
[2025-02-17 15:00] LABS: Microscopic, Urine URINE MICROSCOPIC (MICROSCOPIC)
[2025-02-17] MEDS: LABETALOL 100MG TABLET 200 MG PO (15:00)
[2025-02-17 15:03] LABS: Appearance,Urine CLEAR (Clear); Bilirubin,Urine Negative (Negative); Blood, Urine SMALL (Negative); Color,Urine YELLOW (Yellow); Glucose,Urine (UA) Negative (Negative); Ketones,Urine Negative (Negative); Leukocyte Esterase,Urine Negative (Negative); Nitrate,Urine Negative (Negative); PH,Urine 8.5 (5.0-8.5); Protein,Urine Negative (Negative)
[2025-02-17 15:30] LABS: Squamous Epithelial Cell,Urine Occasional #/hpf (0-5); WBC,Urine Occasional #/hpf (0-3)
[2025-02-17 15:31] LABS: Bacteria,Urine Trace /lpf
[2025-02-17 16:00] LABS: Basophils # 0.1 K/mm3 (0-0.2); Basophils % 0.6 % (0.1-2.0); Eosinophils # 0.2 K/mm3 (0.0-0.4); Eosinophils % 2.8 % (0.1-12.0); Hematocrit 28.7 % (37.0-47.0); Hemoglobin 9.4 g/dL (12.2-16.2); Lymphocytes # 1.7 K/mm3 (0.7-4.5); Lymphocytes % 21.4 % (10-50); Mean Corpuscular HGB Conc 32.8 g/dL (31.8-35.4); Mean Corpuscular Hemoglobin 27.8 pg (27.0-31.2); Mean Corpuscular Volume 84.9 fl (81-99); Mean Platelet Volume 10.4 fl (7.4-10.4); Monocytes # 0.6 K/mm3 (0.1-1.0); Neutrophils # 5.2 K/mm3 (1.8-7.8); Neutrophils % 66.7 % (37.0-80.0); Platelet Count 373 K/mm3 (142-424); Red Blood Count 3.38 M/mm3 (4.20-5.40); Red Cell Distribution Width 15.4 % (11.5-17.5); White Blood Count 7.8 K/mm3 (4.8-10.8)
[2025-02-17 16:01] LABS: Chloride 107 mmol/L (98-107); Sodium 138 mmol/L (136-145)
[2025-02-17 16:04] LABS: Alanine Aminotransferase 30 U/L (12-78); Aspartate Amino Transferase 31 U/L (14-36); Blood Urea Nitrogen 8 mg/dl (7-17); Carbon Dioxide 27 mmol/L (22.0-30.0); Creatinine Clearance Estimated 239 mL/min (50-200); Estimated Glomerular Filt Rate 186 ml/min (>60); GFR (African American) 225 ML/MIN (>60)
[2025-02-17 16:05] LABS: Calcium 8.6 mg/dl (8.4-10.2); Glucose 99 mg/dl (74-100)
[2025-02-17 16:11] LABS: Activated Partial Thrombo Time 24.5 seconds (22.8-30.6); Fibrinogen 474 mg/dL (229.9-363.5); Prothrombin Time 10.2 seconds (10.1-12.5)
--- NOTE | 2025-02-17 16:30 | PC.NURSE ---
Pt is laying supine in the bed and reports still having a headache and feeling very crumby
[2025-02-17 16:32] LABS: Uric Acid 4.1 mg/dl (2.5-6.2)
--- NOTE | 2025-02-17 17:00 | PC.NURSE ---
Dr. Alarcon is at the bedside to see the pt. Verbal orders given for Fioricet 1 tablet PO NOW
[2025-02-17] MEDS: SUMAtriptan SUCCINATE 25MG TABLET 25 MG PO (17:38)
--- NOTE | 2025-02-17 18:05 | PC.NURSE ---
Pt reports her headache is much better at this time. pt reports seeing spots before her eyes on occasion.
[2025-02-17] MEDS: NIFEdipine 10MG CAPSULE 10 MG PO (18:25)
--- NOTE | 2025-02-17 19:49 | PC.NURSE ---
Patient sitting up in bed holding NB, pt states headache is gone and she is not seeing spots,blurred vision, dizziness at this time. pt states she feels better. pt denies needs at this time
--- NOTE | 2025-02-17 19:57 | PC.NURSE ---
Called Dr. Alarcon at this time, report given, stated to D/C home and have her follow up with OB this week.
== END 2025-02-17 20:10 | disposition home or self-care (01) ==
LOC: OBOUT 13:51 → OB 13:52
PROVIDERS: Nurse Practitioner Obstetrics & Gynecology; PCP Internal Medicine Adolescent Medicine; Visit Provider Obstetrics & Gynecology
DX: O13.5 Gestational [pregnancy-induced] hypertension without significant proteinuria, complicating the puerperium (principal)
CPT/HCPCS: 80048; 81001; 84450; 84460; 84550; 85025; 85384; 85610; 85730; G0463

== ENCOUNTER 2025-03-06 03:21 | Observation (INO) | payer OTHER, SELFPAY ==
[2025-03-06] VITALS (21 sets, daily range): BP systolic 114–162; BP diastolic 57–97; PULSE 50–66; RESP 16–18; TEMP 36.8–37.1; O2SAT 96–100; BMI 26.4
--- NOTE | 2025-03-06 02:35 | PC.NURSE ---
Patient arriving to triage 3 weeks post with complaints of increased blood pressure, blurry vision and headache. Patient currently takes labetalol 200mg BID and prozac 20mg and continues her . Patient states headache started around 0000.
[2025-03-06 02:50] LABS: Microscopic, Urine URINE MICROSCOPIC (MICROSCOPIC)
[2025-03-06 02:53] LABS: Appearance,Urine CLEAR (Clear); Bilirubin,Urine Negative (Negative); Blood, Urine TRACE-L (Negative); Color,Urine YELLOW (Yellow); Glucose,Urine (UA) Negative (Negative); Ketones,Urine Negative (Negative); Leukocyte Esterase,Urine 1+ (Negative); Nitrate,Urine Negative (Negative); Protein,Urine Negative (Negative)
--- NOTE | 2025-03-06 03:00 | PC.NURSE ---
Dr. Barrera notified and report given, patient orders received for admit to observation, serial blood pressures, and [facility] labs. Discussed plan with patient and patient agreeable
[2025-03-06 03:02] LABS: Bacteria,Urine 1+ /lpf; Mucus,Urine 1+ /lpf
[2025-03-06 03:55] LABS: Basophils # 0.1 K/mm3 (0-0.2); Basophils % 0.9 % (0.1-2.0); Eosinophils # 0.1 K/mm3 (0.0-0.4); Eosinophils % 2.1 % (0.1-12.0); Hematocrit 34.2 % (37.0-47.0); Hemoglobin 10.9 g/dL (12.2-16.2); Lymphocytes # 2.2 K/mm3 (0.7-4.5); Lymphocytes % 32.7 % (10-50); Mean Corpuscular HGB Conc 31.9 g/dL (31.8-35.4); Mean Corpuscular Volume 84.9 fl (81-99); Mean Platelet Volume 9.9 fl (7.4-10.4); Monocytes # 0.6 K/mm3 (0.1-1.0); Monocytes % 9.1 % (1.7-9.3); Neutrophils # 3.7 K/mm3 (1.8-7.8); Neutrophils % 54.9 % (37.0-80.0); Nucleated Red Blood Cells # 0 10^3/uL; Nucleated Red Blood Cells % 0 %; Platelet Count 422 K/mm3 (142-424); Red Blood Count 4.03 M/mm3 (4.20-5.40); Red Cell Distribution Width 14.3 % (11.5-17.5); Red Cell Distribution Width-SD 44.1 fL; White Blood Count 6.7 K/mm3 (4.8-10.8)
[2025-03-06 04:15] LABS: Alanine Aminotransferase 17 U/L (12-78); Albumin Level 4.1 g/dl (3.5-5.0); Albumin/Globulin Ratio 1.2 (1.1-1.8); Alkaline Phosphatase 99 U/L (38-126); Anion Gap 14.8 mEq/L (5-15); Aspartate Amino Transferase 23 U/L (14-36); Bilirubin,Total 0.6 mg/dl (0.2-1.3); Blood Urea Nitrogen 16 mg/dl (7-17); Calcium 8.5 mg/dl (8.4-10.2); Carbon Dioxide 25 mmol/L (22.0-30.0); Chloride 102 mmol/L (98-107); Creatinine Clearance Estimated 163 mL/min (50-200); Estimated Glomerular Filt Rate 144 ml/min (>60); GFR (African American) 174 ML/MIN (>60); Globulin 3.4 g/dL (1.3-3.2); Glucose 97 mg/dl (74-100); Potassium 3.8 mmoL/L (3.5-5.1); Sodium 138 mmol/L (136-145); Total Protein,Serum 7.5 g/dl (6.3-8.2); Uric Acid 5.4 mg/dl (2.5-6.2)
[2025-03-06 04:54] LABS: Activated Partial Thrombo Time 27.1 seconds (22.8-30.6); Fibrinogen 255 mg/dL (229.9-363.5); INR 0.95 (0.9-1.1); Prothrombin Time 10.7 seconds (10.1-12.5)
[2025-03-06] MEDS: ACETAMINOPHEN 500MG TAB 1000 MG PO (04:58)
--- NOTE | 2025-03-06 04:58 | PC.NURSE ---
Tylenol and Ibuprofen given for headache 4/10 pain not relieved with dimming lights and rest.
[2025-03-06] MEDS: IBUPROFEN 400 MG TABLET 800 MG PO (05:24)
--- NOTE | 2025-03-06 06:30 | PC.NURSE ---
Dr. Barrera calling for update on patient , report given on patient BP and headache. No new orders at this time.
--- NOTE | 2025-03-06 06:55 | PC.NURSE ---
report given to Devi Ragland RN
--- NOTE | 2025-03-06 07:41 | PC.NURSE ---
Pt is asleep in the bed at this time
--- NOTE | 2025-03-06 09:07 | US_ITS ---
FINAL REPORT TECHNIQUE: Multiple transverse and longitudinal images CLINICAL HISTORY: RUQ pain and tenderness FINDINGS: There are numerous small gallstones measuring 5 mm or less. Borderline gallbladder wall thickening is identified without distention or surrounding fluid. No biliary ductal dilatation is appreciated. No fluid collections are seen. Limited portions of the right liver are unremarkable. Limited portions of the right kidney are unremarkable. IMPRESSION: Innumerable tiny gallstones without convincing acute cholecystitis or biliary obstruction. Reviewed, Interpreted and Dictated by Murali Wall MD Transcribed by Izabela Smallwood Authenticated and . [facility]
[2025-03-06 09:20] LABS: Amylase 54 U/L (30-110)
[2025-03-06 09:21] LABS: Lipase 106 U/L (23-300)
[2025-03-06] MEDS: SUMAtriptan SUCCINATE 25MG TABLET 25 MG PO (09:35)
[2025-03-06] MEDS: FLUOXETINE 20MG CAPSULE 20 MG PO (09:35)
--- NOTE | 2025-03-06 09:53 | P.CONPHA_ITS ---
Pharmacy Intervention Comments: MEDICATION RECONCILIATION COMPLETED ON PATIENT USING EXTERNAL FILL HISTORY FROM PHARMACY AND LIST FROM FITNESS PROFESSIONAL OFFICE. -SEJAL ESCUDEROD
--- NOTE | 2025-03-06 09:53 | HMH.PHAINT1 ---
Pharmacy Intervention Comments: MEDICATION RECONCILIATION COMPLETED ON PATIENT USING EXTERNAL FILL HISTORY FROM PHARMACY AND LIST FROM [facility] OFFICE. -SEJAL ESCUDEROD
--- NOTE | 2025-03-06 10:07 | PC.NURSE ---
Pt is resting in the bed the NB. pt denies any needs.
[2025-03-06] MEDS: LABETALOL 100MG TABLET 200 MG PO (11:40)
--- NOTE | 2025-03-06 12:09 | PC.NURSE ---
Pt wheeled off the unit per wheelchair to radiology for gallbladder U/S
--- NOTE | 2025-03-06 13:56 | EXP.HPDC ---
General Admission date:: 03/06/25 Discharge date: 03/06/25 *Admission Date: 03/06/25 *Chief complaint: Severe right upper gastric pain, migraine *History of present illness: She is a 29-year-old lady who is about 3 weeks post section for failure to progress. She was admitted with a severe headache and severe right upper quadrant pain. She has a history of migraines. She was admitted a week after delivery with migraine. We did a complete PIH workup at that time and it was negative. [facility] Disclaimer: The information contained in this section may have been updated after the patient was seen, as this information can be updated by other users. Medical History Hypokalemia Incomplete miscarriage Acute blood loss anemia Miscarriage Anxiety Generalized anxiety disorder Surgical History History of delivery S/P D&C (status post dilation and curettage) H/O cardiac radiofrequency ablation Hx of laparoscopy Family History No significant family history Social History Smoking Status: Never smoker second hand exposure: No alcohol intake: never substance use type: denies use current occupational status: employed Travel in the last 8 weeks: None adopted: No caregiver/support person: Yes (for her kids) foster care: No household members: spouse and children housing: house lives independently: Yes marital status: number of children: 3 number of grandchildren: 0 education level: high school service: No [place] [facility] [place]: No Hx Recent Travel: No sexually active: Yes caffeine: Yes physical activity: none romi/mormon: Evangelical special romi needs: No working smoke detector in home: Yes fire extinguisher in home: Yes carbon monox detector in home: Yes firearms in home: Yes firearms unloaded and locked: Yes do you feel safe at home: Yes victim of physical abuse: No victim of emotional abuse: No victim of sexual abuse: No would you like helpful sources: No Have you lived/traveled outside US in past 30 days?: No Contact w/someone who lives/traveled outside US past 30 days?: No Exposure to someone with infectious disease in past 14 days?: No Do you have a fever (greater than 100.4 F or 38 C)?: No Have you tested positive for COVID-19: No Exposed to someone with COVID-19 in past 14 days?: No Do you have a sore throat?: No Do you have a cough?: No Do you have any weakness?: No Are you experiencing any nausea/vomitting?: No Do you have any diarrhea?: No Are you experiencing any unusual bleeding?: No Do you have any muscle aches/pain?: No Do you have any abdominal pain?: No Are you experiencing loss of taste or smell?: No Other Medical History Have you received the Flu Vaccine for this season: Yes Have you received the Pneumonia Vaccine: No Review of Systems Review of Systems Review of systems:: pertinent systems reviewed and negative unless documented below Exam Data for Last 24 hours Vital signs and Labs for Last 24 Hours: Temp Pulse Resp BP Pulse Ox O2 Del Method 98.3 F 56 L 16 153/81 H 96 Room Air 03/06/25 08:44 03/06/25 11:26 03/06/25 11:26 03/06/25 11:26 03/06/25 08:44 03/06/25 13:00 Laboratory Results - last 24 hr 03/06/25 02:40: Urine Color Yellow, Urine Appearance Clear, Urine pH 7.0, Ur Specific [place] 1.020, Urine Protein Negative, Urine Glucose (UA) Negative, Urine Ketones Negative, Urine Blood Trace-l, Urine Nitrate Negative, Urine Bilirubin Negative, Urine Urobilinogen 1.0, Ur Leukocyte Esterase 1+ A, Urine RBC 3-5, Urine WBC 5-10, Ur Squamous Epith Cells 3-5, Urine Bacteria 1+, Urine Mucus 1+ 03/06/25 03:42: WBC 6.7, RBC 4.03 L, Hgb 10.9 L, Hct 34.2 L, MCV 84.9, MCH 27.0, MCHC 31.9, RDW 14.3, Plt Count 422, MPV 9.9, Neut % (Auto) 54.9, Lymph % (Auto) 32.7, Morgan % (Auto) 9.1, Eos % (Auto) 2.1, Baso % (Auto) 0.9, Neut # (Auto) 3.7, Lymph # (Auto) 2.2, Morgan # (Auto) 0.6, Eos # (Auto) 0.1, Baso # (Auto) 0.1, PT 10.7, INR 0.95, APTT 27.1, Fibrinogen 255, Sodium 138, Potassium 3.8, Chloride 102, Carbon Dioxide 25, Anion Gap 14.8, BUN 16, Creatinine 0.50 L, Estimated Creat Clear 163, Estimated GFR 144, Est GFR ( Amer) 174, Glucose 97, Uric Acid 5.4, Calcium 8.5, Total Bilirubin 0.6, AST 23, ALT 17, Alkaline Phosphatase 99, Total Protein 7.5 D, Albumin 4.1, Globulin 3.4 H, Albumin/Globulin Ratio 1.2, Amylase 54, Lipase 106 I & O for Last 24 hours: Intake & Output 03/04/25 03/05/25 03/06/25 03/07/25 11:59 11:59 11:59 11:59 Output Total 200 / 200 Balance -200 / -200 Weight 140 lb Constitutional Constitutional: no acute distress *Routine HEENT Exam Head: Present normocephalic Eye: Present EOMI and PERRL ENT: Present mucous membranes moist *Routine Neck Exam Neck: Present supple; Absent lymphadenopathy *Routine Respiratory Exam Respiratory: Present CTA bilaterally *Routine Cardiovascular Exam Cardiovascular: Present RRR *Routine Abdominal Exam Abdominal: Present soft and normoactive bowel sounds; Absent tenderness *Routine Rectal Exam Rectal:: deferred *Routine Genitalia Exam Genitalia:: deferred *Routine Extremities Exam Extremities: Absent cyanosis, clubbing or edema *Routine Skin Exam Skin: Present warm; Absent rash *Routine Neurological Exam Neurological: Present alert and oriented X3 Meds Home Medications and Allergies Home Medications ?Medication ?Instructions ?Recorded ?Confirmed ?Type vits no.126-ferrous fum 1 tab PO DAILY 06/28/24 03/06/25 History 28 mg iron-folic acid 800 mcg tablet (Classic ) ferrous sulfate 325 mg (65 mg 325 mg PO DAILY #30 tabs 02/14/25 03/06/25 Rx iron) tablet,delayed release sennosides 8.6 mg tablet (Senna 8.6 mg PO BIDP PRN Constipation 02/14/25 03/06/25 Rx Lax) #60 tabs fluoxetine 20 mg capsule (Prozac) 20 mg PO DAILY #30 caps 02/26/25 03/06/25 Rx acetaminophen 500 mg tablet 500 mg PO Q6HP PRN Mild Pain 03/06/25 03/06/25 History (Scale Score 1-4) ibuprofen 800 mg tablet 800 mg PO Q8HP PRN Mild Pain 03/06/25 03/06/25 History (Scale Score 1-4) labetalol 200 mg tablet 200 mg PO BID 03/06/25 03/06/25 History sumatriptan succinate 25 mg tablet 25 mg PO ONCE #10 tabs 03/06/25 Rx (Imitrex) New Prescriptions to Start Prescriptions: sumatriptan succinate [Imitrex] Edgardo Alarcon Allergies Allergy/AdvReac Type Severity Reaction Status Date / Time No Known Allergies Allergy Verified 02/26/25 10:27 Hospital Course Hospital Course Hospital Course: She was admitted to hospital overnight and received Tylenol. She subsequently received a dose of Imitrex and this seemed to relieve her headache. She had an ultrasound of her gallbladder that showed gallstones. I suspect she has cholecystitis as a result of her gallstones. We did [facility] blood work and this was all normal. As result of the normal laboratory investigations, abnormal ultrasound and resolution of her headache with Imitrex we are going to send her home. She will be given a prescription for Imitrex to take as needed for severe migraine. We will make arrangements for her to have an appointment with a general surgeon to have her gallbladder removed. Her condition on discharge is stable and improved. Results Data Completed and Pending Labs on day of discharge: Labs from last 24 hours 03/06/25 03/06/25 03:42 02:40 WBC 6.7 RBC 4.03 L Hgb 10.9 L Hct 34.2 L MCV 84.9 MCH 27.0 MCHC 31.9 RDW 14.3 Plt Count 422 MPV 9.9 Neut % (Auto) 54.9 Lymph % (Auto) 32.7 Morgan % (Auto) 9.1 Eos % (Auto) 2.1 Baso % (Auto) 0.9 Neut # (Auto) 3.7 Lymph # (Auto) 2.2 Morgan # (Auto) 0.6 Eos # (Auto) 0.1 Baso # (Auto) 0.1 PT 10.7 INR 0.95 APTT 27.1 Fibrinogen 255 Sodium 138 Potassium 3.8 Chloride 102 Carbon Dioxide 25 Anion Gap 14.8 BUN 16 Creatinine 0.50 L Estimated Creat Clear 163 Estimated GFR 144 Est GFR ( Amer) 174 Glucose 97 Uric Acid 5.4 Calcium 8.5 Total Bilirubin 0.6 AST 23 ALT 17 Alkaline Phosphatase 99 Total Protein 7.5 D Albumin 4.1 Globulin 3.4 H Albumin/Globulin Ratio 1.2 Amylase 54 Lipase 106 Urine Color Yellow Urine Appearance Clear Urine pH 7.0 Ur Specific [place] 1.020 Urine Protein Negative Urine Glucose (UA) Negative Urine Ketones Negative Urine Blood Trace-l Urine Nitrate Negative Urine Bilirubin Negative Urine Urobilinogen 1.0 Ur Leukocyte Esterase 1+ A Urine RBC 3-5 Urine WBC 5-10 Ur Squamous Epith Cells 3-5 Urine Bacteria 1+ Urine Mucus 1+ DS: Diagnosis Discharge Diagnosis (1) Migraine headache: Status: Acute Code(s): G43.909 - Migraine, unspecified, not intractable, without status migrainosus Qualifiers: Migraine type: migraine (< 15 days per month) without aura Status migrainosus presence: without status migrainosus Intractability: not intractable Qualified Code(s): G43.009 - Migraine without aura, not intractable, without status migrainosus (2) Cholecystitis: Status: Acute Code(s): K81.9 - Cholecystitis, unspecified Discharge Plan Disposition Patient Disposition: Home, Self-Care Follow up Plan Prescriptions/Medication Reconciliation: New sumatriptan succinate [Imitrex] 25 mg tablet 25 mg PO ONCE Qty: 10 1RF Rx Instructions: 25 mg orally; Continued Classic 28 mg iron- 800 mcg tablet 1 tab PO DAILY fluoxetine [Prozac] 20 mg capsule 20 mg PO DAILY Qty: 30 12RF sennosides [Senna Lax] 8.6 mg Tablet 8.6 mg PO BIDP PRN (Reason: Constipation) Qty: 60 2RF ferrous sulfate 325 mg (65 mg iron) tablet,delayed release (DR/EC) 325 mg PO DAILY Qty: 30 3RF labetalol 200 mg tablet 200 mg PO BID Patient Comments: TAKE ONE TABLET BY MOUTH TWICE DAILY ibuprofen 800 mg tablet 800 mg PO Q8HP PRN (Reason: Mild Pain (Scale Score 1-4)) acetaminophen 500 mg tablet 500 mg PO Q6HP PRN (Reason: Mild Pain (Scale Score 1-4)) Problem Reconciliation Problems Reviewed?: Yes Patient Discharge Instructions ACTIVITY: No heavy lifting DIET: continue same diet Print Language: Setswana Providers Primary Care Provider: Kelle Loyd Admit Provider: Tigist Barrera Attending Provider: Tigist Barrera
== END 2025-03-06 14:52 | disposition home or self-care (01) ==
LOC: OBOUT 03:22 → OB 03:22
PROVIDERS: Nurse Practitioner Obstetrics & Gynecology; Admitting Provider Obstetrics & Gynecology; PCP Nurse Practitioner Family; Visit Provider Obstetrics & Gynecology
DX: O99.893 Other specified diseases and conditions complicating puerperium (principal); G43.009 Migraine without aura, not intractable, without status migrainosus; O99.63 Diseases of the digestive system complicating the puerperium; K80.00 Calculus of gallbladder with acute cholecystitis without obstruction
CPT/HCPCS: 76705; 80053; 81001; 82150; 83690; 84550; 85025; 85384; 85610; 85730; 87086; G0378

== ENCOUNTER 2025-03-14 11:06 | Day surgery (SDC) | payer OTHER, SELFPAY ==
[2025-03-13 13:42] VITALS: BMI 25.3
[2025-03-14] VITALS (10 sets, daily range): BP systolic 117–168; BP diastolic 64–103; PULSE 65–82; RESP 16–20; TEMP 36.2–43; O2SAT 95–99
[2025-03-14 11:34] LABS: Urine Pregnancy, HCG Qual. Negative (Negative)
[2025-03-14] MEDS: 0.9 % SODIUM CHLORIDE 1000ML 1,000 ML 25 ML IV (11:54)
--- NOTE | 2025-03-14 12:29 | EXP.ANES.CKL ---
[facility] Disclaimer: The information contained in this section may have been updated after the patient was seen, as this information can be updated by other users. Medical History hemorrhage Hypokalemia Hypomagnesemia heart rate decelerations affecting management of mother Active labor at term Glucose intolerance of Symptomatic anemia Hypokalemia Incomplete miscarriage Acute blood loss anemia Miscarriage Anxiety Generalized anxiety disorder Surgical History History of delivery S/P D&C (status post dilation and curettage) H/O cardiac radiofrequency ablation Hx of laparoscopy Family History Other No significant family history Social History (Updated 03/14/25 @ 11:52 by Tamara Mack RN) Smoking Status: Never smoker second hand exposure: No alcohol intake: never substance use type: denies use current occupational status: employed Travel in the last 8 weeks: None adopted: No caregiver/support person: Yes (for her kids) foster care: No household members: spouse and children housing: house lives independently: Yes marital status: number of children: 3 number of grandchildren: 0 education level: high school service: No long-term: No Hx Recent Travel: No sexually active: Yes caffeine: Yes physical activity: none romi/bahai: Jehovah'S Witness special romi needs: No working smoke detector in home: Yes fire extinguisher in home: Yes carbon monox detector in home: Yes firearms in home: Yes firearms unloaded and locked: Yes do you feel safe at home: Yes victim of physical abuse: No victim of emotional abuse: No victim of sexual abuse: No would you like helpful sources: No Have you lived/traveled outside US in past 30 days?: No Contact w/someone who lives/traveled outside US past 30 days?: No Exposure to someone with infectious disease in past 14 days?: No Do you have a fever (greater than 100.4 F or 38 C)?: No Have you tested positive for COVID-19: No Exposed to someone with COVID-19 in past 14 days?: No Do you have a sore throat?: No Do you have a cough?: No Do you have any weakness?: No Do you have any diarrhea?: No Are you experiencing any unusual bleeding?: No Do you have any muscle aches/pain?: No Do you have any abdominal pain?: No Are you experiencing loss of taste or smell?: No [facility] Anesthesia Checklist Patient Identification Patient Identification: Arm Band Structural Data Admitted From: Home Planned Operative Procedure/s: Laparoscopic Cholecystectomy Consent for Planned Operative Procedure(s) Verified: Yes Verified Documents: Surgical Consent and History and Physical NPO Status Verified Time NPO: 00:00 Additional verifications Anesthesia Reactions: No Hx Blood Transfusions: Yes Blood Transfusion Reaction: No Airway Assessment Mallampati Score:: Class II C-Spine Mobility Assessed: Yes TMJ Mobility Assessed: Yes Dentition: Good Dentition Neurological Assessment Level of Consciousness: Awake, Alert and Appropriate Anesthesia Plan Anesthesia Risk discussed: Yes Anesthesia Plan: Verified ASA Class: II Anesthesia Type: General
[2025-03-14] MEDS: CEFAZOLIN SODIUM 2 GM in 0.9 % SODIUM CHLORIDE 100 ML IV (14:10)
[2025-03-14] MEDS: LIDOCAINE 1% 20ML MDV 20 ML (14:13)
[2025-03-14] MEDS: SODIUM CHLORIDE IRRIG SOLUTION 3,000 ML 200 ML IR (14:14)
--- NOTE | 2025-03-14 14:59 | P.OP_ITS ---
Date of procedure: 03/14/25 Pre-op Diagnosis:: Acute on chronic calculus cholecystitis Post-op Diagnosis:: Same Procedure performed:: Laparoscopic cholecystectomy Surgeon:: Evgeny Manzano MD Anesthesia: GETA Estimated blood loss (mL): 15 Operative findings:: Gallbladder distention Serosal weeping Infundibular thickening Operative note:: After informed consent was obtained, the patient was taken to the operating room and placed in the supine position. General anesthesia was induced and the abdomen was prepped and draped in a sterile fashion. After infiltration with local anesthetic an infraumbilical incision was made. A Veress needle was placed in position. The abdomen was insufflated. A 5 mm optical trocar was placed in position. Under direct visualization, a 12 mm trocar was placed in the subxiphoid position and 2 additional 5 mm trocars were placed in the right upper quadrant. The gallbladder was elevated up and over the liver margin. The tissue around the cystic duct was carefully dissected. 3 clips were placed prox imally and the duct was transected with harmonic fransisco. Harmonic fransisco were then utilized to dissect the gallbladder away from the liver margin with careful attention to the control of the cystic artery. The gallbladder was placed in a retrieval bag and removed through the subxiphoid trocar site. The right upper quadrant was thoroughly irrigated. No active bleeding or bile leak was noted. Fascia at the subxiphoid trocar site was reapproximated utilizing the NeoClose device. The remaining trocars were removed. All wounds were irrigated and skin was closed with 4-0 Monocryl in a subcuticular fashion. Steri-Strips were applied. The patient's anesthetic agents were reversed and extubation was completed prior to transfer to recovery in stable condition. Condition: stable Disposition: PACU Specimens:: Gallbladder and contents Complications:: No immediate
--- NOTE | 2025-03-14 15:14 | EXP.ANES.I ---
[facility] Anesthesia Record Part I Anesthesia Record I Intake, IV Amount: 900 Hydration: Adequate Estimated blood loss (mL): 15 Urine output (mL): 0 Blood Products used (#): none Blood Pressure: 168/103 SaO2: 95 Pulse Rate: 82 Airway Patency: Patent Respiratory Rate: 20 Temperature: 97.1 F Patient is:: Drowsy and Stable Stable to PACU at:: 15:04
[2025-03-14] MEDS: MORPHINE 2MG/ML SYRINGE 2 MG IV ×3 (15:15→15:28)
--- NOTE | 2025-03-18 10:02 | EXP.ANES.II ---
[facility] Anesthesia Record Part II Anesthesia Record Part II Discharge Time: 15:34 Destination: Surgical Day Care (OP Surgery) PACU nurse assessment reviewed?: Yes Patient Condition:: Good Anesthesia Complications:: None Swallowing reflex intact?: Yes Airway Patency: Patent Cyanosis?: No Blood Pressure: 135/77 SaO2: 97 Respiratory Rate: 18 Pulse Rate: 66 Temperature: 97 F Mental Status: Alert & Oriented Pain level:: 2 Nausea and/or vomitting:: None Intake, IV Amount: 0 Hydration: Adequate
[2025-03-18 10:04] VITALS: BP 135/77; PULSE 66; RESP 18; TEMP 36.1; O2SAT 97
== END 2025-03-14 16:12 | disposition home or self-care (01) ==
PROVIDERS: PCP Internal Medicine Adolescent Medicine; Visit Provider Surgery
PROC: 0FT44ZZ Resection of Gallbladder, Percutaneous Endoscopic Approach (ICD-10-PCS; CPT 47562; principal; 2025-03-14 12:25)
DX: K81.2 Acute cholecystitis with chronic cholecystitis (principal)
CPT/HCPCS: 47562; 81025; 96374; J3490; J0690; J1100; J2250; J2270; J2405; J3010; J7030